=== PATIENT | male | born 1940 | race Caucasian/White ===

== ENCOUNTER 2017-12-11 08:10 | Day surgery (SDC) | payer MEDICARE ==
[2017-12-10 08:16] VITALS: BMI 30.9
[~2017-12-11 08:10] MED LIST: ACETAMINOPHEN 325 MG TABLET (FP) PO PRN; KETOROLAC TROMETHAMINE 0.5% EYE DROP 1 DROP DROPS OD SCH
[2017-12-11] MEDS ORDERED: TROPICAMIDE 1% OPHTH SOLN 15 ML BOTTLE ONE (08:22)
[2017-12-11] MEDS ORDERED: OFLOXACIN 0.3% OPHTHALMIC SOLUTION 5 ML BOTTLE ONE (08:22)
[2017-12-11] MEDS ORDERED: PHENYLEPHRINE 2.5% OPHTH SOLN 15 ML BOTTLE ONE (08:22)
[2017-12-11] MEDS ORDERED: CYCLOPENTOLATE HCL 1% OPHTH SOLN 2 ML BOTTLE ONE (08:22)
[2017-12-11] MEDS: DICLOFENAC SODIUM 0.1% OPHTHALMIC 2.5ML BOTTLE ONE ×3 (08:25→08:35)
[2017-12-11] MEDS: PHENYLEPHRINE 2.5% OPHTH SOLN 15 ML BOTTLE OD SCH ×3 (08:25→08:35)
[2017-12-11] MEDS: CYCLOPENTOLATE HCL 1% OPHTH SOLN 2 ML BOTTLE OD SCH ×3 (08:25→08:35)
[2017-12-11] MEDS: TROPICAMIDE 1% OPHTH SOLN 15 ML BOTTLE OD SCH ×3 (08:25→08:35)
[2017-12-11] MEDS: OFLOXACIN 0.3% OPHTHALMIC SOLUTION 5 ML BOTTLE OD SCH ×3 (08:25→08:35)
[2017-12-11] MEDS ORDERED: MIDAZOLAM HCL 2 MG/2 ML SINGLE DOSE VIAL ONE (09:02)
[2017-12-11] MEDS ORDERED: TETRACAINE 0.5% OPHTH SOLN 2 ML BOTTLE OD ONE (09:11)
[2017-12-11] MEDS ORDERED: POVIDONE-IODINE 5% OPHTHALMIC PREP 30 ML SOLUTION OD ONE (09:13)
[2017-12-11] MEDS ORDERED: BSS (NA/CA/MG/K) BALANCED SALT SOLUTION OPHTH SOLN 15 ML BOTTLE OD ONE (09:23)
[2017-12-11] MEDS ORDERED: LIDOCAINE HCL 1% PRESERVATIVE FREE - 30ML VIAL IO ONE (09:23)
[2017-12-11] MEDS ORDERED: CHONDROITIN SU A/HYALUR SOD 1 KIT IO ONE (09:23)
[2017-12-11] MEDS ORDERED: TRYPAN BLUE 0.5 ML DISP.SYRIN IO ONE (09:29)
[2017-12-11] MEDS ORDERED: EPINEPHrine/PF 1 MG/1 ML (1:1,000) AMPULE SQ ONE (09:38)
[2017-12-11 10:37] VITALS: TEMP 97.9
[2017-12-11] MEDS ORDERED: TRYPAN BLUE 0.5 ML DISP.SYRIN ONE (10:43)
[2017-12-11 11:03] VITALS: BP 114/65; PULSE 80
--- NOTE | 2017-12-11 14:10 | OP ---
DATE OF OPERATION: DATE OF DICTATION: 12/11/2017 PREOPERATIVE DIAGNOSIS: Cataract, right eye. POSTOPERATIVE DIAGNOSIS: Cataract, right eye. OPERATION: Phacoemulsification of right cataract with posterior chamber intraocular lens implantation and capsular staining with Trypan blue, lens used [id number], 19.5 Diopter power, Serial No. [id number]. SURGEON: Charla Sofia M.D. ANESTHESIA: Topical MAC. COMPLICATIONS: None. PROCEDURE: The patient was brought to the operating room and correctly identified along with the operative site as well as correct intraocular lens kidd. He was then prepped and draped in the usual sterile fashion including 5% Betadine solution in the conjunctival sac and an eyelid drape. An eyelid speculum was then placed into the right eye. A paracentesis port was created and 0.5 mL of 1% Lidocaine preservative-free was injected intracamerally to provide analgesia. Viscoelastic was injected to inflate the anterior chamber. A temporal clear corneal would was created. A cystotome was noted to initiate the anterior capsulorrhexis. However, it was difficulty tear the anterior capsule. Visualization became difficult and so Trypan blue was used beneath the viscoelastic to stain the anterior capsule. The continuous circular capsulorrhexis was then performed. The capsule was noted to be somewhat elastic during the capsulorrhexis. The nucleus was then hydro-dissected and hydro-delineated was BSS and removed with phacoemulsification via a [id number] approach. A small wound burn was noted in the superior temporal clear corneal wound. The Viscoelastic was injected to inflate the anterior chamber and the capsular bag and the lens was injected into the capsular bag. The Viscoelastic was irrigated and aspirated from the eye. All wounds were tested after BSS was injected to inflate the anterior chamber. A small amount of leakage was noted to the corneal wound despite maintenance of the anterior chamber. A single 10-0 nylon suture was placed in the center of the temporal clear corneal wound. However, upon further testing, there still seemed to be some microleakage superior at the area of the wound burn. A second suture was placed in that area and then the wound was found to be watertight. The intraocular lens was noted to be well centered and covered by the anterior capsular border. No further suture was placed. Topical Vancomycin was given. The eye was patched and shielded. The patient was discharged from the operating room in stable condition. CHARLA SOFIA M.D. [id number] MTDD
== END 2017-12-11 11:09 | disposition home or self-care (01) ==
LOC: JASU-SURG 08:10
PROVIDERS: ATTEND Ophthalmology
PROC: 08RJ3JZ Replacement of Right Lens with Synthetic Substitute, Percutaneous Approach (ICD-10-PCS; principal; 2017-12-11 09:00)
DX: H26.9 Unspecified cataract (principal)

== ENCOUNTER 2018-03-06 13:11 | Inpatient (IN) | payer MEDICARE ==
--- NOTE | 2018-03-06 13:59 | PDOC ---
History of Present Illness - General Chief Complaint: Pain, Acute Stated Complaint: ARM PAIN Time Seen by Provider: 03/06/18 13:43 History Source: Patient Exam Limitations: No Limitations - History of Present Illness Initial Comments: 03/06/18 14:15 77 year old male with PMH NIDDM, HTN, HLD, gout, HCV (treated; past IVDU) presented to ED for right wrist/hand pain/swelling x2 days. He denied trauma or fall. He denied fever, chills, nausea, vomiting, abdominal pain, lightheadedness , chest pain, shortness of breath, palpitations. Pt was admitted for similar symptoms in 2017, MRI was negative for osteomyelitis , pt was treated with IV antibiotics and discharged. PSH: right wrist compound fracture (1949) Past History - Past Medical History Allergies/Adverse Reactions: Allergies Allergy/AdvReac Type Severity Reaction Status Date / Time No Known Allergies Allergy Verified 03/06/18 13:17 Home Medications: Ambulatory Orders Atorvastatin Ca [Lipitor] 20 mg PO HS 05/09/16 Hydrochlorothiazide [Hctz -] 25 mg PO DAILY 05/09/16 Acetaminophen [Tylenol .Regular Strength -] 650 mg PO Q6H PRN #0 tablet Aspirin 81 mg PO DAILY 03/06/18 Colchicine [Colcrys -] 0.6 mg PO BID 03/06/18 Ibuprofen [Advil -] 200 mg PO DAILY 03/06/18 metFORMIN HCL [Metformin HCl] 500 mg PO DAILY 03/06/18 Anemia: No Asthma: No Cancer: No Cardiac Disorders: No CVA: No COPD: No CHF: No Dementia: No Diabetes: No GI Disorders: No Disorders: No HTN: Yes Hypercholesterolemia: Yes Liver Disease: No Seizures: No Thyroid Disease: No - Surgical History Appendectomy: Yes - Suicide/Smoking/Psychosocial Hx Smoking History: Unknown if ever smoked Have you smoked in the past 12 months: No If you are a former smoker, when did you quit?: 40YRS AGO Hx Alcohol Use: No Drug/Substance Use Hx: No Substance Use Type: None Hx Substance Use Treatment: No Review of Systems - Review of Systems Able to Perform ROS?: Yes Comments:: 03/06/18 15:06 General: denied fever, chills, night sweats, generalized weakness. HEENT: denied sore throat, rhinorrhea, ear pain. Heart: denied chest pain, palpitations, syncope, lower extremity swelling, diaphoresis. Respiratory: denied shortness of breath, cough, sputum production, hemoptysis. Abdomen: denied abdominal pain, nausea, vomiting, diarrhea, constipation, blood in stool. : denied dysuria, increased urinary frequency, hematuria, urinary incontinence , flank pain. Back: denied back pain. Musculoskeletal: admitted to right wrist pain, right hand pain. Neurological: denied headache, dizziness, numbness, tingling, weakness. Skin: denied rash, laceration, abrasion. *Physical Exam - Vital Signs Last Vital Signs Temp Pulse Resp BP Pulse Ox 97.8 F 98 H 20 132/90 98 03/06/18 13:21 03/06/18 13:21 03/06/18 13:21 03/06/18 13:21 03/06/18 13:21 - Physical Exam Comments: 03/06/18 15:06 Constitutional: Well-nourished, Well-developed, appearing stated age. HEENT: head is normocephalic, atraumatic. EOMI. PERRLA. Neck: supple. Full ROM. Heart: regular rhythm. no murmurs, rubs or gallops. Lungs: clear to auscultation bilaterally. no crackles, rhonchi or wheezing. no stridor. Abdomen: soft, nontender. normal bowel sounds. no rebound, guarding, masses. Extremities: right wrist swollen, decreased ROM secondary to pain, erythema, tender to palpation, warm. right hand swollen, erythematous, tenderness to palpation of dorsum of hand, warm. 2+ radial pulse bilaterally. capillary refill <2 seconds. full sensation to right hand. moves all fingers. Neurological: CN 2-12 grossly intact. Moves all four extremities. Psych: awake, alert, oriented x3. Follows commands. Answers questions appropriately. Moderate Sedation - Procedure Monitoring Vital Signs: Procedure Monitoring Vital Signs Temperature 97.8 F 03/06/18 13:21 Pulse Rate 98 H 03/06/18 13:21 Respiratory Rate 20 03/06/18 13:21 Blood Pressure 132/90 03/06/18 13:21 O2 Sat by Pulse Oximetry (%) 98 03/06/18 13:21 ED Treatment Course - LABORATORY CBC & Chemistry Diagram: 03/07/18 06:15 12/07/18 06:15 Medical Decision Making - Medical Decision Making 03/06/18 15:09 77 year old male with PMH cellulitis requiring admission, HTN, DM, HLD presented to ED for right wrist/hand pain/swelling. Initial Vital Signs Temp Pulse Resp BP Pulse Ox 97.8 F 98 H 20 132/90 98 03/06/18 13:21 03/06/18 13:21 03/06/18 13:21 03/06/18 13:21 03/06/18 13:21 Afebrile. No tachycardia. No tachypnea. Mild hypertension. No hypoxia on room air. Pending cbc, cmp, lactate, blood cultures, esr, crp. EKG performed at 1555: rate 77, regular rhythm, normal axis, normal intervals, nonspecific ST changes. Pt has significant cellulitis with decreased ROM of involved joint, concerning for progression that could affect underlying structures. 2+ radial pulse at this time with no sensory deficits. Vancomycin and Zosyn ordered. Normal saline 1000 cc bolus ordered. Tylenol ordered for pain. 03/06/18 15:39 CBC WBC 12.0 K/mm3 (4.0-10.0) H 03/06/18 14:43 RBC 4.64 M/mm3 (4.00-5.60) 03/06/18 14:43 Hgb 14.3 GM/dL (11.7-16.9) 03/06/18 14:43 Hct 44.2 % (35.4-49) 03/06/18 14:43 MCV 95.4 fl (80-96) 03/06/18 14:43 MCH 30.7 pg (25.7-33.7) 03/06/18 14:43 MCHC 32.2 g/dl (32.0-35.9) 03/06/18 14:43 RDW 14.6 % (11.9-15.9) 03/06/18 14:43 Plt Count 260 K/MM3 (134-434) 03/06/18 14:43 MPV 8.2 fl (7.5-11.1) 03/06/18 14:43 Absolute Neuts (auto) 8.0 K/mm3 (1.5-8.0) 03/06/18 14:43 Neutrophils % 66.9 % (42.8-82.8) 03/06/18 14:43 Lymphocytes % 18.4 % (8-40) 03/06/18 14:43 Monocytes % 12.0 % (3.8-10.2) H 03/06/18 14:43 Eosinophils % 2.1 % (0-4.5) 03/06/18 14:43 Basophils % 0.6 % (0-2.0) 03/06/18 14:43 Nucleated RBC % 0 % (0-0) 03/06/18 14:43 Leukocytosis. No anemia. 03/06/18 15:54 CMP Sodium 138 mmol/L (136-145) 03/06/18 14:43 Potassium 3.9 mmol/L (3.5-5.1) 03/06/18 14:43 Chloride 99 mmol/L (98-107) 03/06/18 14:43 Carbon Dioxide 31 mmol/L (21-32) 03/06/18 14:43 Anion Gap 8 MMOL/L (8-16) 03/06/18 14:43 BUN 20 mg/dL (7-18) H 03/06/18 14:43 Creatinine 1.1 mg/dL (0.55-1.3) 03/06/18 14:43 Creat Clearance w eGFR > 60 (>60) 03/06/18 14:43 Random Glucose 114 mg/dL (74-106) H 03/06/18 14:43 Uric Acid 7.8 mg/dL (2.6-7.2) H 03/06/18 14:43 Calcium 9.4 mg/dL (8.5-10.1) 03/06/18 14:43 C-Reactive Protein 5.1 MG/DL (0.00-0.3) H 03/06/18 14:43 No electrolyte abnormalities. No AJAY. Elevated uric acid. Elevate CRP. Elevated ESR, 31. Lactate 3.2 - 1000 cc normal saline bolus given - Will continue to hydrate - Will repeat 03/06/18 18:[address] Cullen about the patient, who will admit the patient to med/ surg. CXR report: well aerated lungs. degenerative sine changes. prominent heart. unfolded aorta. normal alec. some infrahilar calcifications. calcification in the right paratracheal area. Hand/wrist XR: previous stabilization of distal radius fracture with a plate and screws. Degenerative changes most prevalent at the MCP joint. no acute fracture or subluxation. some swelling. no foreign body or soft tissue air. questionable sclerosis in the distal phalynx of the right fourth digit. *DC/Admit/Observation/Transfer Diagnosis at time of Disposition: Cellulitis, Lactic acidosis, Leukocytosis - Discharge Dispostion Condition at time of disposition: Stable Decision to Admit order: Yes - Referrals - Patient Instructions - Post Discharge Activity
--- NOTE | 2018-03-06 15:04 | PDOC ---
Attending Attestation - Resident Resident Name: Allison Kennedy - ED Attending Attestation I have performed the following: I have examined & evaluated the patient, The case was reviewed & discussed with the resident, I agree w/resident's findings & plan, Exceptions are as noted - HPI HPI: 77 yo M hx HTN, HL, gout, HCV, prior compound fracture to the R wrist, recently diagnosed with DM presents with R wrist pain and swelling. No known injury. Denies fever, chills. - Physicial Exam PE: GENERAL: Awake, alert, and fully oriented, in no acute distress HEAD: No signs of trauma EYES: PERRLA, EOMI, sclera anicteric, conjunctiva clear ENT: Auricles normal inspection, hearing grossly normal, nares patent, oropharynx clear without exudates. Moist mucosa NECK: Normal ROM, supple, no lymphadenopathy, JVD, or masses LUNGS: Breath sounds equal, clear to auscultation bilaterally. No wheezes, and no crackles HEART: Regular rate and rhythm, normal S1 and S2, no murmurs, rubs or gallops ABDOMEN: Soft, nontender, normoactive bowel sounds. No guarding, no rebound. No masses EXTREMITIES: R wrist with dec ROM due to pain. +Swelling to the hand and fingers on the R. Remainder of extremities with normal range of motion, no edema. No clubbing or cyanosis. NEUROLOGICAL: Cranial nerves II through XII grossly intact. Normal speech, normal gait SKIN: Warm, Dry, normal turgor, no rashes. +Erythema to the R hand, dorsal surface as well as over the volar surface of the wrist. +Warmth. Cap refill < 2s. +Well-healed scar over the R wrist, dorsal surface. - Medical Decision Making R wrist with redness, swelling concerning for cellulitis (especially in light of recent dx of DM). Also concerning that he has hardware in the wrist from prior surgery. Will give abx and admit.
[2018-03-06 15:11] LABS: BASO % 0.6 % (0-2.0); EOS % 2.1 % (0-4.5); HEMATOCRIT 44.2 % (35.4-49); HEMOGLOBIN 14.3 GM/dL (11.7-16.9); LYMPH % 18.4 % (8-40); MCH 30.7 pg (25.7-33.7); MCHC 32.2 g/dl (32.0-35.9); MEAN CELL VOLUME 95.4 fl (80-96); MEAN PLT VOLUME 8.2 fl (7.5-11.1); NEUT % 66.9 % (42.8-82.8); PLATELET COUNT 260 K/MM3 (134-434); RBC 4.64 M/mm3 (4.00-5.60); RDW 14.6 % (11.9-15.9)
[2018-03-06] MEDS ORDERED: VANCOMYCIN 1,000 MG in DEXTROSE 5%-WATER - 250 ML IVPB ONE (15:11)
[2018-03-06] MEDS ORDERED: PIPERACILLIN/TAZOB 4.5 GM 4.5 GM in DEXTROSE 5%-WATER 100 ML IVPB ONE (15:12)
[2018-03-06] MEDS ORDERED: ACETAMINOPHEN 325 MG TABLET (FP) PO ONE ×2 (15:14→22:00)
[2018-03-06] MEDS ORDERED: SODIUM CHLORIDE 1,000 ML IV STA ×2 (15:14→17:44)
[2018-03-06 15:20] LABS: INR 1.17 (0.83-1.09); PROTHROMBIN TIME (PATIENT) 13.8 SEC (9.7-13.0)
[2018-03-06 15:22] LABS: ACTIVATED PTT 25.9 SECONDS (25.2-36.5)
[2018-03-06] MEDS ORDERED: PIPERACILLIN/TAZOB 4.5 GM 4.5 GM/100 ML BAG IVPB ONE (15:24)
[2018-03-06] MEDS ORDERED: ACETAMINOPHEN 325 MG TABLET (FP) ONE (15:24)
[2018-03-06] MEDS ORDERED: VANCOMYCIN 1 GRAM (PRE-DOCKED) 1,000 MG/250 ML BAG IVPB ONE (15:25)
[2018-03-06 15:27] LABS: ANION GAP 8 MMOL/L (8-16); BLOOD UREA NITROGEN 20 mg/dL (7-18); CALCIUM 9.4 mg/dL (8.5-10.1); CHLORIDE 99 mmol/L (98-107); CO2 31 mmol/L (21-32); CREATININE 1.1 mg/dL (0.55-1.3); GLUCOSE,RANDOM 114 mg/dL (74-106); POTASSIUM 3.9 mmol/L (3.5-5.1); SODIUM 138 mmol/L (136-145); URIC ACID 7.8 mg/dL (2.6-7.2)
[2018-03-07] MEDS: IBUPROFEN 600 MG TABLET (FP) PO PRN ×2 (03:55→09:55)
[2018-03-07] MEDS ORDERED: PIPERACILLIN/TAZOBACTAM 3.375 GM VIAL IVPB ONE ×3 (03:59→17:37)
[2018-03-07] MEDS ORDERED: DEXTROSE 5%-WATER - 50 ML IVPB ONE ×3 (04:00→17:37)
[2018-03-07] MEDS ORDERED: VANCOMYCIN 1 GRAM (PRE-DOCKED) 1,000 MG/250 ML BAG IVPB ONE (04:00)
[2018-03-07] MEDS ORDERED: PIPERACILLIN/TAZOB 3.375 GM 3.375 GM in DEXTROSE 5%-WATER - 50 ML IVPB ONE (05:00)
[2018-03-07] MEDS: metFORMIN HCL 500 MG TABLET (FP) PO SCH (06:14)
[2018-03-07] MEDS: INSULIN SLIDING SCALE (NOVOLOG) 1 VIAL SQ SCH ×4 (06:18→21:19)
[2018-03-07 08:24] LABS: BASO % 0.5 % (0-2.0); EOS % 3.6 % (0-4.5); HEMATOCRIT 39.1 % (35.4-49); HEMOGLOBIN 12.7 GM/dL (11.7-16.9); LYMPH % 24.6 % (8-40); MCHC 32.6 g/dl (32.0-35.9); MEAN CELL VOLUME 95.2 fl (80-96); MEAN PLT VOLUME 8.2 fl (7.5-11.1); MONO % 9.4 % (3.8-10.2); NEUT % 61.9 % (42.8-82.8); PLATELET COUNT 221 K/MM3 (134-434); RBC 4.11 M/mm3 (4.00-5.60); RDW 14.3 % (11.9-15.9); WHITE BLOOD COUNT 11.8 K/mm3 (4.0-10.0)
[2018-03-07 08:46] LABS: ALBUMIN 2.9 g/dl (3.4-5.0); ALK PHOS 64 U/L (45-117); ANION GAP 9 MMOL/L (8-16); BILIRUBIN,TOTAL 0.7 mg/dL (0.2-1); BLOOD UREA NITROGEN 16 mg/dL (7-18); CALCIUM 8.1 mg/dL (8.5-10.1); CHLORIDE 103 mmol/L (98-107); CO2 26 mmol/L (21-32); CREATININE 1.1 mg/dL (0.55-1.3); GLUCOSE,RANDOM 137 mg/dL (74-106); POTASSIUM 3.2 mmol/L (3.5-5.1); SGOT/AST 17 U/L (15-37); SGPT/ALT 13 U/L (13-61); SODIUM 138 mmol/L (136-145); TOT PROT 6.2 g/dl (6.4-8.2)
[2018-03-07] MEDS: ASPIRIN 81 MG CHEWABLE TABLETS PO SCH (09:55)
[2018-03-07] MEDS: HYDROCHLOROTHIAZIDE 25 MG TABLET (FP) PO SCH (09:55)
[2018-03-07] MEDS: HEPARIN NA (PORCINE) 5,000 UNITS/ML 1ML VIAL SQ SCH ×2 (09:56→21:21)
--- NOTE | 2018-03-07 11:46 | EKG ---
Test Reason : Blood Pressure : / mmHG Vent. Rate : 077 BPM Atrial Rate : 077 BPM P-R Int : 144 ms QRS Dur : 088 ms QT Int : 402 ms P-R-T Axes : 037 007 024 degrees QTc Int : 454 ms POOR DATA QUALITY, INTERPRETATION MAY BE ADVERSELY AFFECTED NORMAL SINUS RHYTHM NORMAL ECG NO PREVIOUS ECGS AVAILABLE Confirmed by GABRIEL AQUINO MD ([id number]) on 03/07/2018 11:46:41 AM Referred By: Confirmed By:GABRIEL AQUINO MD
--- NOTE | 2018-03-07 12:27 | CON.ID ---
Consult Consult Specialty:: infectious diseases Referred by:: Reason for Consultation:: swelling of the rt hand - History of Present Illness Chief Complaint: swelling of the rt hand History of Present Illness: 77 year old male with PMH NIDDM, HTN, HLD, gout, HCV (treated; past IVDU) admitted for right wrist/hand pain/swelling x2 days. He denied trauma or fall. He denied fever, chills, nausea, vomiting, abdominal pain, lightheadedness, chest pain, shortness of breath, palpitations. patient does not know how it started and says it suddenly came on. patient also mentions that he has been having pain. patient admitted and iv abx given and patient says that his swelling has improved - History Source History Provided By: Patient Limitations to Obtaining History: No Limitations - Alcohol/Substance Use Hx Alcohol Use: No - Smoking History Smoking history: Unknown if ever smoked Have you smoked in the past 12 months: No If you are a former smoker, when did you quit?: 40YRS AGO Home Medications - Allergies Allergies/Adverse Reactions: Allergies Allergy/AdvReac Type Severity Reaction Status Date / Time No Known Allergies Allergy Verified 03/06/18 13:17 - Home Medications Home Medications: Ambulatory Orders Atorvastatin Ca [Lipitor] 20 mg PO HS 05/09/16 Hydrochlorothiazide [Hctz -] 25 mg PO DAILY 05/09/16 Acetaminophen [Tylenol .Regular Strength -] 650 mg PO Q6H PRN #0 tablet Aspirin 81 mg PO DAILY 03/06/18 Colchicine [Colcrys -] 0.6 mg PO BID 03/06/18 Ibuprofen [Advil -] 200 mg PO DAILY 03/06/18 metFORMIN HCL [Metformin HCl] 500 mg PO DAILY 03/06/18 Review of Systems - Review of Systems Constitutional: reports: No Symptoms Eyes: reports: No Symptoms HENT: reports: No Symptoms Neck: reports: No Symptoms Cardiovascular: reports: No Symptoms Respiratory: reports: No Symptoms Gastrointestinal: reports: No Symptoms Genitourinary: reports: No Symptoms Musculoskeletal: reports: Muscle Weakness Integumentary: reports: Erythema, Other (swelling of the hand) Neurological: reports: No Symptoms Endocrine: reports: No Symptoms Hematology/Lymphatic: reports: No Symptoms Psychiatric: reports: No Symptoms Physical Exam Vital Signs: Vital Signs Temperature 97.6 F 03/07/18 10:00 Pulse Rate 74 03/07/18 10:00 Respiratory Rate 20 03/07/18 10:00 Blood Pressure 137/74 03/07/18 10:00 O2 Sat by Pulse Oximetry (%) 96 03/07/18 09:00 Labs: CBC, BMP 03/07/18 06:15 03/07/18 06:15 Imaging - Results Chest X-ray: Report Reviewed, Image Reviewed X-ray: Report Reviewed, Image Reviewed Assessment/Plan lactic acidosis sepsis leukocytosis swelling of the hand plan will continue vanco and zosyn elevation of the hand await for cx report rest as per the team will order a utox
[2018-03-07] MEDS: PIPERACILLIN/TAZOB 3.375 GM 3.375 GM in DEXTROSE 5%-WATER - 50 ML IVPB SCH ×2 (14:21→17:43)
--- NOTE | 2018-03-07 15:44 | HP ---
Admitting History and Physical - Smoking History Smoking history: Unknown if ever smoked Have you smoked in the past 12 months: No If you are a former smoker, when did you quit?: 40YRS AGO - Alcohol/Substance Use Hx Alcohol Use: No Home Medications - Allergies Allergies/Adverse Reactions: Allergies Allergy/AdvReac Type Severity Reaction Status Date / Time No Known Allergies Allergy Verified 03/06/18 13:17 - Home Medications Home Medications: Ambulatory Orders Atorvastatin Ca [Lipitor] 20 mg PO HS 05/09/16 Hydrochlorothiazide [Hctz -] 25 mg PO DAILY 05/09/16 Acetaminophen [Tylenol .Regular Strength -] 650 mg PO Q6H PRN #0 tablet Aspirin 81 mg PO DAILY 03/06/18 Colchicine [Colcrys -] 0.6 mg PO BID 03/06/18 Ibuprofen [Advil -] 200 mg PO DAILY 03/06/18 metFORMIN HCL [Metformin HCl] 500 mg PO DAILY 03/06/18 Physical Examination Vital Signs: Vital Signs Temperature 97.6 F 03/07/18 10:00 Pulse Rate 74 03/07/18 10:00 Respiratory Rate 20 03/07/18 10:00 Blood Pressure 137/74 03/07/18 10:00 O2 Sat by Pulse Oximetry (%) 96 03/07/18 09:00 Labs: CBC, BMP 03/07/18 06:15 03/07/18 06:15
[2018-03-07] MEDS: VANCOMYCIN 1 GRAM (PRE-DOCKED) 1,000 MG/250 ML BAG IVPB SCH (16:04)
[2018-03-07] MEDS ORDERED: IBUPROFEN 600 MG TABLET (FP) PO PRN (16:24)
[2018-03-07 17:49] LABS: COCAINE, UR NEGATIVE ng/ml (CUTOFF=300); METHADONE, UR NEGATIVE ng/ml (CUTOFF=300); OPIATES, URI NEGATIVE ng/ml (CUTOFF=300); PHENCYCLIDINE,URINE NEGATIVE ng/ml (CUTOFF=25); URINE AMPHETAMINES NEGATIVE ng/ml (CUTOFF=500); URINE BARBITURATES NEGATIVE ng/ml (CUTOFF=200); URINE BENZODIAZEPINES NEGATIVE ng/ml (CUTOFF=200)
[2018-03-07] MEDS ORDERED: VANCOMYCIN 1 GRAM (PRE-DOCKED) 1,000 MG/250 ML BAG IVPB SCH (18:00)
[2018-03-07] MEDS ORDERED: PIPERACILLIN/TAZOB 3.375 GM 3.375 GM in DEXTROSE 5%-WATER - 50 ML IVPB SCH (18:00)
[2018-03-07] MEDS: ATORVASTATIN CA 20 MG TABLET (FP) PO SCH (21:21)
[2018-03-07] MEDS: oxyCODONE HCL 5 MG TABLET PO PRN (22:32)
[2018-03-08] MEDS ORDERED: DEXTROSE 5%-WATER - 50 ML IVPB ONE ×4 (01:36→21:13)
[2018-03-08] MEDS ORDERED: PIPERACILLIN/TAZOBACTAM 3.375 GM VIAL IVPB ONE ×4 (01:36→21:12)
[2018-03-08] MEDS: PIPERACILLIN/TAZOB 3.375 GM 3.375 GM in DEXTROSE 5%-WATER - 50 ML IVPB SCH ×3 (01:47→17:35)
[2018-03-08] MEDS: INSULIN SLIDING SCALE (NOVOLOG) 1 VIAL SQ SCH ×4 (06:03→22:05)
[2018-03-08] MEDS: IBUPROFEN 600 MG TABLET (FP) PO PRN (06:33)
[2018-03-08] MEDS: metFORMIN HCL 500 MG TABLET (FP) PO SCH (06:34)
[2018-03-08] MEDS: ASPIRIN 81 MG CHEWABLE TABLETS PO SCH (09:15)
[2018-03-08] MEDS: HYDROCHLOROTHIAZIDE 25 MG TABLET (FP) PO SCH (09:15)
[2018-03-08] MEDS: HEPARIN NA (PORCINE) 5,000 UNITS/ML 1ML VIAL SQ SCH ×2 (09:16→21:58)
--- NOTE | 2018-03-08 12:05 | CONSULT ---
Consult Consult Specialty:: Hand and Microsurgery Reason for Consultation:: hand swelling - History of Present Illness Chief Complaint: right and swelling History of Present Illness: 77 yo male PMH NIDDM, HTN, HLD, gout, HCV (treated; past IVDU) admitted for right wrist/hand pain/swelling x2 days. He denied trauma or fall. He denied fever, chills, nausea, vomiting, abdominal pain, lightheadedness, chest pain, shortness of breath, palpitations. patient does not know how it started and says it suddenly came on. patient also mentions that he has been having pain. patient admitted and IV Abx given and patient says that his swelling has improved. He had a similar episode a few years back. His ROM is limited and he has numbness in the right hand. The swelling has subsided since admission. reports we were called to assess. - History Source History Provided By: Patient, Medical Record Limitations to Obtaining History: No Limitations - Past Medical History Cardio/Vascular: Yes: HTN, Hyperlipdemia Hepatobiliary: Yes: Hepatitis C Rheumatology: Yes: Gout Additional Medical History: obesity - Alcohol/Substance Use Hx Alcohol Use: No - Smoking History Smoking history: Unknown if ever smoked Have you smoked in the past 12 months: No If you are a former smoker, when did you quit?: 40YRS AGO - Social History Place of : [facility] History of Recent Travel: No Home Medications - Allergies Allergies/Adverse Reactions: Allergies Allergy/AdvReac Type Severity Reaction Status Date / Time No Known Allergies Allergy Verified 03/06/18 13:17 - Home Medications Home Medications: Ambulatory Orders Atorvastatin Ca [Lipitor] 20 mg PO HS 05/09/16 Hydrochlorothiazide [Hctz -] 25 mg PO DAILY 05/09/16 Acetaminophen [Tylenol .Regular Strength -] 650 mg PO Q6H PRN #0 tablet Aspirin 81 mg PO DAILY 03/06/18 Colchicine [Colcrys -] 0.6 mg PO BID 03/06/18 Ibuprofen [Advil -] 200 mg PO DAILY 03/06/18 metFORMIN HCL [Metformin HCl] 500 mg PO DAILY 03/06/18 Review of Systems - Review of Systems Constitutional: denies: Chills, Fever Eyes: denies: Blurred Vision, Recent Change in Vision HENT: denies: Difficult Swallowing, Throat Pain Cardiovascular: denies: Chest Pain, Palpitations Respiratory: denies: Cough, SOB Gastrointestinal: denies: Abdominal Pain Genitourinary: denies: Dysuria, Flank Pain Breasts: reports: No Symptoms Reported. denies: Pain Musculoskeletal: reports: Extremity Pain (right and recurrent swelling), Joint Swelling (Gout) Integumentary: denies: Erythema, Lump, Rash Neurological: denies: Seizure, Syncope Endocrine: denies: Unexplained Weight Gain, Unexplained Weight Loss Hematology/Lymphatic: denies: Easily Bruised, Excessive Bleeding Psychiatric: denies: Anxiety, Depression Physical Exam Vital Signs: Vital Signs Temperature 97.7 F 03/08/18 08:24 Pulse Rate 86 03/08/18 08:24 Respiratory Rate 18 03/08/18 08:24 Blood Pressure 129/76 03/08/18 08:24 O2 Sat by Pulse Oximetry (%) 96 03/07/18 20:05 Vital Signs Period Temp Pulse Resp BP Sys/Holloway Pulse Ox Last 24 Hr 97.6 F-98.0 F 63-86 16-20 116-138/57-87 96 Constitutional: Yes: Well Nourished, No Distress, Calm, Obese Eyes: Yes: Conjunctiva Clear, EOM Intact HENT: Yes: Atraumatic, Normocephalic Neck: Yes: Supple, Trachea Midline Cardiovascular: Yes: Regular Rate and Rhythm, S1, S2 Respiratory: Yes: Regular, CTA Bilaterally Gastrointestinal: Yes: Normal Bowel Sounds, Soft. No: Tenderness Renal/: No: CVA Tenderness - Left, CVA Tenderness - Right Breast(s): No: Discharge from Nipple, Nipple Inversion, Skin Changes Musculoskeletal: No: Joint Swelling, Muscle Pain, Muscle Weakness Extremities: No: Cool, Cyanosis Edema: No Peripheral Pulses WNL: Yes Integumentary: No: Jaundice, Pressure Ulcer, Rash Wound/Incision: Yes: Clean/Dry, Well Approximated Neurological: Yes: Alert, Oriented Psychiatric: Yes: Alert, Oriented Labs: CBC, BMP 03/07/18 06:15 03/07/18 06:15 Imaging - Results X-ray: Report Reviewed, Image Reviewed (No acute fracture or disclocation) Cat Scan: Report Reviewed, Image Reviewed (no obvisous fluid collections adjacent to the hardare in the radial shaft) Problem List - Problems (1) Cellulitis of hand, right Assessment/Plan: right hand acute swelling distally in the forearm hand and all fingers. the differential includes a gout flare versus infectious process adjacent to forearm hardware. Continue IV antibiotics IV fluid hydration CTscan RUE eval soft tissue and fluid elevation of the extremity monitor serum uric acid start colchicine hold ibuprofen start indomethacin OR for explantation of forearm hardware, and carpal tunnel release, and cultures 03/10 Discussed with patient risks, benefits and alternatives for aforementioned procedure, including but not limited to bleeding, infection, injury to adjacent structures, loss of function, need for further procedures, ; alternatives include antibiotics, delayed or no surgery - risks of this include failure of nonoperative therapy, sepsis, recurrence, . Patient desires to proceed with operation - will take to OR for above. Informed consent signed for same. Thank you for the opportunity to participate in the care of this patient. Code(s): L03.113 - CELLULITIS OF RIGHT UPPER LIMB (2) HLD (hyperlipidemia) Code(s): E78.5 - HYPERLIPIDEMIA, UNSPECIFIED Qualifiers: Hyperlipidemia type: pure hypercholesterolemia Qualified Code(s): E78.00 - Pure hypercholesterolemia, unspecified; E78.0 - Pure hypercholesterolemia (3) HTN (hypertension) Code(s): I10 - ESSENTIAL (PRIMARY) HYPERTENSION Qualifiers: Hypertension type: essential hypertension Qualified Code(s): I10 - Essential (primary) hypertension (4) Hepatitis C, chronic Code(s): B18.2 - CHRONIC VIRAL HEPATITIS C Qualifiers: Hepatic coma status: without hepatic coma Qualified Code(s): B18.2 - Chronic viral hepatitis C
[2018-03-08] MEDS: LACTATED RINGERS SOLUTION 1,000 ML/1,000 ML INFUS.BAG IV SCH (12:55)
[2018-03-08] MEDS: VANCOMYCIN 1 GRAM (PRE-DOCKED) 1,000 MG/250 ML BAG IVPB SCH (16:09)
[2018-03-08] MEDS: COLCHICINE 0.6 MG TABLET (FP) PO SCH (16:09)
--- NOTE | 2018-03-08 16:28 | PN ---
Progress Note, Physician History of Present Illness: Pt seen and examined. Events noted. He is alert, afebrile. Reports some improvement in Rt hand edema. Has no other specific complaints. Seen by surgery. CT results noted. - Current Medication List Current Medications: Active Medications Aspirin (Asa -) 81 mg PO DAILY [facility] Last Admin: 03/08/18 09:15 Dose: 81 mg Atorvastatin Calcium (Lipitor -) 20 mg PO HS [facility] Last Admin: 03/07/18 21:21 Dose: 20 mg Colchicine (Colcrys -) 0.6 mg PO DAILY [facility] Last Admin: 03/08/18 16:09 Dose: 0.6 mg Heparin Sodium (Porcine) (Heparin -) 5,000 unit SQ BID [facility] Last Admin: 03/08/18 09:16 Dose: 5,000 unit Hydrochlorothiazide (Hctz -) 25 mg PO DAILY [facility] Last Admin: 03/08/18 09:15 Dose: 25 mg Vancomycin HCl (Vancomycin (Pre-Docked)) 1,000 mg in 250 mls @ 166.667 mls/hr IVPB Q24H [facility]; Protocol Last Admin: 03/08/18 16:09 Dose: 166.667 mls/hr Piperacillin Sod/Tazobactam (Sod 3.375 gm/ Dextrose) 50 mls @ 100 mls/hr IVPB Q8H-[facility]; Protocol Last Admin: 03/08/18 09:15 Dose: 100 mls/hr Lactated Ringer's (Lactated Ringers Solution) 1,000 ml in 1,000 mls @ 125 mls/ hr IV ASDIR [facility] Last Admin: 03/08/18 12:55 Dose: 125 mls/hr Insulin Aspart (Novolog Vial Sliding Scale -) 1 vial SQ ACHS [facility]; Protocol Last Admin: 03/08/18 11:07 Dose: Not Given Metformin HCl (Glucophage -) 500 mg PO DAILY@0700 [facility] Last Admin: 03/08/18 06:34 Dose: 500 mg Oxycodone HCl (Roxicodone -) 5 mg PO Q8H PRN PRN Reason: PAIN LEVEL 6-10 Last Admin: 03/07/18 22:32 Dose: 5 mg - Objective Vital Signs: Vital Signs Temperature 98.0 F 03/08/18 14:18 Pulse Rate 78 03/08/18 14:18 Respiratory Rate 16 03/08/18 14:18 Blood Pressure 128/87 03/08/18 14:18 O2 Sat by Pulse Oximetry (%) 96 03/07/18 20:05 Constitutional: Yes: No Distress, Calm Cardiovascular: Yes: Regular Rate and Rhythm Respiratory: Yes: Regular Gastrointestinal: Yes: Normal Bowel Sounds, Soft Genitourinary: Yes: WNL Edema: Yes (Rt hand/wrist) Integumentary: Yes: Erythema (Rt hand/wrist edema/erythema, mild warmth) Neurological: Yes: Alert, Oriented Labs: CBC, BMP 03/07/18 06:15 03/07/18 06:15 INR, PTT INR 1.17 (0.83-1.09) H 03/06/18 14:43 Blood cultures no growth in 48hrs - ....Imaging Cat Scan: Report Reviewed (Rt hand/forearm soft tissue swelling, no collection, +metallic plate/screws) Problem List - Problems (1) Cellulitis Code(s): L03.90 - CELLULITIS, UNSPECIFIED (2) Lactic acidosis Code(s): E87.2 - ACIDOSIS (3) Leukocytosis Code(s): D72.829 - ELEVATED WHITE BLOOD CELL COUNT, UNSPECIFIED (4) Cellulitis of hand, right Code(s): L03.113 - CELLULITIS OF RIGHT UPPER LIMB (5) HLD (hyperlipidemia) Code(s): E78.5 - HYPERLIPIDEMIA, UNSPECIFIED Qualifiers: Hyperlipidemia type: pure hypercholesterolemia Qualified Code(s): E78.00 - Pure hypercholesterolemia, unspecified; E78.0 - Pure hypercholesterolemia (6) HTN (hypertension) Code(s): I10 - ESSENTIAL (PRIMARY) HYPERTENSION Qualifiers: Hypertension type: essential hypertension Qualified Code(s): I10 - Essential (primary) hypertension (7) Hepatitis C, chronic Code(s): B18.2 - CHRONIC VIRAL HEPATITIS C Qualifiers: Hepatic coma status: without hepatic coma Qualified Code(s): B18.2 - Chronic viral hepatitis C Assessment/Plan Rt hand/wrist edema- possible cellulitis History of Rt wrist fracture - hardward in place Gout -- continue antibiotics, monitor renal function, Vancomycin trough prior to 4th dose -- scheduled for OR , f/u intra-op cultures -- mild improvement continue monitor
--- NOTE | 2018-03-08 21:29 | PN ---
Progress Note, Physician - Current Medication List Current Medications: Active Medications Aspirin (Asa -) 81 mg PO DAILY [facility] Last Admin: 03/08/18 09:15 Dose: 81 mg Atorvastatin Calcium (Lipitor -) 20 mg PO HS [facility] Last Admin: 03/07/18 21:21 Dose: 20 mg Colchicine (Colcrys -) 0.6 mg PO DAILY [facility] Last Admin: 03/08/18 16:09 Dose: 0.6 mg Heparin Sodium (Porcine) (Heparin -) 5,000 unit SQ BID [facility] Last Admin: 03/08/18 09:16 Dose: 5,000 unit Hydrochlorothiazide (Hctz -) 25 mg PO DAILY [facility] Last Admin: 03/08/18 09:15 Dose: 25 mg Vancomycin HCl (Vancomycin (Pre-Docked)) 1,000 mg in 250 mls @ 166.667 mls/hr IVPB Q24H [facility]; Protocol Last Admin: 03/08/18 16:09 Dose: 166.667 mls/hr Piperacillin Sod/Tazobactam (Sod 3.375 gm/ Dextrose) 50 mls @ 100 mls/hr IVPB Q8H-[facility]; Protocol Last Admin: 03/08/18 17:35 Dose: 100 mls/hr Lactated Ringer's (Lactated Ringers Solution) 1,000 ml in 1,000 mls @ 125 mls/ hr IV ASDIR [facility] Last Admin: 03/08/18 12:55 Dose: 125 mls/hr Insulin Aspart (Novolog Vial Sliding Scale -) 1 vial SQ ACHS [facility]; Protocol Last Admin: 03/08/18 16:33 Dose: Not Given Metformin HCl (Glucophage -) 500 mg PO DAILY@0700 [facility] Last Admin: 03/08/18 06:34 Dose: 500 mg Oxycodone HCl (Roxicodone -) 5 mg PO Q8H PRN PRN Reason: PAIN LEVEL 6-10 Last Admin: 03/07/18 22:32 Dose: 5 mg - Objective Vital Signs: Vital Signs Temperature 98.5 F 03/08/18 16:50 Pulse Rate 70 03/08/18 16:50 Respiratory Rate 20 03/08/18 16:50 Blood Pressure 139/91 03/08/18 16:50 O2 Sat by Pulse Oximetry (%) 96 03/08/18 09:00 Labs: CBC, BMP 03/07/18 06:15 03/07/18 06:15 INR, PTT INR 1.17 (0.83-1.09) H 03/06/18 14:43
[2018-03-08] MEDS: oxyCODONE HCL 5 MG TABLET PO PRN (21:57)
[2018-03-08] MEDS: ATORVASTATIN CA 20 MG TABLET (FP) PO SCH (21:57)
[2018-03-09] MEDS: PIPERACILLIN/TAZOB 3.375 GM 3.375 GM in DEXTROSE 5%-WATER - 50 ML IVPB SCH ×3 (01:19→17:24)
[2018-03-09] MEDS: metFORMIN HCL 500 MG TABLET (FP) PO SCH (06:28)
[2018-03-09] MEDS: INSULIN SLIDING SCALE (NOVOLOG) 1 VIAL SQ SCH ×4 (08:25→21:01)
[2018-03-09] MEDS ORDERED: PT OWN MED DRAWER 7, Y5N ONE (09:29)
[2018-03-09] MEDS ORDERED: DEXTROSE 5%-WATER - 50 ML IVPB ONE ×2 (09:31→17:15)
[2018-03-09] MEDS ORDERED: PIPERACILLIN/TAZOBACTAM 3.375 GM VIAL IVPB ONE ×2 (09:31→17:15)
[2018-03-09] MEDS: COLCHICINE 0.6 MG TABLET (FP) PO SCH (09:47)
[2018-03-09] MEDS: ASPIRIN 81 MG CHEWABLE TABLETS PO SCH (09:48)
[2018-03-09] MEDS: HYDROCHLOROTHIAZIDE 25 MG TABLET (FP) PO SCH (09:48)
[2018-03-09] MEDS: HEPARIN NA (PORCINE) 5,000 UNITS/ML 1ML VIAL SQ SCH ×2 (09:50→21:05)
[2018-03-09] MEDS: oxyCODONE HCL 5 MG TABLET PO PRN (10:03)
--- NOTE | 2018-03-09 11:08 | PN ---
Progress Note, Physician History of Present Illness: Pt is doing well. Still with pain in Rt hand/wrist but increased range of motion with less swelling. - Current Medication List Current Medications: Active Medications Aspirin (Asa -) 81 mg PO DAILY [facility] Last Admin: 03/09/18 09:48 Dose: 81 mg Atorvastatin Calcium (Lipitor -) 20 mg PO HS [facility] Last Admin: 03/08/18 21:57 Dose: 20 mg Colchicine (Colcrys -) 0.6 mg PO DAILY [facility] Last Admin: 03/09/18 09:47 Dose: 0.6 mg Heparin Sodium (Porcine) (Heparin -) 5,000 unit SQ BID [facility] Last Admin: 03/09/18 09:50 Dose: 5,000 unit Hydrochlorothiazide (Hctz -) 25 mg PO DAILY [facility] Last Admin: 03/09/18 09:48 Dose: 25 mg Vancomycin HCl (Vancomycin (Pre-Docked)) 1,000 mg in 250 mls @ 166.667 mls/hr IVPB Q24H [facility]; Protocol Last Admin: 03/08/18 16:09 Dose: 166.667 mls/hr Piperacillin Sod/Tazobactam (Sod 3.375 gm/ Dextrose) 50 mls @ 100 mls/hr IVPB Q8H-[facility]; Protocol Last Admin: 03/09/18 09:46 Dose: 100 mls/hr Lactated Ringer's (Lactated Ringers Solution) 1,000 ml in 1,000 mls @ 125 mls/ hr IV ASDIR [facility] Last Admin: 03/08/18 12:55 Dose: 125 mls/hr Insulin Aspart (Novolog Vial Sliding Scale -) 1 vial SQ ACHS [facility]; Protocol Last Admin: 03/09/18 08:25 Dose: Not Given Metformin HCl (Glucophage -) 500 mg PO DAILY@0700 [facility] Last Admin: 03/09/18 06:28 Dose: Not Given Oxycodone HCl (Roxicodone -) 5 mg PO Q8H PRN PRN Reason: PAIN LEVEL 6-10 Last Admin: 03/09/18 10:03 Dose: 5 mg - Objective Vital Signs: Vital Signs Temperature 98.8 F 03/09/18 06:35 Pulse Rate 79 03/09/18 06:35 Respiratory Rate 20 03/09/18 06:35 Blood Pressure 131/72 03/09/18 06:35 O2 Sat by Pulse Oximetry (%) 96 03/08/18 09:00 Constitutional: Yes: No Distress, Calm Cardiovascular: Yes: Regular Rate and Rhythm Respiratory: Yes: Regular Gastrointestinal: Yes: Normal Bowel Sounds, Soft Extremities: Yes: Other (Rt hand/wrist edema decreased, mild erythema, + tenderness) Neurological: Yes: Alert, Oriented Labs: CBC, BMP 03/07/18 06:15 03/07/18 06:15 INR, PTT INR 1.17 (0.83-1.09) H 03/06/18 14:43 Problem List - Problems (1) Cellulitis Code(s): L03.90 - CELLULITIS, UNSPECIFIED (2) Lactic acidosis Code(s): E87.2 - ACIDOSIS (3) Leukocytosis Code(s): D72.829 - ELEVATED WHITE BLOOD CELL COUNT, UNSPECIFIED (4) Cellulitis of hand, right Code(s): L03.113 - CELLULITIS OF RIGHT UPPER LIMB (5) HLD (hyperlipidemia) Code(s): E78.5 - HYPERLIPIDEMIA, UNSPECIFIED Qualifiers: Hyperlipidemia type: pure hypercholesterolemia Qualified Code(s): E78.00 - Pure hypercholesterolemia, unspecified; E78.0 - Pure hypercholesterolemia (6) HTN (hypertension) Code(s): I10 - ESSENTIAL (PRIMARY) HYPERTENSION Qualifiers: Hypertension type: essential hypertension Qualified Code(s): I10 - Essential (primary) hypertension (7) Hepatitis C, chronic Code(s): B18.2 - CHRONIC VIRAL HEPATITIS C Qualifiers: Hepatic coma status: without hepatic coma Qualified Code(s): B18.2 - Chronic viral hepatitis C Assessment/Plan Rt hand/wrist edema- possible cellulitis History of Rt wrist fracture - hardward in place Gout -- continue antibiotics, monitor renal function -- Vancomycin trough ordered -- scheduled for OR , f/u intra-op cultures -- improving edema/erythema, still with tenderness
[2018-03-09 15:33] VITALS: BMI 32.7
--- NOTE | 2018-03-09 17:08 | PN ---
Progress Note, Physician History of Present Illness: No new complaints - Current Medication List Current Medications: Active Medications Aspirin (Asa -) 81 mg PO DAILY [facility] Last Admin: 03/09/18 09:48 Dose: 81 mg Atorvastatin Calcium (Lipitor -) 20 mg PO HS [facility] Last Admin: 03/08/18 21:57 Dose: 20 mg Colchicine (Colcrys -) 0.6 mg PO DAILY [facility] Last Admin: 03/09/18 09:47 Dose: 0.6 mg Heparin Sodium (Porcine) (Heparin -) 5,000 unit SQ BID [facility] Last Admin: 03/09/18 09:50 Dose: 5,000 unit Hydrochlorothiazide (Hctz -) 25 mg PO DAILY [facility] Last Admin: 03/09/18 09:48 Dose: 25 mg Vancomycin HCl (Vancomycin (Pre-Docked)) 1,000 mg in 250 mls @ 166.667 mls/hr IVPB Q24H [facility]; Protocol Last Admin: 03/08/18 16:09 Dose: 166.667 mls/hr Piperacillin Sod/Tazobactam (Sod 3.375 gm/ Dextrose) 50 mls @ 100 mls/hr IVPB Q8H-[facility]; Protocol Last Admin: 03/09/18 09:46 Dose: 100 mls/hr Lactated Ringer's (Lactated Ringers Solution) 1,000 ml in 1,000 mls @ 125 mls/ hr IV ASDIR [facility] Last Admin: 03/08/18 12:55 Dose: 125 mls/hr Insulin Aspart (Novolog Vial Sliding Scale -) 1 vial SQ ACHS [facility]; Protocol Last Admin: 03/09/18 12:09 Dose: Not Given Metformin HCl (Glucophage -) 500 mg PO DAILY@0700 [facility] Last Admin: 03/09/18 06:28 Dose: Not Given Oxycodone HCl (Roxicodone -) 5 mg PO Q8H PRN PRN Reason: PAIN LEVEL 6-10 Last Admin: 03/09/18 10:03 Dose: 5 mg - Objective Vital Signs: Vital Signs Temperature 97.9 F 03/09/18 15:02 Pulse Rate 72 03/09/18 15:02 Respiratory Rate 16 03/09/18 15:02 Blood Pressure 113/63 03/09/18 15:02 O2 Sat by Pulse Oximetry (%) 96 03/09/18 10:00 HENT: Yes: WNL Neck: Yes: WNL, Supple Cardiovascular: Yes: WNL, Regular Rate and Rhythm Respiratory: Yes: WNL, Regular, CTA Bilaterally Gastrointestinal: Yes: WNL, Normal Bowel Sounds, Soft Extremities: Yes: Other (Rt hand swelling/erythema) Labs: CBC, BMP 03/07/18 06:15 03/07/18 06:15 INR, PTT INR 1.17 (0.83-1.09) H 03/06/18 14:43 Problem List - Problems (1) Cellulitis Assessment/Plan: Con t IV antibxs Pt is medically cleared for surgery Code(s): L03.90 - CELLULITIS, UNSPECIFIED (2) Diabetes Assessment/Plan: Cont sliding scale w/ coverage Code(s): E11.9 - TYPE 2 DIABETES MELLITUS WITHOUT COMPLICATIONS (3) HTN (hypertension) Assessment/Plan: BP stable Code(s): I10 - ESSENTIAL (PRIMARY) HYPERTENSION Qualifiers: Hypertension type: essential hypertension Qualified Code(s): I10 - Essential (primary) hypertension (4) HLD (hyperlipidemia) Assessment/Plan: Cont lipitor Code(s): E78.5 - HYPERLIPIDEMIA, UNSPECIFIED Qualifiers: Hyperlipidemia type: pure hypercholesterolemia Qualified Code(s): E78.00 - Pure hypercholesterolemia, unspecified; E78.0 - Pure hypercholesterolemia (5) Hepatitis C, chronic Code(s): B18.2 - CHRONIC VIRAL HEPATITIS C Qualifiers: Hepatic coma status: without hepatic coma Qualified Code(s): B18.2 - Chronic viral hepatitis C
[2018-03-09] MEDS: VANCOMYCIN 1 GRAM (PRE-DOCKED) 1,000 MG/250 ML BAG IVPB SCH (17:23)
[2018-03-09] MEDS: LACTATED RINGERS SOLUTION 1,000 ML/1,000 ML INFUS.BAG IV SCH (17:23)
[2018-03-09 17:40] LABS: BASO % 0.8 % (0-2.0); EOS % 6.1 % (0-4.5); HEMOGLOBIN 13.4 GM/dL (11.7-16.9); MCHC 35.1 g/dl (32.0-35.9); MEAN CELL VOLUME 93.9 fl (80-96); MEAN PLT VOLUME 7.9 fl (7.5-11.1); NEUT % 52.1 % (42.8-82.8); PLATELET COUNT 247 K/MM3 (134-434); RBC 4.05 M/mm3 (4.00-5.60); RDW 14.2 % (11.9-15.9); WHITE BLOOD COUNT 9.3 K/mm3 (4.0-10.0)
[2018-03-09 18:08] LABS: BLOOD UREA NITROGEN 12 mg/dL (7-18); CREATININE 1.3 mg/dL (0.55-1.3); GLUCOSE,RANDOM 86 mg/dL (74-106)
[2018-03-09 18:09] LABS: ALBUMIN 2.9 g/dl (3.4-5.0); ALK PHOS 60 U/L (45-117); ANION GAP 6 MMOL/L (8-16); BILIRUBIN,TOTAL 0.3 mg/dL (0.2-1); CALCIUM 8.4 mg/dL (8.5-10.1); CHLORIDE 101 mmol/L (98-107); CO2 30 mmol/L (21-32); POTASSIUM 3.6 mmol/L (3.5-5.1); SGOT/AST 23 U/L (15-37); SGPT/ALT 18 U/L (13-61); SODIUM 138 mmol/L (136-145); TOT PROT 6.7 g/dl (6.4-8.2)
[2018-03-09] MEDS: ATORVASTATIN CA 20 MG TABLET (FP) PO SCH (21:05)
[2018-03-10] MEDS ORDERED: PIPERACILLIN/TAZOBACTAM 3.375 GM VIAL IVPB ONE ×4 (00:57→17:10)
[2018-03-10] MEDS ORDERED: DEXTROSE 5%-WATER - 50 ML IVPB ONE ×3 (00:58→17:10)
[2018-03-10] MEDS: PIPERACILLIN/TAZOB 3.375 GM 3.375 GM in DEXTROSE 5%-WATER - 50 ML IVPB SCH ×3 (01:09→17:59)
[2018-03-10] MEDS: LACTATED RINGERS SOLUTION 1,000 ML/1,000 ML INFUS.BAG IV SCH (05:52)
[2018-03-10] MEDS: metFORMIN HCL 500 MG TABLET (FP) PO SCH (06:20)
[2018-03-10] MEDS: INSULIN SLIDING SCALE (NOVOLOG) 1 VIAL SQ SCH ×4 (06:20→21:16)
[2018-03-10 07:47] LABS: BASO % 0.8 % (0-2.0); EOS % 5.9 % (0-4.5); HEMATOCRIT 38.9 % (35.4-49); HEMOGLOBIN 13.9 GM/dL (11.7-16.9); LYMPH % 26.2 % (8-40); MCH 33.5 pg (25.7-33.7); MCHC 35.8 g/dl (32.0-35.9); MEAN CELL VOLUME 93.5 fl (80-96); MEAN PLT VOLUME 8.6 fl (7.5-11.1); MONO % 8.8 % (3.8-10.2); NEUT % 58.3 % (42.8-82.8); PLATELET COUNT 269 K/MM3 (134-434); RBC 4.16 M/mm3 (4.00-5.60); RDW 14.4 % (11.9-15.9); WHITE BLOOD COUNT 9.7 K/mm3 (4.0-10.0)
[2018-03-10] MEDS ORDERED: BUPIVACAINE HCL/PF 0.5% (5MG/ML) 10 ML VIAL ONE (08:37)
[2018-03-10 08:51] LABS: ANION GAP 11 MMOL/L (8-16); BLOOD UREA NITROGEN 12 mg/dL (7-18); CALCIUM 8.8 mg/dL (8.5-10.1); CHLORIDE 102 mmol/L (98-107); CO2 25 mmol/L (21-32); CREATININE 1.2 mg/dL (0.55-1.3); GLUCOSE,RANDOM 80 mg/dL (74-106); POTASSIUM 3.6 mmol/L (3.5-5.1); SODIUM 138 mmol/L (136-145)
[2018-03-10] MEDS: HYDROCHLOROTHIAZIDE 25 MG TABLET (FP) PO SCH (09:02)
[2018-03-10] MEDS: COLCHICINE 0.6 MG TABLET (FP) PO SCH (09:02)
[2018-03-10] MEDS: HEPARIN NA (PORCINE) 5,000 UNITS/ML 1ML VIAL SQ SCH ×2 (09:02→21:13)
[2018-03-10] MEDS: ASPIRIN 81 MG CHEWABLE TABLETS PO SCH (09:02)
[2018-03-10] MEDS ORDERED: PROPOFOL 20 ML ONE (09:26)
[2018-03-10] MEDS ORDERED: LIDOCAINE HCL/PF 2% SDV 5ML VIAL ONE (09:26)
[2018-03-10] MEDS ORDERED: ROCURONIUM BROMIDE 50 MG/5 ML VIAL ONE (09:26)
[2018-03-10] MEDS ORDERED: ePHEDrine SULFATE 50 MG/1 ML AMPULE ONE (09:43)
[2018-03-10] MEDS ORDERED: BUPIVACAINE HCL/PF (5 MG/ML) 30 ML VIAL IJ ONE (10:20)
[2018-03-10] MEDS ORDERED: GLYCOPYRROLATE 0.2 MG/1 ML VIAL ONE ×2 (10:21)
[2018-03-10] MEDS ORDERED: NEOSTIGMINE METHYLSULFATE 0.5 MG/ML - 10 ML MDV ONE (10:21)
[2018-03-10] MEDS ORDERED: oxyCODONE HCL 5 MG TABLET PO PRN ×2 (10:44→11:34)
[2018-03-10] MEDS ORDERED: PROMETHAZINE HCL 25 MG/1 ML VIAL IVPUSH PRN (10:44)
[2018-03-10] MEDS ORDERED: ONDANSETRON 4 MG/2 ML VIAL IVPUSH PRN (10:44)
--- NOTE | 2018-03-10 10:44 | OP ---
Operative Note - Note: Pre-Operative Diagnosis: infected hardware right forearm Operation: right carpal tunnel release and explantation of right forearm hardware Findings: minimal clear transparent hardware adjacent to the dorsal fixation plate mid- shaft radius. no pus noted. hardware including two screws and two hole plate. TP 250mmHg, TT 30min Post-Operative Diagnosis: Same as Pre-op Surgeon: Phoenix Gorman Anesthesiologist/DRIFT MINER: Duglas Nation Anesthesia: General, Local (0.5% marcaine and 1% lidocaine 10ml) Specimens Removed: Explanted hardware 2 screws and a 2-hole plate, fluid culture Estimated Blood Loss (mls): 2 Fluid Volume Replaced (mls): 800 Operative Report Dictated: Yes
[2018-03-10] MEDS ORDERED: LACTATED RINGERS SOLUTION 1,000 ML IV SCH (10:45)
[2018-03-10] MEDS ORDERED: MIDAZOLAM HCL 2 MG/2 ML SINGLE DOSE VIAL ONE (10:47)
[2018-03-10] MEDS ORDERED: LACTATED RINGERS SOLUTION 1,000 ML/1,000 ML INFUS.BAG IV SCH (11:34)
[2018-03-10] MEDS: LACTATED RINGERS SOLUTION 1,000 ML IV SCH (11:48)
--- NOTE | 2018-03-10 13:20 | PN ---
Progress Note, Physician History of Present Illness: patient post op swelling has decreased awaiting for cx reports - Current Medication List Current Medications: Active Medications Aspirin (Asa -) 81 mg PO DAILY [facility] Atorvastatin Calcium (Lipitor -) 20 mg PO HS [facility] Colchicine (Colcrys -) 0.6 mg PO DAILY [facility] Heparin Sodium (Porcine) (Heparin -) 5,000 unit SQ BID [facility] Hydrochlorothiazide (Hctz -) 25 mg PO DAILY [facility] Lactated Ringer's (Lactated Ringers Solution) 1,000 mls @ 75 mls/hr IV ASDIR [facility] Last Admin: 03/10/18 11:48 Dose: 0 mls Vancomycin HCl (Vancomycin (Pre-Docked)) 1,000 mg in 250 mls @ 166.667 mls/hr IVPB DAILY@1500 [facility]; Protocol Piperacillin Sod/Tazobactam (Sod 3.375 gm/ Dextrose) 50 mls @ 100 mls/hr IVPB Q8H-[facility]; Protocol Insulin Aspart (Novolog Vial Sliding Scale -) 1 vial SQ ACHS [facility]; Protocol Metformin HCl (Glucophage -) 500 mg PO DAILY@0700 [facility] Oxycodone HCl (Roxicodone -) 5 mg PO Q8H PRN PRN Reason: PAIN LEVEL 6-10 Oxycodone HCl (Roxicodone -) 5 mg PO Q4H PRN PRN Reason: PAIN LEVEL 1-5 Stop: 03/11/18 10:43 - Objective Vital Signs: Vital Signs Temperature 97.8 F 03/10/18 12:33 Pulse Rate 85 03/10/18 12:33 Respiratory Rate 20 03/10/18 12:33 Blood Pressure 134/88 03/10/18 12:33 O2 Sat by Pulse Oximetry (%) 95 03/10/18 12:33 Constitutional: Yes: No Distress, Calm Gastrointestinal: Yes: Normal Bowel Sounds, Soft Musculoskeletal: Yes: WNL Extremities: Yes: Other Neurological: Yes: Alert, Oriented Psychiatric: Yes: Alert Labs: CBC, BMP 03/10/18 06:15 03/10/18 06:15 INR, PTT INR 1.17 (0.83-1.09) H 03/06/18 14:43 Assessment/Plan Problem List - Problems (1) Cellulitis Code(s): L03.90 - CELLULITIS, UNSPECIFIED (2) Lactic acidosis Code(s): E87.2 - ACIDOSIS (3) Leukocytosis Code(s): D72.829 - ELEVATED WHITE BLOOD CELL COUNT, UNSPECIFIED (4) Cellulitis of hand, right Code(s): L03.113 - CELLULITIS OF RIGHT UPPER LIMB (5) HLD (hyperlipidemia) Code(s): E78.5 - HYPERLIPIDEMIA, UNSPECIFIED Qualifiers: Hyperlipidemia type: pure hypercholesterolemia Qualified Code(s): E78.00 - Pure hypercholesterolemia, unspecified; E78.0 - Pure hypercholesterolemia (6) HTN (hypertension) Code(s): I10 - ESSENTIAL (PRIMARY) HYPERTENSION Qualifiers: Hypertension type: essential hypertension Qualified Code(s): I10 - Essential (primary) hypertension (7) Hepatitis C, chronic Code(s): B18.2 - CHRONIC VIRAL HEPATITIS C Qualifiers: Hepatic coma status: without hepatic coma Qualified Code(s): B18.2 - Chronic viral hepatitis C Assessment/Plan Rt hand/wrist edema- cellulitis post op plan continue abx wound care rest as per the team patient stable
--- NOTE | 2018-03-10 14:02 | OP ---
DATE OF OPERATION: 03/10/2018 PREOPERATIVE DIAGNOSIS: Infected hardware right forearm, carpal tunnel compression. POSTOPERATIVE DIAGNOSIS: Infected hardware right forearm, carpal tunnel compression. PROCEDURE: Right carpal tunnel release, explantation right forearm hardware from midshaft radius. ATTENDING SURGEON: Phoenix Gorman MD SHIPPING AND RECEIVING WEIGHER: No one. ANESTHESIA: DrGuille Bradley is not, general with local. Local consisted of 0.5% Marcaine a total of 10 mL given in the area in block fashion. ESTIMATED BLOOD LOSS: 2 mL. IV FLUID: 800 mL. TOURNIQUET PRESSURE: 250 mmHg. TOURNIQUET TIME: 30 minutes. Specimen sent to Pathology. Explanted hardware consisting of 2 screws, a 2-hole plate, undetermined , and a fluid culture from the hardware capsule. INDICATION: The patient is a 77-year-old male presented with acute onset swelling at the site of a 74-year-old fixation. He has a history of gout. He was counseled regarding the need for ex-plantation of hardware to exclude as potential nidus for infection as this was his 2nd presentation with similar unilateral extremity swelling. He was explained the risks, benefits, and alternatives to surgical ex-plantation in addition to carpal tunnel release given his neurocompressive symptoms. He signed informed consent and was taken for the procedure. DESCRIPTION OF PROCEDURE: The patient was brought to the operating room and placed in supine position on the operating table. The lower extremities had SCDs placed to compression. The patient was induced with general anesthesia, endotracheally intubated without incident by Anesthesia. He received intravenous Zosyn, which was his standard dosing just prior to the start of surgery. The right arm was clipped, prepped, and draped in a standard sterile fashion on a hand table perpendicular to the body's midline axis at the shoulder. Tourniquet was applied. After a formal time-out identifying the operative procedures and the site with all parties in agreement, we began with first exsanguination of the arm and inflammation of the tourniquet to 250 mmHg at which point we began first with the right carpal tunnel release. The carpal tunnel on the palm was localized using the ring finger in flexed position to identify the outlet of the carpal tunnel. An incision was scribed and then incised with a 15-blade scalpel. It was deepened and widened through subcutaneous tissue. Care was taken to carry the incision through and through with a limited incision restricted to the palm. Once open, Bovie bipolar cautery was used to obtain hemostasis through dissection of the palmar fat pad superficial to the palmar fascia. This was then cleared through the palm using a [place] elevator. With self-retaining retractor in place, the palmar fascia was then incised at the confluence of the thenar and hypothenar eminence. The transverse carpal ligament once identified was then incised under direct visualization using a 15-blade scalpel through and through its entire depth. A [place] elevator was then atraumatically passed back retrograde into the carpal tunnel protecting the contents, and the transverse carpal ligament in addition to the wrist retinaculum was opened with tenotomy scissors through the level of the wrist. With this completed and the structure completely transected, the self-retaining retractor was replaced into the carpal tunnel. The median nerve was explored and appeared to be atraumatic. The remainder of the palmar fascia was then divided. With this done, the site was irrigated, and the skin was closed. The skin was closed with 4-0 nylon with a central vertical mattress 4-0 nylon everting the skin edges and additional interrupted 4-0 nylons the length of the incisions proximally and distally. With this complete, we turned our attention to the dorsal aspect of the forearm. Hypodermic needle was used using XiScan to isolate and localize the incision so we could allow for a limited incision for ex-plantation. Under direct visualization, the hypodermic needle was placed onto the plate into its plane and a 2-cm incision was scribed at the skin to allow for access to the fibrous capsule window. It was noted when the hypodermic needle was placed adjacent to the hardware there was a gush of transparent, clear fluid from the capsule. The incision was opened with a 15-blade scalpel, deepened and widened through subcutaneous tissue. Care was then taken to carefully clear the scar capsule of the plate and track it down to the capsule of the hardware fixation. With this done, a small amount of the extensors at the musculotendinous junction was cleared atraumatically without dividing the muscle bellies themselves. This allowed for access to the plate. Once the plate capsule could be identified, it was clear that there was a small fluid collection there. It did not appear purulent, and hardware, including a fixation plate and 2 screws, with the [place] head local city driver were noted. An osteotome and wrench were used to explant the screws. Once loose, they were taken in their entirety and sent for pathologic diagnosis. In addition, [place] elevator was used to elevate the plate from the periosteal capsule and send along with the screws. Cultures were then taken in the capsule and the fluid, which remained. The fluid was sent for culture and sensitivity as well as Gram stain. The area was then debrided and irrigated with a rongeur. The area was irrigated with sterile irrigation until clear. We then turned our attention to reapproximating the dorsal musculature capsule superficial on the muscle belly using 4-0 Monocryl in interrupted fashion. We then closed the skin using a whipstitch 4-0 nylon at the skin. The patient was then sterilely dressed at both sites and awoken from anesthesia having tolerated the procedure well after restoring blood flow and relieving the tourniquet. Total tourniquet time was 30 minutes. Hardware was completely explanted. All counts for instruments were correct postoperatively. The patient returned to recovery in stable condition. MD ZENOBIA Sheehan/[id number]
[2018-03-10] MEDS: VANCOMYCIN 1 GRAM (PRE-DOCKED) 1,000 MG/250 ML BAG IVPB SCH (14:14)
[2018-03-10] MEDS ORDERED: INSULIN (NOVOLOG) ASPART 100 UNITS/ML 10ML VIAL ONE ×2 (17:11→21:12)
--- NOTE | 2018-03-10 21:10 | PN ---
Progress Note, Physician - Current Medication List Current Medications: Active Medications Aspirin (Asa -) 81 mg PO DAILY [facility] Atorvastatin Calcium (Lipitor -) 20 mg PO HS [facility] Colchicine (Colcrys -) 0.6 mg PO DAILY [facility] Heparin Sodium (Porcine) (Heparin -) 5,000 unit SQ BID [facility] Hydrochlorothiazide (Hctz -) 25 mg PO DAILY [facility] Lactated Ringer's (Lactated Ringers Solution) 1,000 mls @ 75 mls/hr IV [facility] Last Admin: 03/10/18 11:48 Dose: 0 mls Vancomycin HCl (Vancomycin (Pre-Docked)) 1,000 mg in 250 mls @ 166.667 mls/hr IVPB DAILY@1500 [facility]; Protocol Last Admin: 03/10/18 14:14 Dose: 166.667 mls/hr Piperacillin Sod/Tazobactam (Sod 3.375 gm/ Dextrose) 50 mls @ 100 mls/hr IVPB Q8H-IV [facility]; Protocol Last Admin: 03/10/18 17:59 Dose: 100 mls/hr Insulin Aspart (Novolog Vial Sliding Scale -) 1 vial SQ ACHS [facility]; Protocol Last Admin: 03/10/18 17:31 Dose: 2 units Metformin HCl (Glucophage -) 500 mg PO DAILY@0700 [facility] Oxycodone HCl (Roxicodone -) 5 mg PO Q8H PRN PRN Reason: PAIN LEVEL 6-10 Oxycodone HCl (Roxicodone -) 5 mg PO Q4H PRN PRN Reason: PAIN LEVEL 1-5 Stop: 03/11/18 10:43 - Objective Vital Signs: Vital Signs Temperature 98.2 F 03/10/18 16:15 Pulse Rate 90 03/10/18 16:15 Respiratory Rate 18 03/10/18 16:15 Blood Pressure 120/75 03/10/18 16:15 O2 Sat by Pulse Oximetry (%) 95 03/10/18 12:33 Labs: CBC, BMP 03/10/18 06:15 03/10/18 06:15 INR, PTT INR 1.17 (0.83-1.09) H 03/06/18 14:43 Problem List - Problems (1) Cellulitis Code(s): L03.90 - CELLULITIS, UNSPECIFIED (2) Diabetes Code(s): E11.9 - TYPE 2 DIABETES MELLITUS WITHOUT COMPLICATIONS (3) HTN (hypertension) Code(s): I10 - ESSENTIAL (PRIMARY) HYPERTENSION Qualifiers: Hypertension type: essential hypertension Qualified Code(s): I10 - Essential (primary) hypertension (4) HLD (hyperlipidemia) Code(s): E78.5 - HYPERLIPIDEMIA, UNSPECIFIED Qualifiers: Hyperlipidemia type: pure hypercholesterolemia Qualified Code(s): E78.00 - Pure hypercholesterolemia, unspecified; E78.0 - Pure hypercholesterolemia (5) Hepatitis C, chronic Code(s): B18.2 - CHRONIC VIRAL HEPATITIS C Qualifiers: Hepatic coma status: without hepatic coma Qualified Code(s): B18.2 - Chronic viral hepatitis C
[2018-03-10] MEDS: ATORVASTATIN CA 20 MG TABLET (FP) PO SCH (21:14)
[2018-03-11] MEDS ORDERED: DEXTROSE 5%-WATER - 50 ML IVPB ONE ×3 (01:16→17:27)
[2018-03-11] MEDS ORDERED: PIPERACILLIN/TAZOBACTAM 3.375 GM VIAL IVPB ONE ×3 (01:16→17:27)
[2018-03-11] MEDS: PIPERACILLIN/TAZOB 3.375 GM 3.375 GM in DEXTROSE 5%-WATER - 50 ML IVPB SCH ×3 (01:44→17:41)
[2018-03-11] MEDS: LACTATED RINGERS SOLUTION 1,000 ML IV SCH ×2 (06:39→11:41)
[2018-03-11] MEDS: INSULIN SLIDING SCALE (NOVOLOG) 1 VIAL SQ SCH ×4 (06:43→22:21)
[2018-03-11] MEDS: metFORMIN HCL 500 MG TABLET (FP) PO SCH (06:43)
[2018-03-11] MEDS: COLCHICINE 0.6 MG TABLET (FP) PO SCH (09:22)
[2018-03-11] MEDS: HYDROCHLOROTHIAZIDE 25 MG TABLET (FP) PO SCH (09:22)
[2018-03-11] MEDS: ASPIRIN 81 MG CHEWABLE TABLETS PO SCH (09:22)
[2018-03-11] MEDS: HEPARIN NA (PORCINE) 5,000 UNITS/ML 1ML VIAL SQ SCH ×2 (09:23→22:22)
[2018-03-11] MEDS ORDERED: oxyCODONE HCL 5 MG TABLET PO PRN (11:34)
--- NOTE | 2018-03-11 12:19 | PN ---
Progress Note, Physician History of Present Illness: patient post op swelling has decreased - Current Medication List Current Medications: Active Medications Aspirin (Asa -) 81 mg PO DAILY [facility] Last Admin: 03/11/18 09:22 Dose: 81 mg Atorvastatin Calcium (Lipitor -) 20 mg PO HS [facility] Last Admin: 03/10/18 21:14 Dose: 20 mg Colchicine (Colcrys -) 0.6 mg PO DAILY [facility] Last Admin: 03/11/18 09:22 Dose: 0.6 mg Heparin Sodium (Porcine) (Heparin -) 5,000 unit SQ BID [facility] Last Admin: 03/11/18 09:23 Dose: 5,000 unit Hydrochlorothiazide (Hctz -) 25 mg PO DAILY [facility] Last Admin: 03/11/18 09:22 Dose: 25 mg Lactated Ringer's (Lactated Ringers Solution) 1,000 mls @ 75 mls/hr IV ASDIR [facility] Last Admin: 03/11/18 11:41 Dose: Not Given Vancomycin HCl (Vancomycin (Pre-Docked)) 1,000 mg in 250 mls @ 166.667 mls/hr IVPB DAILY@1500 [facility]; Protocol Last Admin: 03/10/18 14:14 Dose: 166.667 mls/hr Piperacillin Sod/Tazobactam (Sod 3.375 gm/ Dextrose) 50 mls @ 100 mls/hr IVPB Q8H-IV [facility]; Protocol Last Admin: 03/11/18 09:28 Dose: 100 mls/hr Insulin Aspart (Novolog Vial Sliding Scale -) 1 vial SQ ACHS [facility]; Protocol Last Admin: 03/11/18 11:41 Dose: Not Given Metformin HCl (Glucophage -) 500 mg PO DAILY@0700 [facility] Last Admin: 03/11/18 06:43 Dose: 500 mg Oxycodone HCl (Roxicodone -) 5 mg PO Q8H PRN PRN Reason: PAIN LEVEL 6-10 - Objective Vital Signs: Vital Signs Temperature 97.5 F L 03/11/18 06:00 Pulse Rate 62 03/11/18 06:00 Respiratory Rate 20 03/11/18 06:00 Blood Pressure 116/61 03/11/18 06:00 O2 Sat by Pulse Oximetry (%) 94 L 03/11/18 09:00 Constitutional: Yes: No Distress, Calm Cardiovascular: Yes: Regular Rate and Rhythm Respiratory: Yes: Regular, CTA Bilaterally Gastrointestinal: Yes: Normal Bowel Sounds, Soft Musculoskeletal: Yes: Other Extremities: Yes: Other Neurological: Yes: Alert, Oriented Psychiatric: Yes: Alert, Oriented Labs: CBC, BMP 03/10/18 06:15 03/10/18 06:15 INR, PTT INR 1.17 (0.83-1.09) H 03/06/18 14:43 Assessment/Plan Problem List - Problems (1) Cellulitis Code(s): L03.90 - CELLULITIS, UNSPECIFIED (2) Lactic acidosis Code(s): E87.2 - ACIDOSIS (3) Leukocytosis Code(s): D72.829 - ELEVATED WHITE BLOOD CELL COUNT, UNSPECIFIED (4) Cellulitis of hand, right Code(s): L03.113 - CELLULITIS OF RIGHT UPPER LIMB (5) HLD (hyperlipidemia) Code(s): E78.5 - HYPERLIPIDEMIA, UNSPECIFIED Qualifiers: Hyperlipidemia type: pure hypercholesterolemia Qualified Code(s): E78.00 - Pure hypercholesterolemia, unspecified; E78.0 - Pure hypercholesterolemia (6) HTN (hypertension) Code(s): I10 - ESSENTIAL (PRIMARY) HYPERTENSION Qualifiers: Hypertension type: essential hypertension Qualified Code(s): I10 - Essential (primary) hypertension (7) Hepatitis C, chronic Code(s): B18.2 - CHRONIC VIRAL HEPATITIS C Qualifiers: Hepatic coma status: without hepatic coma Qualified Code(s): B18.2 - Chronic viral hepatitis C Assessment/Plan Rt hand/wrist edema- cellulitis post op plan continue abx swelling decreasing prelim cx negative so far wound care
[2018-03-11] MEDS: VANCOMYCIN 1 GRAM (PRE-DOCKED) 1,000 MG/250 ML BAG IVPB SCH (14:13)
--- NOTE | 2018-03-11 15:00 | PN ---
Progress Note (short form) - Note Progress Note: ANESTHESIA POST-OP CHECK 77M s/p right arm removal of hardware and carpal tunnel release under general anesthesia, POD #1. No acute complaints. Denies N/V. Pain controlled. Vital Signs Temperature 97.5 F L 03/11/18 06:00 Pulse Rate 62 03/11/18 06:00 Respiratory Rate 20 03/11/18 06:00 Blood Pressure 116/61 03/11/18 06:00 O2 Sat by Pulse Oximetry (%) 94 L 03/11/18 09:00 Active Medications Aspirin (Asa -) 81 mg PO DAILY [facility] Last Admin: 03/11/18 09:22 Dose: 81 mg Atorvastatin Calcium (Lipitor -) 20 mg PO HS [facility] Last Admin: 03/10/18 21:14 Dose: 20 mg Colchicine (Colcrys -) 0.6 mg PO DAILY [facility] Last Admin: 03/11/18 09:22 Dose: 0.6 mg Heparin Sodium (Porcine) (Heparin -) 5,000 unit SQ BID [facility] Last Admin: 03/11/18 09:23 Dose: 5,000 unit Hydrochlorothiazide (Hctz -) 25 mg PO DAILY [facility] Last Admin: 03/11/18 09:22 Dose: 25 mg Lactated Ringer's (Lactated Ringers Solution) 1,000 mls @ 75 mls/hr IV ASDIR [facility] Last Admin: 03/11/18 11:41 Dose: Not Given Vancomycin HCl (Vancomycin (Pre-Docked)) 1,000 mg in 250 mls @ 166.667 mls/hr IVPB DAILY@1500 [facility]; Protocol Last Admin: 03/11/18 14:13 Dose: 166.667 mls/hr Piperacillin Sod/Tazobactam (Sod 3.375 gm/ Dextrose) 50 mls @ 100 mls/hr IVPB Q8H-IV [facility]; Protocol Last Admin: 03/11/18 09:28 Dose: 100 mls/hr Insulin Aspart (Novolog Vial Sliding Scale -) 1 vial SQ ACHS [facility]; Protocol Last Admin: 03/11/18 11:41 Dose: Not Given Metformin HCl (Glucophage -) 500 mg PO DAILY@0700 [facility] Last Admin: 03/11/18 06:43 Dose: 500 mg Oxycodone HCl (Roxicodone -) 5 mg PO Q8H PRN PRN Reason: PAIN LEVEL 6-10 Gen: awake, alert No apparent anesthesia complications. Pain controlled. Continue management as per primary team
--- NOTE | 2018-03-11 17:11 | PN ---
Progress Note, Physician Chief Complaint: right upper extremity distal edema History of Present Illness: 77 yo male PMH NIDDM, HTN, HLD, gout, HCV (treated; past IVDU) admitted for right wrist/hand pain/swelling x2 days. stable post operatively - Current Medication List Current Medications: Active Medications Aspirin (Asa -) 81 mg PO DAILY [facility] Last Admin: 03/11/18 09:22 Dose: 81 mg Atorvastatin Calcium (Lipitor -) 20 mg PO HS [facility] Last Admin: 03/10/18 21:14 Dose: 20 mg Colchicine (Colcrys -) 0.6 mg PO DAILY [facility] Last Admin: 03/11/18 09:22 Dose: 0.6 mg Heparin Sodium (Porcine) (Heparin -) 5,000 unit SQ BID [facility] Last Admin: 03/11/18 09:23 Dose: 5,000 unit Hydrochlorothiazide (Hctz -) 25 mg PO DAILY [facility] Last Admin: 03/11/18 09:22 Dose: 25 mg Lactated Ringer's (Lactated Ringers Solution) 1,000 mls @ 75 mls/hr IV ASDIR [facility] Last Admin: 03/11/18 11:41 Dose: Not Given Vancomycin HCl (Vancomycin (Pre-Docked)) 1,000 mg in 250 mls @ 166.667 mls/hr IVPB DAILY@1500 [facility]; Protocol Last Admin: 03/11/18 14:13 Dose: 166.667 mls/hr Piperacillin Sod/Tazobactam (Sod 3.375 gm/ Dextrose) 50 mls @ 100 mls/hr IVPB Q8H-IV [facility]; Protocol Last Admin: 03/11/18 09:28 Dose: 100 mls/hr Insulin Aspart (Novolog Vial Sliding Scale -) 1 vial SQ ACHS [facility]; Protocol Last Admin: 03/11/18 11:41 Dose: Not Given Metformin HCl (Glucophage -) 500 mg PO DAILY@0700 [facility] Last Admin: 03/11/18 06:43 Dose: 500 mg Oxycodone HCl (Roxicodone -) 5 mg PO Q8H PRN PRN Reason: PAIN LEVEL 6-10 - Objective Vital Signs: Vital Signs Temperature 98 F 03/11/18 10:00 Pulse Rate 70 03/11/18 10:00 Respiratory Rate 20 03/11/18 10:00 Blood Pressure 138/77 03/11/18 10:00 O2 Sat by Pulse Oximetry (%) 94 L 03/11/18 09:00 Vital Signs Period Temp Pulse Resp BP Sys/Holloway Pulse Ox Last 24 Hr 97.5 F-98 F 62-100 18-20 116-138/61-84 94-94 Constitutional: Yes: Well Nourished, No Distress, Calm, Obese Eyes: Yes: Conjunctiva Clear, EOM Intact HENT: Yes: Atraumatic, Normocephalic Neck: Yes: Supple, Trachea Midline Cardiovascular: Yes: Regular Rate and Rhythm, S1, S2 Respiratory: Yes: Regular, CTA Bilaterally Gastrointestinal: Yes: Normal Bowel Sounds, Soft ...Rectal Exam: Yes: Deferred Genitourinary: No: CVA Tenderness - Left, CVA Tenderness - Right Musculoskeletal: No: Muscle Pain, Muscle Weakness Extremities: No: Cool, Cyanosis Edema: RUE: 2+ Peripheral Pulses WNL: Yes Peripheral Pulses: Left Radial: 2+, Right Radial: 2+, Left Doralis Pedis: 2+, Right Dorsalis Pedis: 2+, Left Femoral: 2+, Right Femoral: 2+ Wound/Incision: Yes: Clean/Dry, Well Approximated Neurological: Yes: Alert, Oriented ...Motor Strength: WNL Psychiatric: Yes: Alert, Oriented Labs: CBC, BMP 03/10/18 06:15 03/10/18 06:15 INR, PTT INR 1.17 (0.83-1.09) H 03/06/18 14:43 Problem List - Problems (1) Cellulitis of hand, right Assessment/Plan: right hand acute swelling distally in the forearm hand and all fingers. the differential includes a gout flare versus infectious process adjacent to forearm hardware. POD#1 s/p right CTR and removal of hardware radius Continue IV antibiotics IV fluid hydration Remove dressing tomorrow elevation or RUE will follow Code(s): L03.113 - CELLULITIS OF RIGHT UPPER LIMB (2) HLD (hyperlipidemia) Code(s): E78.5 - HYPERLIPIDEMIA, UNSPECIFIED Qualifiers: Hyperlipidemia type: pure hypercholesterolemia Qualified Code(s): E78.00 - Pure hypercholesterolemia, unspecified; E78.0 - Pure hypercholesterolemia (3) HTN (hypertension) Code(s): I10 - ESSENTIAL (PRIMARY) HYPERTENSION Qualifiers: Hypertension type: essential hypertension Qualified Code(s): I10 - Essential (primary) hypertension (4) Hepatitis C, chronic Code(s): B18.2 - CHRONIC VIRAL HEPATITIS C Qualifiers: Hepatic coma status: without hepatic coma Qualified Code(s): B18.2 - Chronic viral hepatitis C
--- NOTE | 2018-03-11 17:18 | PATH ---
Surgical Pathology Report Patient Name: DEJA MEJIA Med. Rec. #: [id number] /Age/Gender: 1940 (Age: 77) / M Account: [id number] Location: [facility] MED/SURG Taken: 03/10/2018 Received: 03/10/2018 Reported: 03/11/2018 Physicians: Tacho Sheehan M.D. Specimen(s) Received REMOVED HARDWARE RIGHT FOREARM Clinical History Infected hardware, carpal tunnel compression right forearm Final Diagnosis FOREARM, RIGHT, HARDWARE, REMOVAL: SURGICAL HARDWARE. MACROSCOPIC DIAGNOSIS. Electronically Signed Kristine Man M.D. Gross Description Received fresh labeled "removed hardware right forearm," is a 3.5 cm in greatest dimension jay metallic plate. Also received within the same container are 2 jay metallic screws averaging 1.4 cm in length. No soft tissue is present. No sections are submitted, gross only. /03/10/201803/10/2018
--- NOTE | 2018-03-11 19:48 | PN ---
Progress Note, Physician History of Present Illness: No new complaints - Current Medication List Current Medications: Active Medications Aspirin (Asa -) 81 mg PO DAILY [facility] Last Admin: 03/11/18 09:22 Dose: 81 mg Atorvastatin Calcium (Lipitor -) 20 mg PO HS [facility] Last Admin: 03/10/18 21:14 Dose: 20 mg Colchicine (Colcrys -) 0.6 mg PO DAILY [facility] Last Admin: 03/11/18 09:22 Dose: 0.6 mg Heparin Sodium (Porcine) (Heparin -) 5,000 unit SQ BID [facility] Last Admin: 03/11/18 09:23 Dose: 5,000 unit Hydrochlorothiazide (Hctz -) 25 mg PO DAILY [facility] Last Admin: 03/11/18 09:22 Dose: 25 mg Lactated Ringer's (Lactated Ringers Solution) 1,000 mls @ 75 mls/hr IV ASDIR [facility] Last Admin: 03/11/18 11:41 Dose: Not Given Vancomycin HCl (Vancomycin (Pre-Docked)) 1,000 mg in 250 mls @ 166.667 mls/hr IVPB DAILY@1500 [facility]; Protocol Last Admin: 03/11/18 14:13 Dose: 166.667 mls/hr Piperacillin Sod/Tazobactam (Sod 3.375 gm/ Dextrose) 50 mls @ 100 mls/hr IVPB Q8H-IV [facility]; Protocol Last Admin: 03/11/18 17:41 Dose: 100 mls/hr Insulin Aspart (Novolog Vial Sliding Scale -) 1 vial SQ ACHS [facility]; Protocol Last Admin: 03/11/18 17:31 Dose: Not Given Metformin HCl (Glucophage -) 500 mg PO DAILY@0700 [facility] Last Admin: 03/11/18 06:43 Dose: 500 mg Oxycodone HCl (Roxicodone -) 5 mg PO Q8H PRN PRN Reason: PAIN LEVEL 6-10 - Objective Vital Signs: Vital Signs Temperature 98 F 03/11/18 16:15 Pulse Rate 70 03/11/18 16:15 Respiratory Rate 20 03/11/18 16:15 Blood Pressure 117/70 03/11/18 16:15 O2 Sat by Pulse Oximetry (%) 94 L 03/11/18 09:00 Neck: Yes: WNL, Supple Cardiovascular: Yes: WNL, Regular Rate and Rhythm Respiratory: Yes: WNL, Regular, CTA Bilaterally Gastrointestinal: Yes: WNL, Normal Bowel Sounds, Soft Extremities: Yes: Other Labs: CBC, BMP 03/10/18 06:15 03/10/18 06:15 INR, PTT INR 1.17 (0.83-1.09) H 03/06/18 14:43 Problem List - Problems (1) Cellulitis Assessment/Plan: S/P CTR and hardware removal rt radius Con t IV antibxs Code(s): L03.90 - CELLULITIS, UNSPECIFIED (2) Diabetes Assessment/Plan: Cont sliding scale w/ coverage Code(s): E11.9 - TYPE 2 DIABETES MELLITUS WITHOUT COMPLICATIONS (3) HTN (hypertension) Assessment/Plan: BP stable Code(s): I10 - ESSENTIAL (PRIMARY) HYPERTENSION Qualifiers: Hypertension type: essential hypertension Qualified Code(s): I10 - Essential (primary) hypertension (4) HLD (hyperlipidemia) Assessment/Plan: Cont lipitor Code(s): E78.5 - HYPERLIPIDEMIA, UNSPECIFIED Qualifiers: Hyperlipidemia type: pure hypercholesterolemia Qualified Code(s): E78.00 - Pure hypercholesterolemia, unspecified; E78.0 - Pure hypercholesterolemia (5) Hepatitis C, chronic Code(s): B18.2 - CHRONIC VIRAL HEPATITIS C Qualifiers: Hepatic coma status: without hepatic coma Qualified Code(s): B18.2 - Chronic viral hepatitis C
[2018-03-11] MEDS: ATORVASTATIN CA 20 MG TABLET (FP) PO SCH (22:22)
[2018-03-12] MEDS ORDERED: DEXTROSE 5%-WATER - 50 ML IVPB ONE ×3 (02:20→17:55)
[2018-03-12] MEDS ORDERED: PIPERACILLIN/TAZOBACTAM 3.375 GM VIAL IVPB ONE ×3 (02:20→17:55)
[2018-03-12] MEDS: PIPERACILLIN/TAZOB 3.375 GM 3.375 GM in DEXTROSE 5%-WATER - 50 ML IVPB SCH ×3 (02:29→18:06)
[2018-03-12] MEDS: metFORMIN HCL 500 MG TABLET (FP) PO SCH (06:09)
[2018-03-12] MEDS: INSULIN SLIDING SCALE (NOVOLOG) 1 VIAL SQ SCH ×4 (06:11→23:23)
[2018-03-12] MEDS: COLCHICINE 0.6 MG TABLET (FP) PO SCH (09:52)
[2018-03-12] MEDS: HEPARIN NA (PORCINE) 5,000 UNITS/ML 1ML VIAL SQ SCH ×2 (09:52→23:22)
[2018-03-12] MEDS: HYDROCHLOROTHIAZIDE 25 MG TABLET (FP) PO SCH (09:52)
[2018-03-12] MEDS: ASPIRIN 81 MG CHEWABLE TABLETS PO SCH (09:52)
--- NOTE | 2018-03-12 11:12 | PN ---
Progress Note, Physician History of Present Illness: patient post op swelling has decreased dressing clean and dry - Current Medication List Current Medications: Active Medications Aspirin (Asa -) 81 mg PO DAILY [facility] Last Admin: 03/12/18 09:52 Dose: 81 mg Atorvastatin Calcium (Lipitor -) 20 mg PO HS [facility] Last Admin: 03/11/18 22:22 Dose: 20 mg Colchicine (Colcrys -) 0.6 mg PO DAILY [facility] Last Admin: 03/12/18 09:52 Dose: 0.6 mg Heparin Sodium (Porcine) (Heparin -) 5,000 unit SQ BID [facility] Last Admin: 03/12/18 09:52 Dose: 5,000 unit Hydrochlorothiazide (Hctz -) 25 mg PO DAILY [facility] Last Admin: 03/12/18 09:52 Dose: 25 mg Lactated Ringer's (Lactated Ringers Solution) 1,000 mls @ 75 mls/hr IV ASDIR [facility] Last Admin: 03/11/18 11:41 Dose: Not Given Vancomycin HCl (Vancomycin (Pre-Docked)) 1,000 mg in 250 mls @ 166.667 mls/hr IVPB DAILY@1500 [facility]; Protocol Last Admin: 03/11/18 14:13 Dose: 166.667 mls/hr Piperacillin Sod/Tazobactam (Sod 3.375 gm/ Dextrose) 50 mls @ 100 mls/hr IVPB Q8H-IV [facility]; Protocol Last Admin: 03/12/18 09:52 Dose: 100 mls/hr Insulin Aspart (Novolog Vial Sliding Scale -) 1 vial SQ ACHS [facility]; Protocol Last Admin: 03/12/18 06:11 Dose: Not Given Metformin HCl (Glucophage -) 500 mg PO DAILY@0700 [facility] Last Admin: 03/12/18 06:09 Dose: 500 mg Oxycodone HCl (Roxicodone -) 5 mg PO Q8H PRN PRN Reason: PAIN LEVEL 6-10 - Objective Vital Signs: Vital Signs Temperature 97.6 F 03/12/18 09:58 Pulse Rate 74 03/12/18 09:58 Respiratory Rate 18 03/12/18 09:58 Blood Pressure 151/93 03/12/18 09:58 O2 Sat by Pulse Oximetry (%) 96 03/11/18 21:00 Constitutional: Yes: No Distress, Calm Neck: Yes: Supple Cardiovascular: Yes: Regular Rate and Rhythm Respiratory: Yes: Regular, CTA Bilaterally Gastrointestinal: Yes: Normal Bowel Sounds, Soft Genitourinary: Yes: WNL Musculoskeletal: Yes: WNL Extremities: Yes: WNL Neurological: Yes: Alert, Oriented Psychiatric: Yes: Alert, Oriented Labs: CBC, BMP 03/10/18 06:15 03/10/18 06:15 INR, PTT INR 1.17 (0.83-1.09) H 03/06/18 14:43 Assessment/Plan Problem List - Problems (1) Cellulitis Code(s): L03.90 - CELLULITIS, UNSPECIFIED (2) Lactic acidosis Code(s): E87.2 - ACIDOSIS (3) Leukocytosis Code(s): D72.829 - ELEVATED WHITE BLOOD CELL COUNT, UNSPECIFIED (4) Cellulitis of hand, right Code(s): L03.113 - CELLULITIS OF RIGHT UPPER LIMB (5) HLD (hyperlipidemia) Code(s): E78.5 - HYPERLIPIDEMIA, UNSPECIFIED Qualifiers: Hyperlipidemia type: pure hypercholesterolemia Qualified Code(s): E78.00 - Pure hypercholesterolemia, unspecified; E78.0 - Pure hypercholesterolemia (6) HTN (hypertension) Code(s): I10 - ESSENTIAL (PRIMARY) HYPERTENSION Qualifiers: Hypertension type: essential hypertension Qualified Code(s): I10 - Essential (primary) hypertension (7) Hepatitis C, chronic Code(s): B18.2 - CHRONIC VIRAL HEPATITIS C Qualifiers: Hepatic coma status: without hepatic coma Qualified Code(s): B18.2 - Chronic viral hepatitis C Assessment/Plan Rt hand/wrist edema- cellulitis post op plan continue abx will deescalte soon rest as per the team swelling much better
[2018-03-12] MEDS ORDERED: FUROSEMIDE 40 MG/4 ML INJECTABLE VIAL IVPUSH ONE (13:00)
[2018-03-12] MEDS: LACTATED RINGERS SOLUTION 1,000 ML IV SCH (13:09)
[2018-03-12] MEDS: VANCOMYCIN 1 GRAM (PRE-DOCKED) 1,000 MG/250 ML BAG IVPB SCH (15:37)
[2018-03-12] MEDS ORDERED: INSULIN (NOVOLOG MIX 70/30) 100 UNITS/ML MDV SQ ONE (17:54)
[2018-03-12] MEDS ORDERED: MAG HYDROX/AL HYDROX/SIMETH 30 ML UNIT-DOSE CUP PO PRN (18:50)
--- NOTE | 2018-03-12 22:42 | PN ---
Progress Note, Physician History of Present Illness: No new complaints - Current Medication List Current Medications: Active Medications Al Hydroxide/Mg Hydroxide (Mylanta Oral Suspension -) 30 ml PO Q6H PRN PRN Reason: INDIGESTION Last Admin: 03/12/18 19:06 Dose: 30 ml Aspirin (Asa -) 81 mg PO DAILY [facility] Last Admin: 03/12/18 09:52 Dose: 81 mg Atorvastatin Calcium (Lipitor -) 20 mg PO HS [facility] Last Admin: 03/11/18 22:22 Dose: 20 mg Colchicine (Colcrys -) 0.6 mg PO DAILY [facility] Last Admin: 03/12/18 09:52 Dose: 0.6 mg Heparin Sodium (Porcine) (Heparin -) 5,000 unit SQ BID [facility] Last Admin: 03/12/18 09:52 Dose: 5,000 unit Hydrochlorothiazide (Hctz -) 25 mg PO DAILY [facility] Last Admin: 03/12/18 09:52 Dose: 25 mg Vancomycin HCl (Vancomycin (Pre-Docked)) 1,000 mg in 250 mls @ 166.667 mls/hr IVPB DAILY@1500 [facility]; Protocol Last Admin: 03/12/18 15:37 Dose: 166.667 mls/hr Piperacillin Sod/Tazobactam (Sod 3.375 gm/ Dextrose) 50 mls @ 100 mls/hr IVPB Q8H-IV [facility]; Protocol Last Admin: 03/12/18 18:06 Dose: 100 mls/hr Insulin Aspart (Novolog Vial Sliding Scale -) 1 vial SQ ACHS [facility]; Protocol Last Admin: 03/12/18 17:34 Dose: Not Given Metformin HCl (Glucophage -) 500 mg PO DAILY@0700 [facility] Last Admin: 03/12/18 06:09 Dose: 500 mg Oxycodone HCl (Roxicodone -) 5 mg PO Q8H PRN PRN Reason: PAIN LEVEL 6-10 - Objective Vital Signs: Vital Signs Temperature 97.6 F 03/12/18 16:30 Pulse Rate 70 03/12/18 16:30 Respiratory Rate 20 03/12/18 16:30 Blood Pressure 146/88 03/12/18 16:30 O2 Sat by Pulse Oximetry (%) 95 03/12/18 09:00 Neck: Yes: WNL, Supple Cardiovascular: Yes: WNL, Regular Rate and Rhythm Respiratory: Yes: WNL, Regular, CTA Bilaterally Gastrointestinal: Yes: WNL, Normal Bowel Sounds, Soft Labs: CBC, BMP 03/10/18 06:15 03/10/18 06:15 INR, PTT INR 1.17 (0.83-1.09) H 03/06/18 14:43 Problem List - Problems (1) Cellulitis Assessment/Plan: S/P CTR and hardware removal rt radius Cont IV antibxs and change to po as per ID Code(s): L03.90 - CELLULITIS, UNSPECIFIED (2) Diabetes Code(s): E11.9 - TYPE 2 DIABETES MELLITUS WITHOUT COMPLICATIONS (3) HTN (hypertension) Code(s): I10 - ESSENTIAL (PRIMARY) HYPERTENSION Qualifiers: Hypertension type: essential hypertension Qualified Code(s): I10 - Essential (primary) hypertension (4) HLD (hyperlipidemia) Code(s): E78.5 - HYPERLIPIDEMIA, UNSPECIFIED Qualifiers: Hyperlipidemia type: pure hypercholesterolemia Qualified Code(s): E78.00 - Pure hypercholesterolemia, unspecified; E78.0 - Pure hypercholesterolemia (5) Hepatitis C, chronic Code(s): B18.2 - CHRONIC VIRAL HEPATITIS C Qualifiers: Hepatic coma status: without hepatic coma Qualified Code(s): B18.2 - Chronic viral hepatitis C
[2018-03-12] MEDS: ATORVASTATIN CA 20 MG TABLET (FP) PO SCH (23:22)
[2018-03-13] MEDS ORDERED: PIPERACILLIN/TAZOBACTAM 3.375 GM VIAL IVPB ONE ×3 (00:53→17:09)
[2018-03-13] MEDS ORDERED: DEXTROSE 5%-WATER - 50 ML IVPB ONE ×3 (00:53→17:09)
[2018-03-13] MEDS: PIPERACILLIN/TAZOB 3.375 GM 3.375 GM in DEXTROSE 5%-WATER - 50 ML IVPB SCH ×3 (01:14→17:19)
[2018-03-13] MEDS ORDERED: INSULIN (NOVOLOG) ASPART 100 UNITS/ML 10ML VIAL ONE (05:41)
[2018-03-13] MEDS: INSULIN SLIDING SCALE (NOVOLOG) 1 VIAL SQ SCH ×4 (05:59→21:16)
[2018-03-13] MEDS: metFORMIN HCL 500 MG TABLET (FP) PO SCH (06:00)
[2018-03-13 07:46] LABS: BASO % 0.7 % (0-2.0); EOS % 3.7 % (0-4.5); HEMATOCRIT 39.3 % (35.4-49); MCH 31.4 pg (25.7-33.7); MCHC 33.1 g/dl (32.0-35.9); MEAN CELL VOLUME 94.8 fl (80-96); MEAN PLT VOLUME 8.5 fl (7.5-11.1); MONO % 9.1 % (3.8-10.2); NEUT % 70.5 % (42.8-82.8); PLATELET COUNT 240 K/MM3 (134-434); RBC 4.15 M/mm3 (4.00-5.60); RDW 14.5 % (11.9-15.9); WHITE BLOOD COUNT 11.2 K/mm3 (4.0-10.0)
[2018-03-13 08:41] LABS: ALBUMIN 2.9 g/dl (3.4-5.0); ALK PHOS 49 U/L (45-117); ANION GAP 12 MMOL/L (8-16); BILIRUBIN,TOTAL 0.6 mg/dL (0.2-1); BLOOD UREA NITROGEN 45 mg/dL (7-18); CALCIUM 8.2 mg/dL (8.5-10.1); CHLORIDE 103 mmol/L (98-107); CO2 24 mmol/L (21-32); CREATININE 6.2 mg/dL (0.55-1.3); GLUCOSE,RANDOM 88 mg/dL (74-106); POTASSIUM 3.8 mmol/L (3.5-5.1); SGOT/AST 31 U/L (15-37); SGPT/ALT 26 U/L (13-61); SODIUM 139 mmol/L (136-145); TOT PROT 6.5 g/dl (6.4-8.2)
[2018-03-13] MEDS: HEPARIN NA (PORCINE) 5,000 UNITS/ML 1ML VIAL SQ SCH ×2 (09:02→21:14)
[2018-03-13] MEDS: ASPIRIN 81 MG CHEWABLE TABLETS PO SCH (09:02)
[2018-03-13] MEDS: COLCHICINE 0.6 MG TABLET (FP) PO SCH (09:02)
[2018-03-13] MEDS: HYDROCHLOROTHIAZIDE 25 MG TABLET (FP) PO SCH (09:02)
--- NOTE | 2018-03-13 12:49 | PN ---
Progress Note, Physician - Current Medication List Current Medications: Active Medications Al Hydroxide/Mg Hydroxide (Mylanta Oral Suspension -) 30 ml PO Q6H PRN PRN Reason: INDIGESTION Last Admin: 03/12/18 19:06 Dose: 30 ml Aspirin (Asa -) 81 mg PO DAILY [facility] Last Admin: 03/13/18 09:02 Dose: 81 mg Atorvastatin Calcium (Lipitor -) 20 mg PO HS [facility] Last Admin: 03/12/18 23:22 Dose: 20 mg Colchicine (Colcrys -) 0.6 mg PO DAILY [facility] Last Admin: 03/13/18 09:02 Dose: 0.6 mg Heparin Sodium (Porcine) (Heparin -) 5,000 unit SQ BID [facility] Last Admin: 03/13/18 09:02 Dose: 5,000 unit Hydrochlorothiazide (Hctz -) 25 mg PO DAILY [facility] Last Admin: 03/13/18 09:02 Dose: 25 mg Vancomycin HCl (Vancomycin (Pre-Docked)) 1,000 mg in 250 mls @ 166.667 mls/hr IVPB DAILY@1500 [facility]; Protocol Last Admin: 03/12/18 15:37 Dose: 166.667 mls/hr Piperacillin Sod/Tazobactam (Sod 3.375 gm/ Dextrose) 50 mls @ 100 mls/hr IVPB Q8H-IV [facility]; Protocol Last Admin: 03/13/18 09:06 Dose: 100 mls/hr Insulin Aspart (Novolog Vial Sliding Scale -) 1 vial SQ ACHS [facility]; Protocol Last Admin: 03/13/18 11:24 Dose: Not Given Metformin HCl (Glucophage -) 500 mg PO DAILY@0700 [facility] Last Admin: 03/13/18 06:00 Dose: 500 mg Oxycodone HCl (Roxicodone -) 5 mg PO Q8H PRN PRN Reason: PAIN LEVEL 6-10 - Objective Vital Signs: Vital Signs Temperature 97.9 F 03/13/18 06:14 Pulse Rate 68 03/13/18 06:14 Respiratory Rate 20 03/13/18 06:14 Blood Pressure 124/83 03/13/18 06:14 O2 Sat by Pulse Oximetry (%) 97 03/13/18 09:00 Labs: CBC, BMP 03/13/18 06:00 03/13/18 06:00 INR, PTT INR 1.17 (0.83-1.09) H 03/06/18 14:43
[2018-03-13] MEDS: VANCOMYCIN 1 GRAM (PRE-DOCKED) 1,000 MG/250 ML BAG IVPB SCH (14:17)
--- NOTE | 2018-03-13 16:53 | PN ---
Progress Note, Physician Chief Complaint: right upper extremity distal edema History of Present Illness: 77 yo male PMH NIDDM, HTN, HLD, gout, HCV (treated; past IVDU) admitted for right wrist/hand pain/swelling x2 days. stable post operatively - Current Medication List Current Medications: Active Medications Al Hydroxide/Mg Hydroxide (Mylanta Oral Suspension -) 30 ml PO Q6H PRN PRN Reason: INDIGESTION Last Admin: 03/12/18 19:06 Dose: 30 ml Aspirin (Asa -) 81 mg PO DAILY [facility] Last Admin: 03/13/18 09:02 Dose: 81 mg Atorvastatin Calcium (Lipitor -) 20 mg PO HS [facility] Last Admin: 03/12/18 23:22 Dose: 20 mg Colchicine (Colcrys -) 0.6 mg PO DAILY [facility] Last Admin: 03/13/18 09:02 Dose: 0.6 mg Heparin Sodium (Porcine) (Heparin -) 5,000 unit SQ BID [facility] Last Admin: 03/13/18 09:02 Dose: 5,000 unit Hydrochlorothiazide (Hctz -) 25 mg PO DAILY [facility] Last Admin: 03/13/18 09:02 Dose: 25 mg Vancomycin HCl (Vancomycin (Pre-Docked)) 1,000 mg in 250 mls @ 166.667 mls/hr IVPB DAILY@1500 [facility]; Protocol Last Admin: 03/13/18 14:17 Dose: 166.667 mls/hr Piperacillin Sod/Tazobactam (Sod 3.375 gm/ Dextrose) 50 mls @ 100 mls/hr IVPB Q8H-IV [facility]; Protocol Last Admin: 03/13/18 09:06 Dose: 100 mls/hr Insulin Aspart (Novolog Vial Sliding Scale -) 1 vial SQ ACHS [facility]; Protocol Last Admin: 03/13/18 11:24 Dose: Not Given Metformin HCl (Glucophage -) 500 mg PO DAILY@0700 [facility] Last Admin: 03/13/18 06:00 Dose: 500 mg Oxycodone HCl (Roxicodone -) 5 mg PO Q8H PRN PRN Reason: PAIN LEVEL 6-10 - Objective Vital Signs: Vital Signs Temperature 97.5 F L 03/13/18 14:17 Pulse Rate 74 03/13/18 14:17 Respiratory Rate 18 03/13/18 14:17 Blood Pressure 135/78 03/13/18 14:17 O2 Sat by Pulse Oximetry (%) 97 03/13/18 09:00 Vital Signs Period Temp Pulse Resp BP Sys/Holloway Pulse Ox Last 24 Hr 97.5 F-98.0 F 68-74 18-20 124-141/78-87 97-97 Constitutional: Yes: Well Nourished, No Distress, Calm, Obese Eyes: Yes: Conjunctiva Clear, EOM Intact HENT: Yes: Atraumatic, Normocephalic Neck: Yes: Supple, Trachea Midline Cardiovascular: Yes: Regular Rate and Rhythm, S1, S2. No: Murmur Respiratory: Yes: Regular, CTA Bilaterally Gastrointestinal: Yes: Normal Bowel Sounds, Soft, Abdomen, Obese. No: Tenderness ...Rectal Exam: Yes: Deferred Genitourinary: No: CVA Tenderness - Left, CVA Tenderness - Right Musculoskeletal: No: Muscle Pain, Muscle Weakness Extremities: No: Cool, Cyanosis Edema: Yes Edema: RUE: Trace Peripheral Pulses WNL: Yes Peripheral Pulses: Left Radial: 2+, Right Radial: 2+, Left Doralis Pedis: 2+, Right Dorsalis Pedis: 2+, Left Femoral: 2+, Right Femoral: 2+ Integumentary: No: Jaundice, Skin Tear Wound/Incision: Yes: Clean/Dry, Well Approximated, Sutures Intact, Dressing Dry and Intact Neurological: Yes: Alert, Oriented Psychiatric: Yes: Alert, Oriented Labs: CBC, BMP 03/13/18 06:00 03/13/18 06:00 INR, PTT INR 1.17 (0.83-1.09) H 03/06/18 14:43 Problem List - Problems (1) Cellulitis of hand, right Assessment/Plan: right hand acute swelling distally in the forearm hand and all fingers. the differential includes a gout flare versus infectious process adjacent to forearm hardware. POD#3 s/p right CTR and removal of hardware radius Continue IV antibiotics IV fluid hydration Remove dressing tomorrow elevation or RUE will follow Discharge at discretion of primary Code(s): L03.113 - CELLULITIS OF RIGHT UPPER LIMB (2) HLD (hyperlipidemia) Code(s): E78.5 - HYPERLIPIDEMIA, UNSPECIFIED Qualifiers: Hyperlipidemia type: pure hypercholesterolemia Qualified Code(s): E78.00 - Pure hypercholesterolemia, unspecified; E78.0 - Pure hypercholesterolemia (3) HTN (hypertension) Code(s): I10 - ESSENTIAL (PRIMARY) HYPERTENSION Qualifiers: Hypertension type: essential hypertension Qualified Code(s): I10 - Essential (primary) hypertension (4) Hepatitis C, chronic Code(s): B18.2 - CHRONIC VIRAL HEPATITIS C Qualifiers: Hepatic coma status: without hepatic coma Qualified Code(s): B18.2 - Chronic viral hepatitis C
[2018-03-13] MEDS: ATORVASTATIN CA 20 MG TABLET (FP) PO SCH (21:14)
[2018-03-13] MEDS ORDERED: PT OWN MED DRAWER 7, Y5N ONE (21:50)
--- NOTE | 2018-03-13 23:24 | PN ---
Progress Note, Physician History of Present Illness: No new complaints - Current Medication List Current Medications: Active Medications Al Hydroxide/Mg Hydroxide (Mylanta Oral Suspension -) 30 ml PO Q6H PRN PRN Reason: INDIGESTION Last Admin: 03/12/18 19:06 Dose: 30 ml Aspirin (Asa -) 81 mg PO DAILY [facility] Last Admin: 03/13/18 09:02 Dose: 81 mg Atorvastatin Calcium (Lipitor -) 20 mg PO HS [facility] Last Admin: 03/13/18 21:14 Dose: 20 mg Colchicine (Colcrys -) 0.6 mg PO DAILY [facility] Last Admin: 03/13/18 09:02 Dose: 0.6 mg Heparin Sodium (Porcine) (Heparin -) 5,000 unit SQ BID [facility] Last Admin: 03/13/18 21:14 Dose: 5,000 unit Hydrochlorothiazide (Hctz -) 25 mg PO DAILY [facility] Last Admin: 03/13/18 09:02 Dose: 25 mg Vancomycin HCl (Vancomycin (Pre-Docked)) 1,000 mg in 250 mls @ 166.667 mls/hr IVPB DAILY@1500 [facility]; Protocol Last Admin: 03/13/18 14:17 Dose: 166.667 mls/hr Piperacillin Sod/Tazobactam (Sod 3.375 gm/ Dextrose) 50 mls @ 100 mls/hr IVPB Q8H-IV [facility]; Protocol Last Admin: 03/13/18 17:19 Dose: 100 mls/hr Insulin Aspart (Novolog Vial Sliding Scale -) 1 vial SQ ACHS [facility]; Protocol Last Admin: 03/13/18 21:16 Dose: Not Given Metformin HCl (Glucophage -) 500 mg PO DAILY@0700 [facility] Last Admin: 03/13/18 06:00 Dose: 500 mg Oxycodone HCl (Roxicodone -) 5 mg PO Q8H PRN PRN Reason: PAIN LEVEL 6-10 - Objective Vital Signs: Vital Signs Temperature 97.5 F L 03/13/18 14:17 Pulse Rate 74 03/13/18 14:17 Respiratory Rate 18 03/13/18 14:17 Blood Pressure 135/78 03/13/18 14:17 O2 Sat by Pulse Oximetry (%) 97 03/13/18 09:00 Neck: Yes: WNL, Supple Cardiovascular: Yes: WNL, Regular Rate and Rhythm Respiratory: Yes: WNL, Regular, CTA Bilaterally Gastrointestinal: Yes: WNL, Normal Bowel Sounds, Soft Extremities: Yes: Other (Rt hand w/ decreased swelling/erythema) Labs: CBC, BMP 03/13/18 06:00 03/13/18 06:00 INR, PTT INR 1.17 (0.83-1.09) H 03/06/18 14:43 Problem List - Problems (1) Cellulitis Assessment/Plan: S/P CTR and hardware removal rt radius Cont IV antibxs and change to po as per ID Code(s): L03.90 - CELLULITIS, UNSPECIFIED (2) Diabetes Assessment/Plan: Cont sliding scale w/ coverage Code(s): E11.9 - TYPE 2 DIABETES MELLITUS WITHOUT COMPLICATIONS (3) HTN (hypertension) Assessment/Plan: BP stable Code(s): I10 - ESSENTIAL (PRIMARY) HYPERTENSION Qualifiers: Hypertension type: essential hypertension Qualified Code(s): I10 - Essential (primary) hypertension (4) HLD (hyperlipidemia) Assessment/Plan: Cont lipitor Code(s): E78.5 - HYPERLIPIDEMIA, UNSPECIFIED Qualifiers: Hyperlipidemia type: pure hypercholesterolemia Qualified Code(s): E78.00 - Pure hypercholesterolemia, unspecified; E78.0 - Pure hypercholesterolemia (5) Hepatitis C, chronic Code(s): B18.2 - CHRONIC VIRAL HEPATITIS C Qualifiers: Hepatic coma status: without hepatic coma Qualified Code(s): B18.2 - Chronic viral hepatitis C
[2018-03-14] MEDS ORDERED: PIPERACILLIN/TAZOBACTAM 3.375 GM VIAL IVPB ONE ×2 (02:20→09:43)
[2018-03-14] MEDS ORDERED: DEXTROSE 5%-WATER - 50 ML IVPB ONE ×2 (02:21→09:43)
[2018-03-14] MEDS: PIPERACILLIN/TAZOB 3.375 GM 3.375 GM in DEXTROSE 5%-WATER - 50 ML IVPB SCH ×2 (02:32→10:07)
[2018-03-14] MEDS: metFORMIN HCL 500 MG TABLET (FP) PO SCH (06:05)
[2018-03-14] MEDS: INSULIN SLIDING SCALE (NOVOLOG) 1 VIAL SQ SCH ×4 (06:08→21:15)
[2018-03-14] MEDS: HYDROCHLOROTHIAZIDE 25 MG TABLET (FP) PO SCH (10:07)
[2018-03-14] MEDS: HEPARIN NA (PORCINE) 5,000 UNITS/ML 1ML VIAL SQ SCH ×2 (10:07→21:13)
[2018-03-14] MEDS: COLCHICINE 0.6 MG TABLET (FP) PO SCH (10:07)
[2018-03-14] MEDS: ASPIRIN 81 MG CHEWABLE TABLETS PO SCH (10:07)
--- NOTE | 2018-03-14 12:30 | PN ---
Progress Note, Physician History of Present Illness: patient stable no new issues - Current Medication List Current Medications: Active Medications Al Hydroxide/Mg Hydroxide (Mylanta Oral Suspension -) 30 ml PO Q6H PRN PRN Reason: INDIGESTION Last Admin: 03/12/18 19:06 Dose: 30 ml Aspirin (Asa -) 81 mg PO DAILY [facility] Last Admin: 03/14/18 10:07 Dose: 81 mg Atorvastatin Calcium (Lipitor -) 20 mg PO HS [facility] Last Admin: 03/13/18 21:14 Dose: 20 mg Colchicine (Colcrys -) 0.6 mg PO DAILY [facility] Last Admin: 03/14/18 10:07 Dose: 0.6 mg Heparin Sodium (Porcine) (Heparin -) 5,000 unit SQ BID [facility] Last Admin: 03/14/18 10:07 Dose: 5,000 unit Hydrochlorothiazide (Hctz -) 25 mg PO DAILY [facility] Last Admin: 03/14/18 10:07 Dose: 25 mg Vancomycin HCl (Vancomycin (Pre-Docked)) 1,000 mg in 250 mls @ 166.667 mls/hr IVPB DAILY@1500 [facility]; Protocol Last Admin: 03/13/18 14:17 Dose: 166.667 mls/hr Piperacillin Sod/Tazobactam (Sod 3.375 gm/ Dextrose) 50 mls @ 100 mls/hr IVPB Q8H-IV [facility]; Protocol Last Admin: 03/14/18 10:07 Dose: 100 mls/hr Insulin Aspart (Novolog Vial Sliding Scale -) 1 vial SQ ACHS [facility]; Protocol Last Admin: 03/14/18 11:32 Dose: Not Given Metformin HCl (Glucophage -) 500 mg PO DAILY@0700 [facility] Last Admin: 03/14/18 06:05 Dose: 500 mg Oxycodone HCl (Roxicodone -) 5 mg PO Q8H PRN PRN Reason: PAIN LEVEL 6-10 Last Admin: 03/13/18 23:59 Dose: 5 mg - Objective Vital Signs: Vital Signs Temperature 98.2 F 03/14/18 10:05 Pulse Rate 73 03/14/18 10:05 Respiratory Rate 18 03/14/18 10:05 Blood Pressure 145/75 03/14/18 10:05 O2 Sat by Pulse Oximetry (%) 96 03/14/18 10:05 Constitutional: Yes: No Distress, Calm Respiratory: Yes: Regular, CTA Bilaterally Gastrointestinal: Yes: Normal Bowel Sounds, Soft Musculoskeletal: Yes: WNL Extremities: Yes: Other Wound/Incision: Yes: Dressing Dry and Intact Neurological: Yes: Alert, Oriented Psychiatric: Yes: Alert, Oriented Labs: CBC, BMP 03/13/18 06:00 03/13/18 06:00 INR, PTT INR 1.17 (0.83-1.09) H 03/06/18 14:43 Assessment/Plan Problem List - Problems (1) Cellulitis Code(s): L03.90 - CELLULITIS, UNSPECIFIED (2) Lactic acidosis Code(s): E87.2 - ACIDOSIS (3) Leukocytosis Code(s): D72.829 - ELEVATED WHITE BLOOD CELL COUNT, UNSPECIFIED (4) Cellulitis of hand, right Code(s): L03.113 - CELLULITIS OF RIGHT UPPER LIMB (5) HLD (hyperlipidemia) Code(s): E78.5 - HYPERLIPIDEMIA, UNSPECIFIED Qualifiers: Hyperlipidemia type: pure hypercholesterolemia Qualified Code(s): E78.00 - Pure hypercholesterolemia, unspecified; E78.0 - Pure hypercholesterolemia (6) HTN (hypertension) Code(s): I10 - ESSENTIAL (PRIMARY) HYPERTENSION Qualifiers: Hypertension type: essential hypertension Qualified Code(s): I10 - Essential (primary) hypertension (7) Hepatitis C, chronic Code(s): B18.2 - CHRONIC VIRAL HEPATITIS C Qualifiers: Hepatic coma status: without hepatic coma Qualified Code(s): B18.2 - Chronic viral hepatitis C Assessment/Plan Rt hand/wrist edema- cellulitis post op plan will change to oral abx rest continue current mgmt
[2018-03-14] MEDS: AMOX TR/POT CLAV 500MG/125MG TABLETS (FP) PO SCH (17:54)
[2018-03-14] MEDS: ATORVASTATIN CA 20 MG TABLET (FP) PO SCH (21:13)
--- NOTE | 2018-03-14 23:12 | PN ---
Progress Note, Physician - Current Medication List Current Medications: Active Medications Al Hydroxide/Mg Hydroxide (Mylanta Oral Suspension -) 30 ml PO Q6H PRN PRN Reason: INDIGESTION Last Admin: 03/12/18 19:06 Dose: 30 ml Amoxicillin/Clavulanate Potassium (Augmentin - 500mg Tablet) 1 tab PO BID@0800, 1730 [facility] Last Admin: 03/14/18 17:54 Dose: 1 tab Aspirin (Asa -) 81 mg PO DAILY [facility] Last Admin: 03/14/18 10:07 Dose: 81 mg Atorvastatin Calcium (Lipitor -) 20 mg PO HS [facility] Last Admin: 03/14/18 21:13 Dose: 20 mg Colchicine (Colcrys -) 0.6 mg PO DAILY [facility] Last Admin: 03/14/18 10:07 Dose: 0.6 mg Heparin Sodium (Porcine) (Heparin -) 5,000 unit SQ BID [facility] Last Admin: 03/14/18 21:13 Dose: 5,000 unit Hydrochlorothiazide (Hctz -) 25 mg PO DAILY [facility] Last Admin: 03/14/18 10:07 Dose: 25 mg Insulin Aspart (Novolog Vial Sliding Scale -) 1 vial SQ [facility]; Protocol Last Admin: 03/14/18 21:15 Dose: Not Given Metformin HCl (Glucophage -) 500 mg PO DAILY@0700 [facility] Last Admin: 03/14/18 06:05 Dose: 500 mg Oxycodone HCl (Roxicodone -) 5 mg PO Q8H PRN PRN Reason: PAIN LEVEL 6-10 Last Admin: 03/13/18 23:59 Dose: 5 mg - Objective Vital Signs: Vital Signs Temperature 97.6 F 03/14/18 20:02 Pulse Rate 76 03/14/18 20:02 Respiratory Rate 18 03/14/18 20:06 Blood Pressure 151/93 03/14/18 20:02 O2 Sat by Pulse Oximetry (%) 98 03/14/18 20:06 Labs: CBC, BMP 03/13/18 06:00 03/13/18 06:00 INR, PTT INR 1.17 (0.83-1.09) H 03/06/18 14:43 Problem List - Problems (1) Cellulitis Code(s): L03.90 - CELLULITIS, UNSPECIFIED (2) Diabetes Code(s): E11.9 - TYPE 2 DIABETES MELLITUS WITHOUT COMPLICATIONS (3) HTN (hypertension) Code(s): I10 - ESSENTIAL (PRIMARY) HYPERTENSION Qualifiers: Hypertension type: essential hypertension Qualified Code(s): I10 - Essential (primary) hypertension (4) HLD (hyperlipidemia) Code(s): E78.5 - HYPERLIPIDEMIA, UNSPECIFIED Qualifiers: Hyperlipidemia type: pure hypercholesterolemia Qualified Code(s): E78.00 - Pure hypercholesterolemia, unspecified; E78.0 - Pure hypercholesterolemia (5) Hepatitis C, chronic Code(s): B18.2 - CHRONIC VIRAL HEPATITIS C Qualifiers: Hepatic coma status: without hepatic coma Qualified Code(s): B18.2 - Chronic viral hepatitis C
[2018-03-15] MEDS: INSULIN SLIDING SCALE (NOVOLOG) 1 VIAL SQ SCH ×3 (06:17→17:13)
[2018-03-15] MEDS: metFORMIN HCL 500 MG TABLET (FP) PO SCH (06:18)
[2018-03-15] MEDS: COLCHICINE 0.6 MG TABLET (FP) PO SCH (09:07)
[2018-03-15] MEDS: HYDROCHLOROTHIAZIDE 25 MG TABLET (FP) PO SCH (09:07)
[2018-03-15] MEDS: AMOX TR/POT CLAV 500MG/125MG TABLETS (FP) PO SCH ×2 (09:07→17:22)
[2018-03-15] MEDS: HEPARIN NA (PORCINE) 5,000 UNITS/ML 1ML VIAL SQ SCH (09:08)
[2018-03-15] MEDS: ASPIRIN 81 MG CHEWABLE TABLETS PO SCH (09:08)
[2018-03-15] MEDS ORDERED: INSULIN (NOVOLOG) ASPART 100 UNITS/ML 10ML VIAL ONE (11:45)
--- NOTE | 2018-03-15 13:50 | PN ---
Progress Note, Physician - Current Medication List Current Medications: Active Medications Al Hydroxide/Mg Hydroxide (Mylanta Oral Suspension -) 30 ml PO Q6H PRN PRN Reason: INDIGESTION Last Admin: 03/12/18 19:06 Dose: 30 ml Amoxicillin/Clavulanate Potassium (Augmentin - 500mg Tablet) 1 tab PO BID@0800, 1730 [facility] Last Admin: 03/15/18 09:07 Dose: 1 tab Aspirin (Asa -) 81 mg PO DAILY [facility] Last Admin: 03/15/18 09:08 Dose: 81 mg Atorvastatin Calcium (Lipitor -) 20 mg PO HS [facility] Last Admin: 03/14/18 21:13 Dose: 20 mg Colchicine (Colcrys -) 0.6 mg PO DAILY [facility] Last Admin: 03/15/18 09:07 Dose: 0.6 mg Heparin Sodium (Porcine) (Heparin -) 5,000 unit SQ BID [facility] Last Admin: 03/15/18 09:08 Dose: 5,000 unit Hydrochlorothiazide (Hctz -) 25 mg PO DAILY [facility] Last Admin: 03/15/18 09:07 Dose: 25 mg Insulin Aspart (Novolog Vial Sliding Scale -) 1 vial SQ [facility]; Protocol Last Admin: 03/15/18 12:02 Dose: Not Given Metformin HCl (Glucophage -) 500 mg PO DAILY@0700 [facility] Last Admin: 03/15/18 06:18 Dose: 500 mg - Objective Vital Signs: Vital Signs Temperature 98.7 F 03/15/18 10:00 Pulse Rate 83 03/15/18 10:00 Respiratory Rate 20 03/15/18 10:00 Blood Pressure 144/85 03/15/18 10:00 O2 Sat by Pulse Oximetry (%) 98 03/15/18 09:00 Labs: CBC, BMP 03/13/18 06:00 03/13/18 06:00 INR, PTT INR 1.17 (0.83-1.09) H 03/06/18 14:43
[2018-03-15 17:16] VITALS: BP 151/95; PULSE 76; TEMP 97.9
== END 2018-03-15 21:46 | disposition home or self-care (01) | DRG 506 ==
LOC: JER 13:11 → JERBED 16:32 → J8W 20:15
PROVIDERS: ADMIT Internal Medicine; ATTEND Internal Medicine
PROC: 0RPN04Z Removal of Internal Fixation Device from Right Wrist Joint, Open Approach (ICD-10-PCS; principal; 2018-03-10 09:00)
PROC: 01N50ZZ Release Median Nerve, Open Approach (ICD-10-PCS; 2018-03-10 09:00)
DX: T84.612A Infection and inflammatory reaction due to internal fixation device of right radius, initial encounter (principal); E87.2 Acidosis; L03.113 Cellulitis of right upper limb; E11.9 Type 2 diabetes mellitus without complications; I10 Essential (primary) hypertension; E78.5 Hyperlipidemia, unspecified; M10.9 Gout, unspecified; Z79.84 Long term (current) use of oral hypoglycemic drugs; E66.9 Obesity, unspecified; B18.2 Chronic viral hepatitis C; Y83.8 Other surgical procedures as the cause of abnormal reaction of the patient, or of later complication, without mention of misadventure at the time of the procedure; Z79.4 Long term (current) use of insulin
CPT/HCPCS: 36415; 71046-TC-FY; 73110-TC-RT-FY; 73130-TC-RT-FY; 73202-TC-RT; 76000-TC-FY; 80048; 80053; 80307; 82962; 83605; 84550; 85025; 85610; 85651; 85730; 86140; 86850; 86900; 86901; 87040; 87070; 87205; 88300-TC; 93005; 93010; 94760; 99284-25; G0480; J1644; J7030

== ENCOUNTER 2018-07-09 14:17 | Inpatient (IN) | payer MEDICARE, OTHER ==
--- NOTE | 2018-07-09 14:33 | PDOC ---
Rapid Medical Evaluation Chief Complaint: CVA/TIA Time Seen by Provider: 07/09/18 14:33 Medical Evaluation: Allergies Allergy/AdvReac Type Severity Reaction Status Date / Time No Known Allergies Allergy Verified 03/06/18 13:17 07/09/18 14:35 Pt c/o: tingling and "pins and needles " to left side since saturday, gait imbalance, no headache, fever, Pt on brief exam: vss Pt ordered for : labs, ekg, ua, iv, head ct Pt to proceed to the ED Discharge Disposition - Diagnosis Tingling - Discharge Dispostion Condition at time of disposition: Stable - Referrals - Patient Instructions - Post Discharge Activity
[2018-07-09 15:04] LABS: BASO % 1.5 % (0-2.0); EOS % 4.4 % (0-4.5); HEMATOCRIT 41.7 % (35.4-49); HEMOGLOBIN 14.4 GM/dL (11.7-16.9); LYMPH % 29.3 % (8-40); MCH 32.4 pg (25.7-33.7); MCHC 34.5 g/dl (32.0-35.9); MEAN CELL VOLUME 93.8 fl (80-96); MEAN PLT VOLUME 8.2 fl (7.5-11.1); MONO % 9.6 % (3.8-10.2); NEUT % 55.2 % (42.8-82.8); PLATELET COUNT 272 K/MM3 (134-434); RBC 4.44 M/mm3 (4.00-5.60); RDW 14.1 % (11.9-15.9); WHITE BLOOD COUNT 8.6 K/mm3 (4.0-10.0)
[2018-07-09 15:25] LABS: ALBUMIN 3.8 g/dl (3.4-5.0); ALK PHOS 91 U/L (45-117); ANION GAP 7 MMOL/L (8-16); BILIRUBIN,TOTAL 0.3 mg/dL (0.2-1); BLOOD UREA NITROGEN 30 mg/dL (7-18); CALCIUM 8.9 mg/dL (8.5-10.1); CHLORIDE 106 mmol/L (98-107); CO2 24 mmol/L (21-32); CREATININE 1.2 mg/dL (0.55-1.3); GLUCOSE,RANDOM 110 mg/dL (74-106); POTASSIUM 3.7 mmol/L (3.5-5.1); SGOT/AST 22 U/L (15-37); SGPT/ALT 20 U/L (13-61); SODIUM 138 mmol/L (136-145); TOT PROT 7.5 g/dl (6.4-8.2)
--- NOTE | 2018-07-09 16:15 | PDOC ---
History of Present Illness - General Chief Complaint: Weakness Stated Complaint: LT NUMBNESS Time Seen by Provider: 07/09/18 14:33 History Source: Patient - History of Present Illness Initial Comments: 07/09/18 21:30 The patient is a 78 year with a PMH of HTN, HLD, gout who presents to our ED c/ o a 2 day h/o parathesias. Patient states he woke up at 2 a.m. to urinate and felt weak, off balance and parathesias in his L upper and lower extremities. Balance and weakness resolved by morning, however parathesias persisted prompting his visit to the ED today. Patient also notes increase TRAN when walking uphill. Denies any associated chest pain, lightheadedness, palpitations , syncope. NKDA Past History - Past Medical History Allergies/Adverse Reactions: Allergies Allergy/AdvReac Type Severity Reaction Status Date / Time No Known Allergies Allergy Verified 03/06/18 13:17 Home Medications: Ambulatory Orders Atorvastatin Ca [Lipitor] 20 mg PO HS 05/09/16 Hydrochlorothiazide [Hctz -] 25 mg PO DAILY 05/09/16 Acetaminophen [Tylenol .Regular Strength -] 650 mg PO Q6H PRN #0 tablet Aspirin 81 mg PO DAILY 03/06/18 Colchicine [Colcrys -] 0.6 mg PO BID 03/06/18 Anemia: No COPD: No HTN: Yes Hypercholesterolemia: Yes - Surgical History Appendectomy: Yes Orthopedic Surgery: Yes (compound FX 60 years ago, plate in Right arm) - Immunization History Immunization Up to Date: No - Suicide/Smoking/Psychosocial Hx Smoking History: Never smoked Have you smoked in the past 12 months: No If you are a former smoker, when did you quit?: 40YRS AGO Information on smoking cessation initiated: No Hx Alcohol Use: No Drug/Substance Use Hx: No Substance Use Type: None Hx Substance Use Treatment: No Review of Systems - Review of Systems Constitutional: Yes: Weakness. No: Chills, Fever HEENTM: No: Recent change in vision Cardiac (ROS): No: Lightheadedness, Palpitations, Syncope ABD/GI: No: Constipated, Diarrhea, Nausea, Vomiting *Physical Exam - Vital Signs Last Vital Signs Temp Pulse Resp BP Pulse Ox 97.6 F 73 18 137/81 95 07/09/18 14:31 07/09/18 14:31 07/09/18 14:31 07/09/18 14:31 07/09/18 14:31 - Physical Exam General Appearance: Yes: Nourished, Appropriately Dressed HEENT: positive: EOMI, Hearing Grossly Normal Neck: positive: Trachea midline, Supple Respiratory/Chest: positive: Lungs Clear, Normal Breath Sounds Cardiovascular: positive: S1, S2. negative: Edema, JVD Vascular Pulses: Dorsalis-Pedis (R): 2+, Doralis-Pedis (L): 2+ Gastrointestinal/Abdominal: positive: Normal Bowel Sounds, Soft Musculoskeletal: positive: Normal Inspection Extremity: positive: Normal Capillary Refill, Normal Inspection Integumentary: positive: Normal Color, Dry, Warm Neurologic: positive: Other (mildly decreased sensation in LUE) Heart Score/ECG Review - ECG Impressions Comment:: 07/09/18 21:49 EKG shows NSR HR 83, no SHEREEN/STD/TWI - non ischemic EKG ED Treatment Course - LABORATORY CBC & Chemistry Diagram: 07/10/18 05:30 07/10/18 05:30 - ADDITIONAL ORDERS Additional order review: Laboratory Results 07/09/18 14:44 Sodium 138 Potassium 3.7 Chloride 106 Carbon Dioxide 24 Anion Gap 7 L BUN 30 H Creatinine 1.2 Creat Clearance w eGFR 58.86 Random Glucose 110 H Calcium 8.9 Magnesium 2.0 Total Bilirubin 0.3 AST 22 ALT 20 Alkaline Phosphatase 91 Total Protein 7.5 Albumin 3.8 07/09/18 14:46 RBC 4.44 MCV 93.8 MCHC 34.5 RDW 14.1 MPV 8.2 Neutrophils % 55.2 D Lymphocytes % 29.3 D Monocytes % 9.6 Eosinophils % 4.4 Basophils % 1.5 Medical Decision Making - Medical Decision Making 07/09/18 21:48 78 year old male with current parathesias as well as 6 week h/o TRAN and intermittent weakness. VS unremarkable. Mild decreased sensation in LUE. No focal neurologic deficit on exam. Will obtain head CT to r/o CVA/TIA. Also consider cardiac pathology given weakness, TRAN. Likely disposition is admit for neurologic + cardiac evalution. Head CT negative Troponin negative EKG non-ischemic as documented in EKG section of EMR At this time patient improved, however given new onset weakness will admit for cardiac and neurologic evaluation Case d/w Dr. Cullen- admit OBS Tele *DC/Admit/Observation/Transfer Diagnosis at time of Disposition: Tingling - Discharge Dispostion Condition at time of disposition: Stable - Referrals - Patient Instructions - Post Discharge Activity
--- NOTE | 2018-07-09 16:16 | PDOC ---
Attending Attestation - Resident Resident Name: Emma Garcia - ED Attending Attestation I have performed the following: I have examined & evaluated the patient, The case was reviewed & discussed with the resident, I agree w/resident's findings & plan, Exceptions are as noted - Medical Decision Making 07/09/18 16:16 I, Dr. Michelle Charles, DO, attest that this document has been prepared under my direction and personally reviewed by me in its entirety. I further attest, that it accurately reflects all work, treatment, procedures and medical decision -making performed by me. 07/09/18 18:36 a/p: 78yo male with L arm and L leg paresthesias since Saturday night -woke up feeling off balance with paresthesias. off balance and weakness went away by morning but paresthesias still present -denies young, cp -no abd pain, no n/v/d - c/o sob when walking uphill -decreased sensation to L arm and L leg on exam, but outside TPA window and low nihss -will send labs, head ct, ekg -cxr -pt states also had chronic lbp-no changes x months, will obtain xray imaging -will monitor and reassess 07/09/18 18:[address] negative labs reviewed trop negative resident discussed the case with Dr. Cullen who accepts pt to tele obs <Michelle Charles - Last Filed: 07/09/18 18:36> - HPI HPI: 07/09/18 18:46 The patient is a 78 year old male who presents with left arm and left leg paresthesias for the past 3 days. Patient states that 3 days ago he woke up off balance and weak, which resolved on its own but states the paresthesias are persistent. Patient is not complaining of any other symptoms at this time. - Physicial Exam PE: 07/09/18 18:43 ADULT PHYSICAL EXAM Constitutional: Awake, alert, oriented. No acute distress. Head: Normocephalic. Atraumatic Eyes: PERRL. EOMI. Conjunctivae are not pale. ENT: Mucous membranes are moist and intact. Posterior pharynx without exudates or erythema. Uvula midline. Neck: Supple. Full ROM. No lymphadenopathy. Cardiovascular: Regular rate. Regular rhythm. S1, S2 regular. Distal pulses are 2+ and symmetric. Pulmonary/Chest: No evidence of respiratory distress. Clear to auscultation bilaterally No wheezing, rales or rhonchi. Abdominal: (+) Soft, obese. There is no tenderness. No rebound, guarding or rigidity. No organomegaly. No palpable masses. Good bowel sounds. Back: No CVA tenderness. Musculoskeletal: No edema. Radial/pedal pulses are intact and 2+ bilaterally. ( +) Decreased sensation to the left forearm and all the digits of the left hand. (+) Decreased sensation to the left lower extremity, knee to toes. Muscle strength is normal. Heel to knee is normal. Skin: Skin is warm and dry. No petechiae. No purpura. Neurological: Alert and oriented to person, place, and time. Cranial nerves II -XII are grossly intact. Normal speech. Strength is grossly symmetric. No sensory deficits. Psychiatric: Good eye contact. Normal interaction, affect and behavior. <Jenny Sosa - Last Filed: 07/09/18 18:52> Heart Score/ECG Review - ECG Intrepretation Comment:: 07/09/18 18:40 sinus at 83, nl axis, nl interval, no aute st/t wave findings <Michelle Charles - Last Filed: 07/09/18 18:36>
[2018-07-09 18:37] LABS: URINE APPEARANCE CLEAR; URINE BILIRUBIN NEGATIVE (NEGATIVE); URINE COLOR YELLOW; URINE GLUCOSE (UA) NEGATIVE (NEGATIVE); URINE KETONE NEGATIVE (NEGATIVE); URINE LEUK ESTERASE NEGATIVE (NEGATIVE); URINE NITRITE NEGATIVE (NEGATIVE); URINE PROTEIN NEGATIVE (NEGATIVE); URINE UROBILINOGEN 0.2 mg/dL (0.2-1.0)
--- NOTE | 2018-07-09 18:42 | PDOC ---
NIH Stroke Scale - Initial Evaluation Level of consciousness: Alert Ask patient the month and their age: Answers both correctly Ask patient to open & close eyes; make fist and let go: Obeys both correctly Best gaze (horizontal eye movement): Normal Visual field testing: No visual field loss Facial paresis (Show teeth/raise eyebrows/close eyes tight): Normal symmetrical movement Motor Function: Left Arm: Normal Motor Function: Right Arm: Normal (extends arm 90 (or 45) degrees for 10 seconds without drift Motor Function: Left Leg: Normal (extends leg 30 degrees for 5 seconds without drift) Motor Function: Right Leg: Normal (extends leg 30 degrees for 5 seconds without drift) Limb Ataxia: No ataxia Sensory(Use pinprick test arms,legs,trunk,face/side to side): Mild to moderate decrease in sensation Best language (Describe picture, name items, read sentences): No Aphasia Dysarthria (read several words): Normal articulation Extinction and Inattention: No abnormality - Total Score NIH Stroke Scale Score: 1
--- NOTE | 2018-07-09 18:43 | PDOC ---
tPA Exclusion Checklist 0-3hr - Time Elapsed Date last known well: 07/06/18 Time last known well: 11:00 Elaspsed time: 3 Day(s) and 7 Hour(s) and 43 Minutes - Thrombolytic Therapy Candidate Is the patient eligible for Thrombolytic Therapy?: No - Ineligibility reason(s) Reasons No tPA given: Outside of window - delayed arrival
[2018-07-10 06:09] LABS: BASO % 0.8 % (0-2.0); EOS % 5.3 % (0-4.5); HEMATOCRIT 40.7 % (35.4-49); HEMOGLOBIN 13.9 GM/dL (11.7-16.9); LYMPH % 30.9 % (8-40); MCH 32.2 pg (25.7-33.7); MCHC 34.3 g/dl (32.0-35.9); MEAN PLT VOLUME 8.1 fl (7.5-11.1); MONO % 9.4 % (3.8-10.2); NEUT % 53.6 % (42.8-82.8); PLATELET COUNT 255 K/MM3 (134-434); RBC 4.33 M/mm3 (4.00-5.60); RDW 14.1 % (11.9-15.9); WHITE BLOOD COUNT 10.4 K/mm3 (4.0-10.0)
[2018-07-10 06:37] LABS: ALBUMIN 3.7 g/dl (3.4-5.0); ALK PHOS 81 U/L (45-117); ANION GAP 5 MMOL/L (8-16); BILIRUBIN,TOTAL 0.4 mg/dL (0.2-1); BLOOD UREA NITROGEN 29 mg/dL (7-18); CALCIUM 9.1 mg/dL (8.5-10.1); CHLORIDE 104 mmol/L (98-107); CO2 29 mmol/L (21-32); CREATININE 1.3 mg/dL (0.55-1.3); GLUCOSE,RANDOM 95 mg/dL (74-106); SGOT/AST 23 U/L (15-37); SGPT/ALT 21 U/L (13-61); SODIUM 137 mmol/L (136-145); TOT PROT 7.5 g/dl (6.4-8.2)
--- NOTE | 2018-07-10 08:48 | CON.NEURO ---
Consult - Past Medical History Cardio/Vascular: Yes: HTN, Hyperlipdemia Hepatobiliary: Yes: Hepatitis C Rheumatology: Yes: Gout Additional Medical History: obesity - Alcohol/Substance Use Hx Alcohol Use: No - Smoking History Smoking history: Never smoked Have you smoked in the past 12 months: No If you are a former smoker, when did you quit?: 40YRS AGO - Social History History of Recent Travel: No Home Medications - Allergies Allergies/Adverse Reactions: Allergies Allergy/AdvReac Type Severity Reaction Status Date / Time No Known Allergies Allergy Verified 03/06/18 13:17 - Home Medications Home Medications: Ambulatory Orders Atorvastatin Ca [Lipitor] 20 mg PO HS 05/09/16 Hydrochlorothiazide [Hctz -] 25 mg PO DAILY 05/09/16 Acetaminophen [Tylenol .Regular Strength -] 650 mg PO Q6H PRN #0 tablet Aspirin 81 mg PO DAILY 03/06/18 Colchicine [Colcrys -] 0.6 mg PO BID 03/06/18 Physical Exam-Neuro Vital Signs: Vital Signs Temperature 97.8 F 07/10/18 08:03 Pulse Rate 77 07/10/18 08:03 Respiratory Rate 17 07/10/18 08:03 Blood Pressure 109/79 07/10/18 08:03 O2 Sat by Pulse Oximetry (%) 97 07/10/18 08:03 Labs: CBC, BMP 07/10/18 05:30 07/10/18 05:30 Assessment/Plan cc Left sided numbness and tingling x 48 hours HPI 78 year old male history of HTN,HLD, Gout presented to hospital for left arm , face and leg tingling naumbness, 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 He thought it would resolved and when it was getting better he cam [facility]. He denies any difficulty swallowing, motor weakness or speech disturbances now. his ct head is normal. he do take lipitor 20 mg and do not take antiplatelet and he denies any stroke or mi in the past. PMH as above SH,ROS,FH reviewed in chart NKDA Home Medications: Atorvastatin Ca [Lipitor] 20 mg PO HS 05/09/16 Hydrochlorothiazide [Hctz -] 25 mg PO DAILY 05/09/16 Acetaminophen [Tylenol .Regular Strength -] 650 mg PO Q6H PRN #0 tablet Aspirin 81 mg PO DAILY 03/06/18 Colchicine [Colcrys -] 0.6 mg PO BID 03/06/18 NEUROLOGICAL EXAMINATION Alert oriented x 3, speech is normal, no neck stiffness eomi, pupils reactive no face asymmetry moving all extremity sensation is diminished and dysthesia on face, arm and leg ct head is normal carotid ultrasound and mri of brain pending Assessment/Plan Right mca lacunar stroke, nih score is 1 and able to swallow. Patient came outside window for tpa. His bp was not high at admission. Plan:continue aspirin and statin ( dose of lipitor can be increased TO 40 MG ONCE A DAY) dvt prophylaxis, PT Stroke education carotid ultrasound and mri ofbrain Thanking you so much You Patel MD
[2018-07-10] MEDS ORDERED: PT OWN MED DRAWER 7, Y5N ONE (09:32)
[2018-07-10] MEDS: COLCHICINE 0.6 MG TABLET (FP) PO SCH ×2 (10:45→21:15)
[2018-07-10] MEDS: HYDROCHLOROTHIAZIDE 25 MG TABLET (FP) PO SCH (10:45)
[2018-07-10] MEDS: HEPARIN NA (PORCINE) 5,000 UNITS/ML 1ML VIAL SQ SCH ×2 (10:45→21:15)
[2018-07-10] MEDS: ASPIRIN 81 MG CHEWABLE TABLETS PO SCH (10:45)
--- NOTE | 2018-07-10 12:34 | HP ---
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 He actually thinks these symptoms have been present for the last week on and off. He thought it would resolve and when it was not getting better he came to the hospital. Pt had ct scan head done in the ER wc was negative. Pt also complains of fatigue and states that he cannot walk any more without getting tired and SOB. Pt denies any chest pain/ palpitations. - Past Medical History Cardiovascular: Yes: HTN, Hyperlipdemia Hepatobiliary: Yes: Hepatitis C Rheumatology: Yes: Gout - Smoking History Smoking history: Never smoked Have you smoked in the past 12 months: No If you are a former smoker, when did you quit?: 40YRS AGO - Alcohol/Substance Use Hx Alcohol Use: No - Social History History of Recent Travel: No Home Medications - Allergies Allergies/Adverse Reactions: Allergies Allergy/AdvReac Type Severity Reaction Status Date / Time No Known Allergies Allergy Verified 03/06/18 13:17 - Home Medications Home Medications: Ambulatory Orders Atorvastatin Ca [Lipitor] 20 mg PO HS 05/09/16 Hydrochlorothiazide [Hctz -] 25 mg PO DAILY 05/09/16 Acetaminophen [Tylenol .Regular Strength -] 650 mg PO Q6H PRN #0 tablet Aspirin 81 mg PO DAILY 03/06/18 Colchicine [Colcrys -] 0.6 mg PO BID 03/06/18 Family Disease History - Family Disease History Family History: Unremarkable Review of Systems - Review of Systems Constitutional: reports: Weakness HENT: reports: No Symptoms Neck: reports: No Symptoms Cardiovascular: reports: Shortness of Breath Respiratory: reports: SOB Gastrointestinal: reports: No Symptoms Genitourinary: reports: No Symptoms Physical Examination Vital Signs: Vital Signs Temperature 97.8 F 07/10/18 08:03 Pulse Rate 77 07/10/18 08:03 Respiratory Rate 17 07/10/18 08:03 Blood Pressure 109/79 07/10/18 08:03 O2 Sat by Pulse Oximetry (%) 97 07/10/18 08:03 Constitutional: Yes: Well Nourished HENT: Yes: WNL Neck: Yes: WNL, Supple Cardiovascular: Yes: WNL, Regular Rate and Rhythm Respiratory: Yes: WNL, Regular, CTA Bilaterally Gastrointestinal: Yes: WNL, Normal Bowel Sounds, Soft Musculoskeletal: Yes: WNL Extremities: Yes: WNL Edema: No Neurological: Yes: WNL, Alert, Oriented ...Motor Strength: WNL Labs: CBC, BMP 07/10/18 05:30 07/10/18 05:30
--- NOTE | 2018-07-10 15:06 | ECHO ---
Name: DEJA MEJIA Exam:Adult Echocardiogram Study Date: 07/10/2018 10:22 AM Age: 78 yrs Reason For Study: CVA Height: 62 in Weight: 170 lb BSA: 1.8 m2 MMode/2D Measurements & Calculations IVSd: 1.4 cm Ao root diam: 3.4 cm LVIDd: 3.3 cm LA dimension: 2.2 cm LVIDs: 2.4 cm LVPWd: 0.97 cm EDV(Teich): 45.2 ml LVOT diam: 2.0 cm ESV(Teich): 19.9 ml Doppler Measurements & Calculations MV E max john paul: 60.6 cm/sec Ao V2 max: 124.9 cm/sec MV A max john paul: 100.9 cm/sec Ao max P.2 mmHg MV E/A: 0.60 MV dec time: 0.30 sec NAVI(V,D): 3.1 cm2 LV V1 max P.2 mmHg TR max john paul: 251.8 cm/sec LV V1 max: 124.7 cm/sec TR max P.4 mmHg PA V2 max: 104.5 cm/sec Med Peak E' John Paul: 4.3 cm/sec PA max P.4 mmHg Med E/e': 14.1 Lat Peak E' John Paul: 4.7 cm/sec Lat E/e': 13.0 PI Vmax: 190.7 cm/sec Procedure A complete two-dimensional transthoracic echocardiogram was performed (2D, M-mode, Doppler and color flow Doppler). Left Ventricle The left ventricular size, thickness and function are normal. The left ventricular ejection fraction is normal. Ejection Fraction = 60-65%. The left ventricular wall motion is normal. Right Ventricle The right ventricle is normal in size and function. Atria Normal left and right atrial size and function. Mitral Valve There is no mitral regurgitation noted. Tricuspid Valve There is trace tricuspid regurgitation. Right ventricular systolic pressure is normal. Aortic Valve No hemodynamically significant valvular aortic stenosis. Trace aortic regurgitation. Pulmonic Valve Trace pulmonic valvular regurgitation. Great Vessels The aortic root is normal size. Pericardium/Pleura There is no pericardial effusion. Interpretation Summary The left ventricular size, thickness and function are normal The right ventricle is normal in size and function. There is trace tricuspid regurgitation. Trace aortic regurgitation. Trace pulmonic valvular regurgitation. MD Randy Henriquez 07/10/2018 03:05 PM
--- NOTE | 2018-07-10 16:01 | CON.CARD ---
Consult Consult Specialty:: Cardiology Referred by:: Medicine Reason for Consultation:: stroke - History of Present Illness Chief Complaint: stroke History of Present Illness: 78M h/o HTN, HLD, gout p/w left arm, face, leg tingling and numbness for the last two days. No chest pain, palps, dizziness. Still feels the numbness and tingling on L side, unsteady gait. - Past Medical History Cardio/Vascular: Yes: HTN, Hyperlipdemia Hepatobiliary: Yes: Hepatitis C Rheumatology: Yes: Gout Additional Medical History: obesity - Alcohol/Substance Use Hx Alcohol Use: No - Smoking History Smoking history: Never smoked Have you smoked in the past 12 months: No If you are a former smoker, when did you quit?: 40YRS AGO - Social History History of Recent Travel: No Home Medications - Allergies Allergies/Adverse Reactions: Allergies Allergy/AdvReac Type Severity Reaction Status Date / Time No Known Allergies Allergy Verified 03/06/18 13:17 - Home Medications Home Medications: Ambulatory Orders Atorvastatin Ca [Lipitor] 20 mg PO HS 05/09/16 Hydrochlorothiazide [Hctz -] 25 mg PO DAILY 05/09/16 Acetaminophen [Tylenol .Regular Strength -] 650 mg PO Q6H PRN #0 tablet Aspirin 81 mg PO DAILY 03/06/18 Colchicine [Colcrys -] 0.6 mg PO BID 03/06/18 Family Disease History - Family Disease History Family History: Unremarkable Review of Systems - Review of Systems Constitutional: reports: No Symptoms Eyes: reports: No Symptoms HENT: reports: No Symptoms Neck: reports: No Symptoms Cardiovascular: reports: No Symptoms Respiratory: reports: No Symptoms Gastrointestinal: reports: No Symptoms Genitourinary: reports: No Symptoms Musculoskeletal: reports: No Symptoms Integumentary: reports: No Symptoms Neurological: reports: No Symptoms Endocrine: reports: No Symptoms Hematology/Lymphatic: reports: No Symptoms Vital Signs: Vital Signs Temperature 97.8 F 07/10/18 08:03 Pulse Rate 77 07/10/18 08:03 Respiratory Rate 17 07/10/18 08:03 Blood Pressure 109/79 07/10/18 08:03 O2 Sat by Pulse Oximetry (%) 97 07/10/18 08:03 Constitutional: Yes: No Distress, Calm Eyes: Yes: Conjunctiva Clear, EOM Intact HENT: Yes: Atraumatic, Normocephalic Neck: Yes: Supple, Trachea Midline Respiratory: Yes: Regular, CTA Bilaterally Gastrointestinal: Yes: Normal Bowel Sounds, Soft Cardiovascular: Yes: Regular Rate and Rhythm JVD: No Carotid Bruit: No PMI: Non-Displaced Heart Sounds: Yes: S1, S2 Musculoskeletal: No: Back Pain Extremities: No: Cold Edema: No Peripheral Pulses WNL: Yes Peripheral Pulses: 2+ Left Doralis Pedis, 2+ Right Dorsalis Pedis Integumentary: No: Jaundice Neurological: Yes: Alert, Oriented Psychiatric: No: Agitated - Other Data Labs, Other Data: CBC, BMP 07/10/18 05:30 07/10/18 05:30 Troponin, BNP 07/09/18 07/10/18 14:44 03:04 Troponin I < 0.02 < 0.02 Troponin, BNP 07/09/18 07/10/18 14:44 03:04 Troponin I < 0.02 < 0.02 Assessment/Plan EKG: sinus, nl intervals, no ischemic changes echo 06/2018 mild conc LVH, nl LV function, RV nl, LA mod dilated mild MR, mild TR Carotid doppler no hemodynamically significant stenosis tele: sinus L numbness, tingling, CVA - subacute stroke on MRI brain - neuro consulted - echo nl LV function - carotid ultrsound no stenosis - monitor on tele - cont aspirin, statin, lipitor inc to 40 mg daily HTN - cont HCTZ HLD - cont statin, increased to lipitor 40 mg daily
--- NOTE | 2018-07-10 16:37 | EKG ---
Test Reason : Blood Pressure : / mmHG Vent. Rate : 083 BPM Atrial Rate : 083 BPM P-R Int : 160 ms QRS Dur : 080 ms QT Int : 402 ms P-R-T Axes : 060 031 064 degrees QTc Int : 472 ms NORMAL SINUS RHYTHM NORMAL ECG WHEN COMPARED WITH ECG OF 06-MAR-2018 15:55, NO SIGNIFICANT CHANGE WAS FOUND Confirmed by ARGENIS SMITH MD ([id number]) on 07/10/2018 4:37:35 PM Referred By: Confirmed By:ARGENIS SMITH MD
[2018-07-10] MEDS: ATORVASTATIN CA 40 MG TABLET (FP) PO SCH (21:15)
[2018-07-10] MEDS ORDERED: ATORVASTATIN CA 20 MG TABLET (FP) PO SCH (22:00)
[2018-07-11 04:18] VITALS: BMI 30.7
[2018-07-11] MEDS: COLCHICINE 0.6 MG TABLET (FP) PO SCH ×2 (09:19→21:18)
[2018-07-11] MEDS: ASPIRIN 81 MG CHEWABLE TABLETS PO SCH (09:19)
[2018-07-11] MEDS: HEPARIN NA (PORCINE) 5,000 UNITS/ML 1ML VIAL SQ SCH ×2 (09:20→21:18)
[2018-07-11] MEDS: HYDROCHLOROTHIAZIDE 25 MG TABLET (FP) PO SCH (09:20)
--- NOTE | 2018-07-11 10:02 | PN ---
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 He thought it would resolved and when it was getting better he cam [facility] hosp[facility]. He denies any difficulty swallowing, motor weakness or speech disturbances now. his ct head is normal. he do take lipitor 20 mg and do not take antiplatelet and he denies any stroke or mi in the past. mri of brain showed right paramedian john lacunar stroke. Atorvastatin Ca [Lipitor] 20 mg PO HS 05/09/16 Hydrochlorothiazide [Hctz -] 25 mg PO DAILY 05/09/16 Acetaminophen [Tylenol .Regular Strength -] 650 mg PO Q6H PRN #0 tablet Aspirin 81 mg PO DAILY 03/06/18 Colchicine [Colcrys -] 0.6 mg PO BID 03/06/18 NEUROLOGICAL EXAMINATION Alert oriented x 3, speech is normal, no neck stiffness eomi, pupils reactive no face asymmetry moving all extremity sensation is diminished and dysthesia on face, arm and leg ct head is normal mri of brain showed acute right pontine stroke and chronic microbleed Assessment/Plan Right Pontine lacunar stroke, nih score is 1 and able to swallow. Patient came outside window for tpa. His bp was not high at admission. Plan:continue aspirin and statin at current dose dvt prophylaxis, PT Stroke education carotid ultrasound is uremarkable, chronic old bleed not contraindication for holding aspirin Thanking you so much You Patel MD
--- NOTE | 2018-07-11 12:12 | PN ---
Progress Note (short form) - Note Progress Note: s: no cp sob palps dizzy o: Vital Signs Period Temp Pulse Resp BP Sys/Holloway Pulse Ox Last 24 Hr 97.5 F-98.7 F 65-84 18-22 124-136/58-81 96-98 Constitutional: Yes: No Distress, Calm Eyes: Yes: Conjunctiva Clear Respiratory: Yes: Regular, CTA Bilaterally Gastrointestinal: Yes: Normal Bowel Sounds, Soft Cardiovascular: Yes: Regular Rate and Rhythm JVD: No Heart Sounds: Yes: S1, S2 Extremities: No: Cold Edema: No Peripheral Pulses: 2+ Left Doralis Pedis, 2+ Right Dorsalis Pedis Integumentary: No: Jaundice Neurological: Yes: Alert, Oriented Psychiatric: No: Agitated Current Medications Generic Name Dose Route Start Last Admin Trade Name Ismaelq PRN Reason Stop Dose Admin Aspirin 81 mg 07/10/18 10:00 07/11/18 09:19 Asa - PO 81 mg DAILY EVER Administration Atorvastatin Calcium 40 mg 07/10/18 22:00 07/10/18 21:15 Lipitor - PO 40 mg HS EVER Administration Colchicine 0.6 mg 07/10/18 10:00 07/11/18 09:19 Colcrys - PO 0.6 mg BID EVER Administration Heparin Sodium (Porcine) 5,000 unit 07/10/18 10:00 07/11/18 09:20 Heparin - SQ 5,000 unit BID EVER Administration Hydrochlorothiazide 25 mg 07/10/18 10:00 07/11/18 09:20 Hctz - PO 25 mg DAILY EVER Administration CBC, BMP 07/10/18 05:30 07/10/18 05:30 EKG: sinus, nl intervals, no ischemic changes echo 06/2018 mild conc LVH, nl LV function, RV nl, LA mod dilated mild MR, mild TR Carotid doppler no hemodynamically significant stenosis tele: sinus Assessment/Plan L numbness, tingling, CVA - subacute stroke on MRI brain - neuro consulted - echo nl LV function - carotid ultrsound no stenosis - tele benign - cont aspirin, statin HTN - cont HCTZ HLD - cont statin, increased to lipitor 40 mg daily
[2018-07-11] MEDS: ATORVASTATIN CA 40 MG TABLET (FP) PO SCH (21:18)
--- NOTE | 2018-07-11 21:47 | PN ---
Progress Note, Physician - Current Medication List Current Medications: Active Medications Aspirin (Asa -) 81 mg PO DAILY [facility] Last Admin: 07/11/18 09:19 Dose: 81 mg Atorvastatin Calcium (Lipitor -) 40 mg PO HS [facility] Last Admin: 07/11/18 21:18 Dose: 40 mg Colchicine (Colcrys -) 0.6 mg PO BID [facility] Last Admin: 07/11/18 21:18 Dose: 0.6 mg Heparin Sodium (Porcine) (Heparin -) 5,000 unit SQ BID [facility] Last Admin: 07/11/18 21:18 Dose: 5,000 unit Hydrochlorothiazide (Hctz -) 25 mg PO DAILY [facility] Last Admin: 07/11/18 09:20 Dose: 25 mg - Objective Vital Signs: Vital Signs Temperature 97.9 F 07/11/18 20:42 Pulse Rate 71 07/11/18 20:42 Respiratory Rate 18 07/11/18 20:42 Blood Pressure 119/56 L 07/11/18 20:42 O2 Sat by Pulse Oximetry (%) 96 07/11/18 20:42 Labs: CBC, BMP 07/10/18 05:30 07/10/18 05:30
--- NOTE | 2018-07-12 08:32 | PN ---
Progress Note, Physician Chief Complaint: off balance History of Present Illness: c/o balance off when walks. head feels "off" as well no palpit, cp, sob - Current Medication List Current Medications: Active Medications Aspirin (Asa -) 81 mg PO DAILY [facility] Last Admin: 07/11/18 09:19 Dose: 81 mg Atorvastatin Calcium (Lipitor -) 40 mg PO HS [facility] Last Admin: 07/11/18 21:18 Dose: 40 mg Colchicine (Colcrys -) 0.6 mg PO BID [facility] Last Admin: 07/11/18 21:18 Dose: 0.6 mg Heparin Sodium (Porcine) (Heparin -) 5,000 unit SQ BID [facility] Last Admin: 07/11/18 21:18 Dose: 5,000 unit Hydrochlorothiazide (Hctz -) 25 mg PO DAILY [facility] Last Admin: 07/11/18 09:20 Dose: 25 mg - Objective Vital Signs: Vital Signs Temperature 97.8 F 07/12/18 05:05 Pulse Rate 62 07/12/18 05:05 Respiratory Rate 18 07/12/18 05:05 Blood Pressure 111/73 07/12/18 05:05 O2 Sat by Pulse Oximetry (%) 96 07/11/18 20:42 Constitutional: Yes: Well Nourished, No Distress, Calm Cardiovascular: Yes: Regular Rate and Rhythm, S1, S2. No: Gallop, Murmur Respiratory: Yes: Regular, CTA Bilaterally. No: Accessory Muscle Use, Rales, Wheezes Extremities: No: Cold Edema: No Neurological: Yes: Alert, Oriented Psychiatric: No: Agitated Labs: CBC, BMP 07/10/18 05:30 07/10/18 05:30 Assessment/Plan EKG: sinus, nl intervals, no ischemic changes echo 06/2018 mild conc LVH, nl LV function, RV nl, LA mod dilated, mild MR, mild TR Carotid doppler: no hemodynamically significant stenosis tele: NSR Assessment/Plan CVA - subacute stroke on MRI brain - neuro following: aspirin, hi intensity statin as doing - echo, carotids unrevealing - tele benign, no fib/flutter HTN - bp controlled - cont HCTZ HLD - hi intensity statin as above D/C TELEMETRY (>72 hrs now)
[2018-07-12] MEDS: COLCHICINE 0.6 MG TABLET (FP) PO SCH ×2 (09:39→22:20)
[2018-07-12] MEDS: ASPIRIN 81 MG CHEWABLE TABLETS PO SCH (09:39)
[2018-07-12] MEDS: HYDROCHLOROTHIAZIDE 25 MG TABLET (FP) PO SCH (09:39)
[2018-07-12] MEDS: HEPARIN NA (PORCINE) 5,000 UNITS/ML 1ML VIAL SQ SCH ×2 (09:40→22:20)
--- NOTE | 2018-07-12 21:43 | PN ---
Progress Note, Physician - Current Medication List Current Medications: Active Medications Aspirin (Asa -) 81 mg PO DAILY [facility] Last Admin: 07/12/18 09:39 Dose: 81 mg Atorvastatin Calcium (Lipitor -) 40 mg PO HS [facility] Last Admin: 07/11/18 21:18 Dose: 40 mg Colchicine (Colcrys -) 0.6 mg PO BID [facility] Last Admin: 07/12/18 09:39 Dose: 0.6 mg Heparin Sodium (Porcine) (Heparin -) 5,000 unit SQ BID [facility] Last Admin: 07/12/18 09:40 Dose: 5,000 unit Hydrochlorothiazide (Hctz -) 25 mg PO DAILY [facility] Last Admin: 07/12/18 09:39 Dose: 25 mg - Objective Vital Signs: Vital Signs Temperature 98.6 F 07/12/18 18:00 Pulse Rate 80 07/12/18 18:00 Respiratory Rate 20 07/12/18 18:00 Blood Pressure 140/68 07/12/18 18:00 O2 Sat by Pulse Oximetry (%) 95 07/12/18 09:00 Labs: CBC, BMP 07/10/18 05:30 07/10/18 05:30
[2018-07-12] MEDS: ATORVASTATIN CA 40 MG TABLET (FP) PO SCH (22:20)
[2018-07-13] MEDS: COLCHICINE 0.6 MG TABLET (FP) PO SCH ×2 (10:03→21:26)
[2018-07-13] MEDS: HYDROCHLOROTHIAZIDE 25 MG TABLET (FP) PO SCH (10:03)
[2018-07-13] MEDS: HEPARIN NA (PORCINE) 5,000 UNITS/ML 1ML VIAL SQ SCH ×2 (10:03→21:26)
[2018-07-13] MEDS: ASPIRIN 81 MG CHEWABLE TABLETS PO SCH (10:03)
--- NOTE | 2018-07-13 10:19 | PN ---
Progress Note, Physician History of Present Illness: No CV complaints Still with left face, left arm and left leg numbness (?) No tele - Current Medication List Current Medications: Active Medications Aspirin (Asa -) 81 mg PO DAILY [facility] Last Admin: 07/13/18 10:03 Dose: 81 mg Atorvastatin Calcium (Lipitor -) 40 mg PO HS [facility] Last Admin: 07/12/18 22:20 Dose: 40 mg Colchicine (Colcrys -) 0.6 mg PO BID [facility] Last Admin: 07/13/18 10:03 Dose: 0.6 mg Heparin Sodium (Porcine) (Heparin -) 5,000 unit SQ BID [facility] Last Admin: 07/13/18 10:03 Dose: 5,000 unit Hydrochlorothiazide (Hctz -) 25 mg PO DAILY [facility] Last Admin: 07/13/18 10:03 Dose: 25 mg - Objective Vital Signs: Vital Signs Temperature 97 F L 07/13/18 10:02 Pulse Rate 67 07/13/18 10:02 Respiratory Rate 20 07/13/18 10:02 Blood Pressure 134/78 07/13/18 10:02 O2 Sat by Pulse Oximetry (%) 95 07/12/18 21:00 Constitutional: Yes: No Distress Eyes: Yes: WNL HENT: Yes: WNL Neck: Yes: WNL Cardiovascular: Yes: Regular Rate and Rhythm Respiratory: Yes: CTA Bilaterally Gastrointestinal: Yes: Normal Bowel Sounds Extremities: Yes: WNL Edema: No Labs: CBC, BMP 07/10/18 05:30 07/10/18 05:30 Assessment/Plan CVA - subacute stroke on MRI brain - neuro following: aspirin, hi intensity statin as doing - echo, carotids unrevealing - Off tele after 72 hours HTN - bp controlled - cont HCTZ HLD - hi intensity statin as above
[2018-07-13] MEDS: ATORVASTATIN CA 40 MG TABLET (FP) PO SCH (21:26)
--- NOTE | 2018-07-13 22:06 | PN ---
Progress Note, Physician - Current Medication List Current Medications: Active Medications Aspirin (Asa -) 81 mg PO DAILY [facility] Last Admin: 07/13/18 10:03 Dose: 81 mg Atorvastatin Calcium (Lipitor -) 40 mg PO HS [facility] Last Admin: 07/13/18 21:26 Dose: 40 mg Colchicine (Colcrys -) 0.6 mg PO BID [facility] Last Admin: 07/13/18 21:26 Dose: 0.6 mg Heparin Sodium (Porcine) (Heparin -) 5,000 unit SQ BID [facility] Last Admin: 07/13/18 21:26 Dose: 5,000 unit Hydrochlorothiazide (Hctz -) 25 mg PO DAILY [facility] Last Admin: 07/13/18 10:03 Dose: 25 mg - Objective Vital Signs: Vital Signs Temperature 98.0 F 07/13/18 17:51 Pulse Rate 73 07/13/18 17:51 Respiratory Rate 20 07/13/18 19:58 Blood Pressure 119/77 07/13/18 17:51 O2 Sat by Pulse Oximetry (%) 95 07/13/18 19:58 Labs: CBC, BMP 07/10/18 05:30 07/10/18 05:30
--- NOTE | 2018-07-13 22:15 | PN ---
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 He thought it would resolved and when it was getting better he came to hospita. He denies any difficulty swallowing, motor weakness or speech disturbances now. his ct head is normal. Before this hospital stay,he do take lipitor 20 mg and do not take antiplatelet and he denies any stroke or mi in the past. mri of brain showed right paramedian john lacunar stroke.his dizziness is better and NEUROLOGICAL EXAMINATION Alert oriented x 3, speech is normal, no neck stiffness eomi, pupils reactive no face asymmetry moving all extremity sensation is diminished and dysthesia on face, arm and leg ct head is normal mri of brain showed acute right pontine stroke and chronic microbleed carotid ultrasound no stenosis Assessment/Plan Right Pontine lacunar stroke, nih score is 1 and able to swallow. Patient came outside window for tpa. His bp was not high at admission. Plan:continue aspirin and statin at current dose dvt prophylaxis, PT Stroke education follow up outpatient Thanking you so much You Patel MD
[2018-07-14 08:49] VITALS: BP 116/78; PULSE 76; TEMP 98
[2018-07-14] MEDS: HYDROCHLOROTHIAZIDE 25 MG TABLET (FP) PO SCH (09:02)
[2018-07-14] MEDS: COLCHICINE 0.6 MG TABLET (FP) PO SCH (09:02)
[2018-07-14] MEDS: HEPARIN NA (PORCINE) 5,000 UNITS/ML 1ML VIAL SQ SCH (09:02)
[2018-07-14] MEDS: ASPIRIN 81 MG CHEWABLE TABLETS PO SCH (09:03)
--- NOTE | 2018-07-14 14:33 | PN ---
Progress Note (short form) - Note Progress Note: s: stable face, leg numbness. no chest pain, palps, dyspnea Current Medications Aspirin (Asa -) 81 mg PO DAILY [facility] Last Admin: 07/14/18 09:03 Dose: 81 mg Atorvastatin Calcium (Lipitor -) 40 mg PO HS [facility] Last Admin: 07/13/18 21:26 Dose: 40 mg Colchicine (Colcrys -) 0.6 mg PO BID [facility] Last Admin: 07/14/18 09:02 Dose: 0.6 mg Heparin Sodium (Porcine) (Heparin -) 5,000 unit SQ BID [facility] Last Admin: 07/14/18 09:02 Dose: 5,000 unit Hydrochlorothiazide (Hctz -) 25 mg PO DAILY [facility] Last Admin: 07/14/18 09:02 Dose: 25 mg Vital Signs Period Temp Pulse Resp BP Sys/Holloway Pulse Ox Last 24 Hr 97.6 F-98.2 F 69-91 18-20 116-147/59-79 95-95 Constitutional: Yes: No Distress Eyes: Yes: WNL HENT: Yes: WNL Neck: Yes: WNL Cardiovascular: Yes: Regular Rate and Rhythm Respiratory: Yes: CTA Bilaterally Gastrointestinal: Yes: Normal Bowel Sounds Extremities: Yes: WNL Edema: No Assessment/Plan CVA - subacute stroke on MRI brain - neuro following: aspirin, hi intensity statin as doing - echo, carotids unrevealing - Off tele after 72 hours, benign findings HTN - bp controlled - cont HCTZ HLD - hi intensity statin as above
== END 2018-07-14 15:48 | disposition home health service (06) | DRG 66 ==
LOC: JER 14:17 → JERBED 18:40 → OBSVTOIN 07-10 02:38 → J4W 07-10 18:44
PROVIDERS: ADMIT Internal Medicine; ATTEND Internal Medicine
DX: I63.81 Other cerebral infarction due to occlusion or stenosis of small artery (principal); I10 Essential (primary) hypertension; E78.5 Hyperlipidemia, unspecified; M10.9 Gout, unspecified; E66.8 Other obesity; R26.81 Unsteadiness on feet; R29.701 NIHSS score 1; Z86.19 Personal history of other infectious and parasitic diseases; Z68.30 Body mass index [BMI] 30.0-30.9, adult
CPT/HCPCS: 36415; 70450-TC; 70551-TC; 71045-TC-FY; 72100-TC-FY; 80053; 81003; 82550; 83735; 84484; 85025; 93005; 93010; 93306-TC; 93880-TC; 97116-GP; 97161-GP; 99285-25; G0378; J1644

== ENCOUNTER 2020-08-21 12:54 | Emergency (ER) | payer OTHER ==
[2020-08-21 12:58] VITALS: TEMP 97.2; BMI 30.1
[2020-08-21 14:04] LABS: BASO % 0.6 % (0-2.0); EOS % 4.6 % (0-4.5); HEMOGLOBIN 14.2 GM/dL (11.7-16.9); LYMPH % 15.7 % (8-40); MCH 31.8 pg (25.7-33.7); MCHC 33.9 g/dl (32.0-35.9); MEAN CELL VOLUME 93.9 fl (80-96); MONO % 8.5 % (3.8-10.2); NEUT % 70.6 % (42.8-82.8); PLATELET COUNT 226 K/MM3 (134-434); RBC 4.48 M/mm3 (4.00-5.60); WHITE BLOOD COUNT 9.9 K/mm3 (4.0-10.0)
[2020-08-21 14:13] LABS: INR 1.15 (0.83-1.09); PROTHROMBIN TIME (PATIENT) 13.9 SEC (9.7-13.0)
[2020-08-21 14:16] LABS: ACTIVATED PTT 26.7 SECONDS (25.2-36.5)
[2020-08-21] MEDS ORDERED: ACETAMINOPHEN 1000 MG/100 ML VIAL (NON FORMULARY) IVPB ONE (14:23)
[2020-08-21 14:26] LABS: CHLORIDE 103 mmol/L (98-107); SODIUM 137 mmol/L (136-145)
[2020-08-21] MEDS ORDERED: ACETAMINOPHEN INJECTION 100 ML IVPB ONE (14:28)
[2020-08-21 14:29] LABS: ALBUMIN 3.5 g/dl (3.4-5.0); ANION GAP 5 MMOL/L (8-16); BLOOD UREA NITROGEN 20.6 mg/dL (7-18); CALCIUM 8.8 mg/dL (8.5-10.1); CO2 29 mmol/L (21-32); GLUCOSE,RANDOM 163 mg/dL (74-106)
[2020-08-21 14:31] LABS: CHOLESTEROL 111 mg/dL (50-200); TRIGLYCERIDES 150 mg/dL (0-150)
[2020-08-21 14:32] LABS: CREATININE 1.1 mg/dL (0.55-1.3); SGOT/AST 18 U/L (15-37); SGPT/ALT 18 U/L (13-61)
[2020-08-21 14:33] LABS: LDL CHOLESTEROL (ONLY SJRH) 60 mg/dL (5-100)
[2020-08-21 14:34] LABS: BILIRUBIN,TOTAL 0.4 mg/dL (0.2-1); HDL CHOLESTEROL 31 mg/dL (40-60); TOT PROT 6.8 g/dl (6.4-8.2)
[2020-08-21 14:35] LABS: ALK PHOS 89 U/L (45-117)
[2020-08-21 14:54] LABS: PH,URINE 6.5 (5.0-8.0); URINE APPEARANCE CLEAR; URINE BILIRUBIN NEGATIVE (NEGATIVE); URINE COLOR YELLOW; URINE GLUCOSE (UA) 1+ (NEGATIVE); URINE KETONE NEGATIVE (NEGATIVE); URINE LEUK ESTERASE NEGATIVE (NEGATIVE); URINE NITRITE NEGATIVE (NEGATIVE); URINE PROTEIN NEGATIVE (NEGATIVE); URINE UROBILINOGEN 0.2 mg/dL (0.2-1.0)
[2020-08-21] MEDS ORDERED: predniSONE 20 MG TABLET (UD) PO ONE (15:20)
[2020-08-21 15:21] VITALS: BP 109/84; PULSE 74
[2020-08-21] MEDS ORDERED: predniSONE 20 MG TABLET (UD) ONE (15:29)
[2020-08-21 16:36] LABS: MAGNESIUM 1.8 mg/dL (1.8-2.4)
[2020-08-21 16:40] LABS: PHOSPHOROUS 2.2 mg/dL (2.5-4.9)
== END 2020-08-21 15:38 | disposition home or self-care (01) ==
LOC: JER 12:54
PROC: 3E0333Z Introduction of Anti-inflammatory into Peripheral Vein, Percutaneous Approach (ICD-10-PCS; principal; 2020-08-21)
DX: G51.0 Bell's palsy (principal)
CPT/HCPCS: 36415; 70450-TC; 70496-TC; 70498-TC; 80053; 80061; 81003; 82550; 82553; 82962; 83721; 83735; 84100; 84484; 85025; 85610; 85730; 86850; 86900; 86901; 93005; 93010; 96374; 99284-25; J0131

== ENCOUNTER 2020-10-21 15:19 | Emergency (ER) | payer OTHER ==
[2020-10-21 15:28] VITALS: BP 126/74; PULSE 105; TEMP 97.5; BMI 30.1
== END 2020-10-21 17:34 | disposition home or self-care (01) ==
LOC: JER 15:19 → JERFT 15:19
DX: M10.062 Idiopathic gout, left knee (principal)
CPT/HCPCS: 99281-25

== ENCOUNTER 2021-08-02 13:30 | Emergency (ER) | payer OTHER ==
[2021-08-02 13:59] VITALS: TEMP 97.9; BMI 30.9
[2021-08-02] MEDS: ALBUTEROL SO4 2.5/IPRATROPIUM 0.5 INH SOL 3 ML VIAL.NEB. NEB SCH ×4 (15:00→15:30)
[2021-08-02 15:35] LABS: BASO % 1.2 % (0-2.0); EOS % 14.1 % (0-4.5); HEMATOCRIT 48.5 % (35.4-49); LYMPH % 17.2 % (8-40); MCH 31.2 pg (25.7-33.7); MEAN CELL VOLUME 94.6 fl (80-96); NEUT % 59.5 % (42.8-82.8); PLATELET COUNT 245 10^3/uL (134-434); RBC 5.12 M/mm3 (4.00-5.60); RDW 15.1 % (11.9-15.9); WHITE BLOOD COUNT 9.8 K/mm3 (4.0-10.0)
[2021-08-02 16:01] LABS: ALBUMIN 4.1 g/dl (3.4-5.0); CALCIUM 9.8 mg/dL (8.5-10.1)
[2021-08-02 16:02] LABS: BLOOD UREA NITROGEN 22.1 mg/dL (7-18)
[2021-08-02] MEDS ORDERED: ALBUTEROL SO4 2.5/IPRATROPIUM 0.5 INH SOL 3 ML VIAL.NEB. NEB ONE ×2 (16:02→16:14)
[2021-08-02] MEDS ORDERED: methylPREDNISolone NA SUCC 125 MG/2 ML VIAL IVPB ONE (16:03)
[2021-08-02 16:05] LABS: CREATININE 1.2 mg/dL (0.55-1.3)
[2021-08-02 16:06] LABS: TOT PROT 7.1 g/dl (6.4-8.2)
[2021-08-02 16:07] LABS: BILIRUBIN,TOTAL 0.6 mg/dL (0.2-1)
[2021-08-02 16:10] LABS: N-TERMINAL BNP 79.4 pg/ml (5-450)
[2021-08-02] MEDS ORDERED: AZITHROMYCIN IVPB 500 MG in DEXTROSE 5%-WATER - 250 ML IVPB ONE (16:12)
[2021-08-02] MEDS ORDERED: methylPREDNISolone NA SUCC 40 MG/1 ML VIAL ONE (16:15)
[2021-08-02] MEDS ORDERED: AZITHROMYCIN IVPB 500 MG/250 ML BAG IVPB ONE (16:24)
[2021-08-02 17:15] VITALS: BP 122/78; PULSE 90
== END 2021-08-02 19:18 | disposition home or self-care (01) ==
LOC: JER 13:30
PROC: 3E0F7GC Introduction of Other Therapeutic Substance into Respiratory Tract, Via Natural or Artificial Opening (ICD-10-PCS; principal; 2021-08-02)
PROC: 3E03329 Introduction of Other Anti-infective into Peripheral Vein, Percutaneous Approach (ICD-10-PCS; 2021-08-02)
PROC: 3E033GC Introduction of Other Therapeutic Substance into Peripheral Vein, Percutaneous Approach (ICD-10-PCS; 2021-08-02)
DX: R06.02 Shortness of breath (principal); R05.1 Acute cough
CPT/HCPCS: 0241U-QW; 36415; 71045-TC-FY; 80053; 83880; 84484; 85025; 87807; 93005; 93010; 94640; 96374; 96375; 99285-25; C9803-CS; U0003; U0005

== ENCOUNTER 2023-01-08 04:21 | Day surgery (SDC) | payer OTHER ==
[2023-01-07 10:50] VITALS: BMI 29.2
[~2023-01-08 04:21] MED LIST changes: -ACETAMINOPHEN 325 MG TABLET (FP) PO PRN; -KETOROLAC TROMETHAMINE 0.5% EYE DROP 1 DROP DROPS OD SCH; +ONABOTULINUMTOXINA 200 UNIT/VIAL VIAL IM ONE
[2023-01-08 09:46] VITALS: RESP 18
[2023-01-08] MEDS ORDERED: FENTANYL CITRATE/PF 50 MCG/ML VIAL ONE (10:53)
[2023-01-08] MEDS ORDERED: MIDAZOLAM HCL 2 MG/2 ML SINGLE DOSE VIAL ONE (10:53)
[2023-01-08] MEDS ORDERED: ONABOTULINUMTOXINA 200 UNIT/VIAL VIAL IM ONE (11:10)
[2023-01-08 11:41] VITALS: TEMP 97.8
[2023-01-08 12:43] VITALS: BP 121/70; PULSE 65
== END 2023-01-08 12:50 | disposition home or self-care (01) ==
LOC: JASU-SURG 04:21
PROVIDERS: ATTEND Surgery
PROC: 015M3ZZ Destruction of Abdominal Sympathetic Nerve, Percutaneous Approach (ICD-10-PCS; principal; 2023-01-08 09:00)
DX: K43.9 Ventral hernia without obstruction or gangrene (principal)
CPT/HCPCS: J0585

== ENCOUNTER 2023-02-12 04:21 | Day surgery (SDC) | payer OTHER ==
[2023-02-12] MEDS ORDERED: CEFOXITIN SODIUM 1 GM IVPB ONE (09:31)
[2023-02-12] MEDS ORDERED: BUPIVACAINE HCL/PF 0.25% (2.5MG/ML) 10 ML VIAL ONE (09:31)
[2023-02-12] MEDS ORDERED: HEPARIN NA (PORCINE) 5,000 UNITS/ML 1ML VIAL ONE (09:32)
[2023-02-12] MEDS ORDERED: MIDAZOLAM HCL 2 MG/2 ML SINGLE DOSE VIAL ONE (09:42)
[2023-02-12] MEDS ORDERED: FENTANYL CITRATE/PF 50 MCG/ML VIAL ONE ×6 (09:43→15:35)
[2023-02-12] MEDS ORDERED: ROCURONIUM BROMIDE 50 MG/5 ML SYRINGE ONE (09:44)
[2023-02-12] MEDS ORDERED: cefOXitin SODIUM 2 GM VIAL (RESTRICTED TO ID) IVPB ONE (10:13)
[2023-02-12] MEDS ORDERED: ceFAZolin SODIUM 1 GM VIAL IVPB ONE (10:13)
[2023-02-12] MEDS ORDERED: ONDANSETRON 4 MG/2 ML VIAL ONE ×2 (10:37→10:38)
[2023-02-12] MEDS ORDERED: DEXAMETHASONE SOD PHOSPHATE 4 MG/1 ML VIAL ONE ×2 (10:37→10:38)
[2023-02-12] MEDS ORDERED: ONDANSETRON 4 MG/2 ML VIAL IVPUSH PRN (10:43)
[2023-02-12] MEDS ORDERED: oxyCODONE HCL 5 MG TABLET PO PRN ×3 (10:43→21:29)
[2023-02-12] MEDS ORDERED: LACTATED RINGERS SOLUTION 1,000 ML IV SCH ×2 (10:45→21:29)
[2023-02-12] MEDS ORDERED: ACETAMINOPHEN INJECTION 100 ML IVPB ONE (10:57)
[2023-02-12] MEDS ORDERED: NEOSTIGMINE METHYLSULFATE 0.5 MG/1 ML - 10 ML MDV ONE (12:06)
[2023-02-12] MEDS ORDERED: GLYCOPYRROLATE 0.2 MG/1 ML VIAL ONE (12:06)
[2023-02-12] MEDS ORDERED: KETOROLAC TROMETHAMINE 30 MG/1 ML VIAL ONE (15:42)
[2023-02-12] MEDS: KETOROLAC TROMETHAMINE 30 MG/1 ML VIAL IVPUSH ONE (15:45)
[2023-02-12] MEDS ORDERED: oxyCODONE HCL 5 MG TABLET ONE (20:03)
[2023-02-12] MEDS ORDERED: IBUPROFEN 600 MG TABLET (FP) PO PRN (21:29)
[2023-02-12] MEDS ORDERED: ACETAMINOPHEN 500 MG TABLET (FP) PO PRN (21:29)
[2023-02-12] MEDS ORDERED: COLCHICINE 0.6 MG TAB PO SCH (22:00)
[2023-02-12] MEDS ORDERED: ATORVASTATIN CA 40 MG TABLET (FP) PO SCH (22:00)
[2023-02-12] MEDS ORDERED: HYDROCHLOROTHIAZIDE 25 MG TABLET (FP) PO SCH (22:00)
[2023-02-13 01:19] VITALS: RESP 18; BMI 32.3
[2023-02-13] MEDS ORDERED: FUROSEMIDE 40 MG/4 ML INJECTABLE VIAL IVPUSH ONE (01:45)
[2023-02-13 02:13] LABS: ARTERIAL BLD GAS O2 SATURATION 97.1 % (95-98); ARTERIAL BLOOD GAS BASE EXCESS 0.5 mmol/L (-2-2); ARTERIAL BLOOD GAS PO2 91.6 mmHg (80-100); ARTERIAL BLOOD GAS pH 7.411 (7.350-7.450)
[2023-02-13 02:15] LABS: ALLENS TEST POSITIVE
[2023-02-13] MEDS ORDERED: MAG HYDROX/AL HYDROX/SIMETH 30 ML UNIT-DOSE CUP PO ONE (02:53)
[2023-02-13] MEDS: MAG HYDROX/AL HYDROX/SIMETH 30 ML UNIT-DOSE CUP PO SCH ×2 (06:50→12:14)
[2023-02-13] MEDS: KETOROLAC TROMETHAMINE 30 MG/1 ML VIAL IVPUSH ONE (07:50)
[2023-02-13 10:12] LABS: BASO % 0.1 % (0-2.0); EOS % 0.1 % (0-4.5); HEMATOCRIT 45.5 % (35.4-49); HEMOGLOBIN 15.2 GM/dL (11.7-16.9); LYMPH % 6.5 % (8-40); MCH 32.2 pg (25.7-33.7); MCHC 33.5 g/dl (32.0-35.9); MEAN CELL VOLUME 95.9 fl (80-96); MEAN PLT VOLUME 7.9 fl (7.5-11.1); MONO % 6.5 % (3.8-10.2); NEUT % 86.8 % (42.8-82.8); PLATELET COUNT 214 10^3/uL (134-434); RBC 4.74 M/mm3 (4.00-5.60); RDW 14.3 % (11.9-15.9); WHITE BLOOD COUNT 14.3 K/mm3 (4.0-10.0)
[2023-02-13 10:25] LABS: POTASSIUM 3.7 mmol/L (3.5-5.1)
[2023-02-13 10:29] LABS: BLOOD UREA NITROGEN 29.6 mg/dL (7-18); CALCIUM 8.7 mg/dL (8.5-10.1)
[2023-02-13 10:30] LABS: ALBUMIN 3.7 g/dl (3.4-5.0); MAGNESIUM 1.8 mg/dL (1.8-2.4)
[2023-02-13 10:33] LABS: CREATININE 1.4 mg/dL (0.55-1.3); PHOSPHOROUS 2.4 mg/dL (2.5-4.9)
[2023-02-13 10:34] LABS: BILIRUBIN,TOTAL 0.8 mg/dL (0.2-1); TOT PROT 6.9 g/dl (6.4-8.2)
[2023-02-13] MEDS ORDERED: NAPH,MB-DB/K PH,MBDB POWDER PACKET PO ONE (12:45)
[2023-02-13 14:43] VITALS: BP 130/67; TEMP 98.1
[2023-02-13 15:03] VITALS: PULSE 80
== END 2023-02-13 17:16 | disposition home or self-care (01) ==
LOC: JASU-SURG 04:21 → JASUSAT 04:21 → SUATTDRO 04:21 → J8W 20:09 → JASUSAT 02-13 17:16
PROVIDERS: ATTEND Nurse Practitioner Acute Care
PROC: 8E0W4CZ Robotic Assisted Procedure of Trunk Region, Percutaneous Endoscopic Approach (ICD-10-PCS; 2023-02-12)
PROC: 0WUF4JZ Supplement Abdominal Wall with Synthetic Substitute, Percutaneous Endoscopic Approach (ICD-10-PCS; principal; 2023-02-12 09:30)
DX: K43.9 Ventral hernia without obstruction or gangrene (principal); K42.9 Umbilical hernia without obstruction or gangrene
CPT/HCPCS: 36415; 36600; 71045-TC-FY; 80053; 82803; 83735; 83880; 84100; 85025; 93306-TC; 94760; 94761; 97116-GP; 97161-GP; C1781; J1644

== ENCOUNTER 2023-10-18 14:33 | Emergency (ER) | payer OTHER ==
[2023-10-18 14:47] VITALS: BP 102/65; PULSE 77; RESP 18; TEMP 98.4; BMI 30.1
[2023-10-18] MEDS ORDERED: IBUPROFEN 400 MG TABLET (FP) PO ONE (16:04)
[2023-10-18] MEDS ORDERED: ACETAMINOPHEN 325 MG TABLET (FP) ONE (16:04)
[2023-10-18] MEDS: ACETAMINOPHEN 325 MG TABLET (FP) PO ONE (16:27)
[2023-10-18] MEDS: IBUPROFEN 400 MG TABLET (FP) PO ONE (16:28)
[2023-10-18 16:34] LABS: BASO % 0.8 % (0-2.0); EOS % 6.3 % (0-4.5); HEMATOCRIT 44.2 % (35.4-49); HEMOGLOBIN 15.3 GM/dL (11.7-16.9); LYMPH % 18.1 % (8-40); MCH 32.5 pg (25.7-33.7); MCHC 34.6 g/dl (32.0-35.9); MEAN CELL VOLUME 93.9 fl (80-96); MEAN PLT VOLUME 8.3 fl (7.5-11.1); MONO % 10.9 % (3.8-10.2); NEUT % 63.9 % (42.8-82.8); PLATELET COUNT 195 10^3/uL (134-434); RBC 4.71 M/mm3 (4.00-5.60); WHITE BLOOD COUNT 9.8 K/mm3 (4.0-10.0)
[2023-10-18 16:53] LABS: POTASSIUM 3.2 mmol/L (3.5-5.1)
[2023-10-18 16:55] LABS: BLOOD UREA NITROGEN 22.3 mg/dL (7-18); CALCIUM 9.2 mg/dL (8.5-10.1)
[2023-10-18 16:56] LABS: ALBUMIN 3.8 g/dl (3.4-5.0)
[2023-10-18 16:59] LABS: CREATININE 1.3 mg/dL (0.55-1.3)
[2023-10-18 17:00] LABS: BILIRUBIN,TOTAL 0.8 mg/dL (0.2-1)
[2023-10-18 18:04] LABS: ERYTHROCYTE SEDIMENTATION RATE 15 mm/hr (0-20)
[2023-10-18] MEDS ORDERED: POTASSIUM CHLORIDE ORAL LIQUID 20 MEQ/15 ML ONE (18:14)
[2023-10-18] MEDS: POTASSIUM CHLORIDE ORAL LIQUID 20 MEQ/15 ML PO ONE (18:18)
[2023-10-18] MEDS ORDERED: ONDANSETRON *ODT* 4 MG TABLET ONE (18:34)
[2023-10-18] MEDS ORDERED: ALBUTEROL SO4 HFA INHALER IH ONE (18:38)
[2023-10-18] MEDS: ALBUTEROL SO4 HFA INHALER IH PRN (18:40)
[2023-10-18] MEDS: ONDANSETRON *ODT* 4 MG TABLET SL ONE (18:40)
== END 2023-10-18 18:58 | disposition home or self-care (01) ==
LOC: JER 14:33
PROC: 2W3CX1Z Immobilization of Right Lower Arm using Splint (ICD-10-PCS; principal; 2023-10-18)
DX: S69.91XA Unspecified injury of right wrist, hand and finger(s), initial encounter (principal); R06.2 Wheezing; W01.0XXA Fall on same level from slipping, tripping and stumbling without subsequent striking against object, initial encounter
CPT/HCPCS: 29125; 36415; 73110-TC-RT-FY; 73130-TC-RT-FY; 80053; 84550; 85025; 85651; 86140; 99284-25; Q0162

== ENCOUNTER 2023-10-24 15:46 | Emergency (ER) | payer OTHER ==
[2023-10-24 16:15] VITALS: BP 153/78; PULSE 84; RESP 18; TEMP 97.8; BMI 30.5
== END 2023-10-24 18:06 | disposition home or self-care (01) ==
LOC: JERFT 15:46 → JER 15:46 → JERFT 18:06
PROC: 2W3CX1Z Immobilization of Right Lower Arm using Splint (ICD-10-PCS; principal; 2023-10-24)
DX: M25.531 Pain in right wrist (principal)
CPT/HCPCS: 29125; 99283-25

== ENCOUNTER 2024-02-15 14:40 | Observation (INO) | payer OTHER ==
[2024-02-15] MEDS ORDERED: ACETAMINOPHEN 325 MG TABLET (FP) ONE (15:55)
[2024-02-15] MEDS: ACETAMINOPHEN 325 MG TABLET (FP) PO ONE (16:03)
[2024-02-15 16:35] LABS: BASO % 0.6 % (0-2.0); HEMATOCRIT 38.3 % (35.4-49); HEMOGLOBIN 12.9 GM/dL (11.7-16.9); LYMPH % 11.6 % (8-40); MCHC 33.6 g/dl (32.0-35.9); MEAN CELL VOLUME 92.2 fl (80-96); MEAN PLT VOLUME 7.9 fl (7.5-11.1); MONO % 11.2 % (3.8-10.2); NEUT % 74.6 % (42.8-82.8); PLATELET COUNT 261 10^3/uL (134-434); RBC 4.15 M/mm3 (4.00-5.60); RDW 16.4 % (11.9-15.9); WHITE BLOOD COUNT 10.5 K/mm3 (4.0-10.0)
[2024-02-15 16:43] LABS: INR 1.18 (0.83-1.09); PROTHROMBIN TIME (PATIENT) 13.5 SEC (9.7-13.0)
[2024-02-15 16:45] LABS: ACTIVATED PTT 27.4 SECONDS (25.2-36.5)
[2024-02-15 16:51] LABS: POTASSIUM 3.8 mmol/L (3.5-5.1)
[2024-02-15 16:53] LABS: CALCIUM 9.4 mg/dL (8.5-10.1)
[2024-02-15 16:54] LABS: ALBUMIN 3.4 g/dl (3.4-5.0); BLOOD UREA NITROGEN 19.3 mg/dL (7-18); MAGNESIUM 1.5 mg/dL (1.8-2.4)
[2024-02-15 16:57] LABS: CREATININE 1.1 mg/dL (0.55-1.3)
[2024-02-15 16:58] LABS: BILIRUBIN,TOTAL 0.8 mg/dL (0.2-1)
[2024-02-15 16:59] LABS: TOT PROT 6.9 g/dl (6.4-8.2)
[2024-02-15] MEDS ORDERED: MAGNESIUM 1GM/D5W - 1 GM/100 ML IVPB IVPB ONE (17:53)
[2024-02-15] MEDS: MAGNESIUM 1GM/D5W - 1 GM/100 ML IVPB IVPB ONE (17:54)
[2024-02-15] MEDS ORDERED: KETOROLAC TROMETHAMINE 15 MG/ML VIAL ONE (20:12)
[2024-02-15] MEDS: KETOROLAC TROMETHAMINE 15 MG/ML VIAL IVPUSH ONE (20:16)
[2024-02-15] MEDS ORDERED: ALBUTEROL SO4 HFA INHALER IH PRN (20:34)
[2024-02-15] MEDS ORDERED: ACETAMINOPHEN 1000 MG/100 ML BAG IV PRN (20:36)
[2024-02-15] MEDS ORDERED: COLCHICINE 0.6 MG TAB ONE (20:51)
[2024-02-15] MEDS: COLCHICINE 0.6 MG TAB PO ONE (20:55)
[2024-02-15] MEDS ORDERED: HYDROCHLOROTHIAZIDE 25 MG TABLET (FP) ONE (22:02)
[2024-02-15] MEDS ORDERED: ATORVASTATIN CA 40 MG TABLET (FP) ONE (22:02)
[2024-02-15] MEDS: INDOMETHACIN 50 MG CAPSULE PO SCH (22:23)
[2024-02-15] MEDS: DORZOLAMIDE HCL/TIMOLOL OPHTHALMIC SOLUTION 10 ML BOTTLE OU SCH (22:23)
[2024-02-15] MEDS: HYDROCHLOROTHIAZIDE 25 MG TABLET (FP) PO SCH (22:23)
[2024-02-15] MEDS: ATORVASTATIN CA 40 MG TABLET (FP) PO SCH (22:23)
[2024-02-15] MEDS: LATANOPROST 0.005% OPHTH SOLN 2.5ML BOTTLE OU SCH (22:23)
[2024-02-15 23:27] LABS: URIC ACID 6.4 mg/dL (2.6-7.2)
[2024-02-16 01:39] VITALS: BMI 30.9
[2024-02-16 08:08] LABS: HEMATOCRIT 36.1 % (35.4-49); HEMOGLOBIN 12.2 GM/dL (11.7-16.9); MCH 30.7 pg (25.7-33.7); MCHC 33.7 g/dl (32.0-35.9); MEAN PLT VOLUME 7.9 fl (7.5-11.1); PLATELET COUNT 240 10^3/uL (134-434); RBC 3.97 M/mm3 (4.00-5.60); RDW 16.7 % (11.9-15.9); WHITE BLOOD COUNT 8.7 K/mm3 (4.0-10.0)
[2024-02-16 08:21] LABS: POTASSIUM 3.7 mmol/L (3.5-5.1)
[2024-02-16 08:31] LABS: CALCIUM 8.8 mg/dL (8.5-10.1)
[2024-02-16 08:32] LABS: MAGNESIUM 1.9 mg/dL (1.8-2.4)
[2024-02-16 08:35] LABS: CREATININE 1.1 mg/dL (0.55-1.3); PHOSPHOROUS 4.5 mg/dL (2.5-4.9)
[2024-02-16 08:36] LABS: BILIRUBIN,TOTAL 0.7 mg/dL (0.2-1)
[2024-02-16] MEDS: COLCHICINE 0.6 MG TAB PO SCH (10:32)
[2024-02-16] MEDS: FLUTICASONE/UMECLIDIN/VILANTER(100-62.5-25 TRELEGY ELLIPTA) INAHLER IH SCH (12:20)
[2024-02-16] MEDS: COLCHICINE 0.6 MG CAP PO SCH (13:30)
[2024-02-17 18:40] LABS: URINE APPEARANCE CLEAR; URINE COLOR YELLOW; URINE GLUCOSE (UA) NEGATIVE (NEGATIVE)
[2024-02-17 18:41] LABS: URINE BILIRUBIN NEGATIVE (NEGATIVE); URINE KETONE NEGATIVE (NEGATIVE); URINE LEUK ESTERASE NEGATIVE (NEGATIVE); URINE NITRITE NEGATIVE (NEGATIVE); URINE PROTEIN NEGATIVE (NEGATIVE); URINE UROBILINOGEN 0.2 mg/dL (0.2-1.0)
[2024-02-17] MEDS: FAMOTIDINE 20 MG TABLET PO ONE (22:40)
[2024-02-18 08:37] LABS: BASO % 0.6 % (0-2.0); EOS % 3.3 % (0-4.5); HEMATOCRIT 35.6 % (35.4-49); HEMOGLOBIN 12.3 GM/dL (11.7-16.9); LYMPH % 12.8 % (8-40); MCH 30.9 pg (25.7-33.7); MCHC 34.5 g/dl (32.0-35.9); MEAN CELL VOLUME 89.7 fl (80-96); MEAN PLT VOLUME 8.2 fl (7.5-11.1); MONO % 11.6 % (3.8-10.2); NEUT % 71.7 % (42.8-82.8); PLATELET COUNT 270 10^3/uL (134-434); RBC 3.97 M/mm3 (4.00-5.60); WHITE BLOOD COUNT 9.1 K/mm3 (4.0-10.0)
[2024-02-18 08:56] LABS: CALCIUM 8.8 mg/dL (8.5-10.1)
[2024-02-18 08:57] LABS: ALBUMIN 2.9 g/dl (3.4-5.0); BLOOD UREA NITROGEN 50.5 mg/dL (7-18); MAGNESIUM 1.9 mg/dL (1.8-2.4)
[2024-02-18 09:00] LABS: CREATININE 1.4 mg/dL (0.55-1.3)
[2024-02-18 09:01] LABS: BILIRUBIN,TOTAL 0.2 mg/dL (0.2-1)
[2024-02-18 09:02] LABS: TOT PROT 5.8 g/dl (6.4-8.2)
[2024-02-18] MEDS: SODIUM CHLORIDE 0.45% 1,000 ML IV SCH (11:09)
[2024-02-18 15:58] VITALS: BP 129/90; PULSE 66; RESP 17; TEMP 98
== END 2024-02-18 16:25 | disposition home or self-care (01) ==
LOC: JER 14:40 → JERBED 20:11 → J7W 23:50
PROVIDERS: ADMIT Internal Medicine; ATTEND Nurse Practitioner Family
PROC: 3E0333Z Introduction of Anti-inflammatory into Peripheral Vein, Percutaneous Approach (ICD-10-PCS; principal; 2024-02-15)
PROC: 3E033GC Introduction of Other Therapeutic Substance into Peripheral Vein, Percutaneous Approach (ICD-10-PCS; 2024-02-15)
PROC: 3E0337Z Introduction of Electrolytic and Water Balance Substance into Peripheral Vein, Percutaneous Approach (ICD-10-PCS; 2024-02-15)
DX: I12.9 Hypertensive chronic kidney disease with stage 1 through stage 4 chronic kidney disease, or unspecified chronic kidney disease (principal); M10.9 Gout, unspecified; Z87.891 Personal history of nicotine dependence; R79.89 Other specified abnormal findings of blood chemistry; R26.2 Difficulty in walking, not elsewhere classified; I10 Essential (primary) hypertension; W18.39XA Other fall on same level, initial encounter; Y93.89 Activity, other specified; K44.9 Diaphragmatic hernia without obstruction or gangrene; Y92.091 Bathroom in other non-institutional residence as the place of occurrence of the external cause; Z86.73 Personal history of transient ischemic attack (TIA), and cerebral infarction without residual deficits; D72.829 Elevated white blood cell count, unspecified; E83.42 Hypomagnesemia; R22.41 Localized swelling, mass and lump, right lower limb; N18.9 Chronic kidney disease, unspecified; E86.0 Dehydration; E66.9 Obesity, unspecified; E78.00 Pure hypercholesterolemia, unspecified; Z90.49 Acquired absence of other specified parts of digestive tract; Z86.19 Personal history of other infectious and parasitic diseases; Z29.89 Encounter for other specified prophylactic measures; Z86.718 Personal history of other venous thrombosis and embolism
CPT/HCPCS: 36415; 70450-TC; 71045-TC-FY; 72125-TC; 73030-TC-LT-FY; 73590-TC-RT-FY; 73610-TC-RT-FY; 73630-TC-RT-FY; 73700-TC-RT; 76775-TC; 80053; 81003; 83735; 84100; 84484; 84550; 85025; 85027; 85610; 85730; 93005; 93010; 93970-TC; 96361; 96365; 96375; 97116-GP; 97162-GP; 99285-25; G0378